=== PATIENT | male | born 1950 | race Caucasian/White ===

== ENCOUNTER 2016-03-26 17:39 | Inpatient (IN) | payer MEDICARE, BC ==
[~2016-03-26] VITALS: Ht 167.6 cm; Wt 98.3 kg
[~2016-03-26 17:39] MED LIST: AMIO200T2 PO; ASPI81TA3 PO; ATOR20TA38 PO; CARI350T29 PO; CARV25TA97 PO; CLON0.1T95 PO; CLOP75TA27 PO; GABA100C14 PO; KENC1 TOP; LISI10TA2 PO; LORA1TAB PO; MULT-860 PO; NIT4 SL; SPIR25TA PO
--- NOTE | 2016-03-26 18:55 | ERA ---
ER Documentation Chief Complaint Date/Time DATE: 03/26/16 TIME: 18:54 Chief Complaint sob, speaking in full sentences HPI 65-year-old man with history multiple medical problems including CAD status post bypass, history of V. tach status post permanent defibrillator, hypertension presents with progressive dyspnea on exertion over the last 3 days. Patient reports increasing dyspnea with exertion over the last 3 days that has now developed dyspnea at rest. He denies any chest pain or associated nausea, vomiting, diaphoresis. Reports that he has been having trouble sleeping due to his shortness of breath and sleeps almost sitting up. Denies any bilateral lower extremity edema. Patient reports that he is normally on oxygen at home but does not know why he is taking it. Denies having a history of COPD or being a smoker. He reports a mild nonproductive cough but no fevers or chills. Has never had this dyspnea before. ROS All systems reviewed and are negative except as per history of present illness. Medications Home Meds Active Scripts Carvedilol* (Coreg*) 25 Mg Tab, 25 MG PO BID for 30 Days, TAB Prov:JOSE VELASQUEZ 07/15/15 Aspirin (Aspirin) 81 Mg Chew, 81 MG PO DAILY for 30 Days Prov:LINDA ARDON 12/22/14 Reported Medications Zinc Oxide/Petrolatum,White (Remedy Phytoplex Z-Guard Paste) 113 Gm Paste..g., 113 GM TP DAILY 03/26/16 Lisinopril* (Lisinopril*) 20 Mg Tablet, 20 MG PO DAILY, #30 TAB 03/26/16 Temazepam* (Temazepam*) 15 Mg Capsule, 15 MG PO HS Y for INSOMNIA, CAP 03/26/16 Duloxetine Hcl* (Duloxetine Hcl*) 60 Mg Capsule.dr, 60 MG PO QHS, #30 CAP 03/26/16 Gabapentin* (Gabapentin*) 300 Mg Capsule, 300 MG PO BID, #60 CAP 03/26/16 Carisoprodol* (Carisoprodol*) 350 Mg Tablet, 350 MG PO BID, TAB 06/12/15 Amiodarone Hcl* (Amiodarone Hcl*) 200 Mg Tablet, 200 MG PO BID, TAB 06/12/15 Clopidogrel Bisulfate (Clopidogrel) 75 Mg Tablet, 75 MG PO DAILY, #30 TAB 02/17/15 Atorvastatin Calcium* (Atorvastatin Calcium*) 20 Mg Tablet, 20 MG PO DAILY, TAB 01/06/15 Clonidine Hcl (KAPVAY) 0.1 Mg Tab.er.12h, 0.1 MG PO BID Y for ELEVATED BLOOD PRESSURE GIVE IF BLOOD PRESSURE IS 150/90 11/12/12 Discontinued Reported Medications Mu-Vits-Min Th/Lycopene/Lutein (CENTRUM SILVER TABLET) 1 Each Tablet, 1 EACH PO DAILY, TAB 06/12/15 Lorazepam* (Lorazepam*) 1 Mg Tablet, 1 MG PO HS Y for AGITATION/ANXIETY, TAB 06/12/15 Gabapentin* (Gabapentin*) 100 Mg Capsule, 100 MG PO QHS, CAP 06/12/15 Discontinued Scripts Lisinopril* (Lisinopril*) 10 Mg Tablet, 10 MG PO DAILY for 30 Days, TAB Prov:THOMAS DYER 09/01/15 Triamcinolone Acetonide* (Kenalog*) 0.1%-15GM Cr, 1 APPLIC TOP BID for 7 Days Prov:THOMAS DYER 09/01/15 Spironolactone* (Aldactone*) 25 Mg Tab, 25 MG PO DAILY for 30 Days, TAB Prov:JOSE VELASQUEZ 07/15/15 Nitroglycerin* (Nitrostat*) 25 Tab Subl, 0.4 MG SL Q5M Y for CHEST PAIN, #30 Prov:LINDA ARDON 12/22/14 Allergies Allergies: Coded Allergies: No Known Allergy (Unverified , 03/26/16) PMhx/Soc CAD status post bypass, history of V. tach status post permanent defibrillator, hypertension History of Surgery: Yes (pls see EMR) Anesthesia Reaction: No Hx 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 Disorder: No Hx Respiratory Disorders: No Hx Cardiac Disorders: Yes (HTN, CAD, HLD) Hx Psychiatric Problems: No Hx Alcohol Use: No Hx Substance Use: No Hx Tobacco Use: No Smoking Status: Never smoker FmHx Family History: No coronary disease, No diabetes, No other Physical Exam Vitals Vital Signs Date Time Temp Pulse Resp B/P Pulse Ox O2 Delivery O2 Flow Rate FiO2 03/26/16 21:30 98.2 81 18 157/81 94 Nasal Cannula 2.0 03/26/16 19:20 Nasal Cannula 2 03/26/16 18:50 Nasal Cannula 2.0 03/26/16 17:47 99.3 80 18 156/74 92 Physical Exam General: alert, unkempt, mild to moderate distress due to dyspnea, AOx4. Head: Atraumatic, normocephalic Eyes: pupils equal and reactive, extraocular eye movements intact, sclera anicteric. Ears: bilateral TM's and external ear canals normal. Oropharynx: moist mucous membranes, pharynx normal without lesions. Neck: supple, no significant adenopathy. + JVd Heart: normal rate, regular rhythm, normal S1, S2, no murmurs, rubs, clicks or gallops. Peripheral pulses: normal Lungs: bibasilar crackles with decreased breath sounds in LLL > RLL Abdomen: soft, nontender, nondistended, no masses or organomegaly Extremities: no joint tenderness, deformity or swelling. Skin: normal coloration and turgor, no rashes, no suspicious skin lesions noted. Neurologic: Alert, moving all extremities symmetrically x 4, sensation grossly intact, no gross deficits Result Diagram: 03/26/16194903/26/161949 Results 24 hrs Laboratory Tests Test 03/26/16 19:50 Activated Partial Thromboplast Time 31.3Sec Anion Gap 12 B-Type Natriuretic Peptide 4810PG/ML Basophils # 0.010^3/ul Basophils % 0.2% Blood Urea Nitrogen 21mg/dl Calcium Level 8.8mg/dl Carbon Dioxide Level 27mmol/L Chloride Level 108mmol/L Creatinine 1.09mg/dl Eosinophils # 0.210^3/ul Eosinophils % 1.8% Glucose Level 91mg/dl Hematocrit 33.8% Hemoglobin 11.2g/dl INR International Normalized Ratio 1.13 Lymphocytes # 1.510^3/ul Lymphocytes % 13.6% Mean Corpuscular Hemoglobin 29.8pg Mean Corpuscular Hemoglobin Concent 33.0g/dl Mean Corpuscular Volume 90.1fl Mean Platelet Volume 9.2fl Monocytes # 0.910^3/ul Monocytes % 8.1% Neutrophils # 8.310^3/ul Neutrophils % 76.3% Nucleated Red Blood Cells # 0.010^3/ul Nucleated Red Blood Cells % 0.0/100WBC Platelet Count 02250^3/UL Potassium Level 4.0mmol/L Prothrombin Time 14.5Sec Prothrombin Time Ratio 1.1 Red Blood Count 3.7510^6/ul Red Cell Distribution Width 14.2% Sodium Level 143mmol/L Troponin I < 0.012ng/ml White Blood Count 10.910^3/ul Current Medications Medications (Trade) Dose Ordered Sig/Juancarlos Route PRN Reason Start Time Stop Time Status Last Admin Dose Admin Furosemide (Lasix) 20 mg ONCE ONCE IV 03/26/16 22:00 03/26/16 22:01 DC 03/26/16 21:52 Procedures/MDM EKG, MONITORS, & DIAGNOSTIC IMAGING: EKG atrially paced at [address] flattening no ST elevations, no ST depressions. Right axis deviation and right bundle branch block. Nondiagnostic EKG. CXR: IMPRESSION: 1. Mild left basilar atelectasis. 2. Mild pulmonary edema. 3. Mild cardiomegaly. 4. Previous CABG. 5. Dual lead permanent pacemaker/internal cardiac defibrillator. 6. Small left pleural effusion. LAB INTERPRETATION: WBC 10.9, hemoglobin 11.2, chemistry unremarkable. Troponin unremarkable. BNP 4810. [employer]-year-old man with history multiple medical problems including CAD status post bypass, history of V. tach status post permanent defibrillator, hypertension presents with progressive dyspnea on exertion over the last 3 days likely due to heart failure exacerbation. Patient will also require ACS rule out given he has high risk and there is no clear precipitant for developing heart failure. No prior documented echocardiogram on file patient with clinical symptoms of heart failure and a BNP in the 4000s. Afebrile vitals remarkable for tachypnea and hypoxia that improves with O2 otherwise unremarkable. Exam per note. Chest x-ray showing pulmonary venous congestion and possible left pleural effusion. EKG nondiagnostic but does have diffuse ST flattening. Patient was given aspirin and Lasix 20 mg IV for diuresis. Will admit to telemetry for continued management and workup of his heart failure exacerbation. Departure Diagnosis: Primary Impression: Shortness of breath Additional Impression: CHF exacerbation Qualified Code: I50.9 - Acute on chronic congestive heart failure, unspecified congestive heart failure type Condition: KACIE Gallegos MD Mar 26, 2016 18:55
[2016-03-26] MEDS ORDERED: GABA300C16 PO (19:12)
[2016-03-26] MEDS ORDERED: TEMA15CA PO (19:13)
[2016-03-26] MEDS ORDERED: DULO60CA59 PO (19:13)
[2016-03-26] MEDS ORDERED: LISI20TA11 PO (19:14)
[2016-03-26] MEDS ORDERED: [UNRECOGNIZED DRUG - CODE] TP (19:17)
[2016-03-26 20:11] LABS: BASOPHILS % 0.2 % (0.0-2.0); EOSINOPHILS # 0.2 10^3/ul (0.0-0.5); EOSINOPHILS % 1.8 % (0.0-7.0); HEMATOCRIT 33.8 % (42.0-52.0); HEMOGLOBIN 11.2 g/dl (14.0-18.0); LYMPHOCYTES # 1.5 10^3/ul (0.8-2.9); LYMPHOCYTES % 13.6 % (15.0-51.0); MEAN CORPUSCULAR HEMOGLOBIN 29.8 pg (29.0-33.0); MEAN CORPUSCULAR VOLUME 90.1 fl (82.0-101.0); MEAN PLATELET VOLUME 9.2 fl (7.4-10.4); MONOCYTE # 0.9 10^3/ul (0.3-0.9); MONOCYTES % 8.1 % (0.0-11.0); NEUTROPHIL # 8.3 10^3/ul (1.6-7.5); NEUTROPHILS % 76.3 % (39.0-77.0); PLATELET COUNT 291 10^3/UL (140-440); RED BLOOD COUNT 3.75 10^6/ul (4.70-6.10); RED CELL DISTRIBUTION WIDTH 14.2 % (11.5-14.5); UNCORRECTED WBC 10.9 10^3/ul (4.8-10.8); WHITE BLOOD COUNT 10.9 10^3/ul (4.8-10.8)
--- NOTE | 2016-03-26 20:11 | RADRPT ---
PROCEDURE: XR Chest. CLINICAL INDICATION: Chest pain. TECHNIQUE: Single frontal view. COMPARISON: 09/22/2015. FINDINGS: There is mild left basilar atelectasis, unchanged. There is mild pulmonary edema. The lungs are ot herwise clear. The heart is mildly enlarged. There are sternal wires and mediastinal clips. There is a left-sided dual lead permanent pacemaker/internal cardiac defibrillator. There is no right pleural effusion. There is a small left pleural effusion. There is no pneumothorax. IMPRESSION: 1. Mild left basilar atelectasis. 2. Mild pulmonary edema. 3. Mild cardiomegaly. 4. Previous CABG. 5. Dual lead permanent pacemaker/internal cardiac defibrillator. 6. Small left pleural effusion. RPTAT: QQ .Luis Govea MD, Date Time Electronically viewed and signed by .Luis Govea MD, on 03/26/2016 20:11 .R/
[2016-03-26 20:17] LABS: CHLORIDE 108 mmol/L (97-110); CONDITION 1; INR 1.13; PROTIME 14.5 Sec (12.2-14.2); PT RATIO 1.1; SODIUM 143 mmol/L (135-144)
[2016-03-26 20:19] LABS: CREATININE 1.09 mg/dl (0.61-1.24); PARTIAL THROMBOPLASTIN TIME 31.3 Sec (25.0-35.0)
[2016-03-26 20:20] LABS: ANION GAP 12 (8-16); BLOOD UREA NITROGEN 21 mg/dl (7-20); CALCIUM 8.8 mg/dl (8.4-10.2); CARBON DIOXIDE 27 mmol/L (21-31); GLUCOSE 91 mg/dl (70-220)
[2016-03-26 20:53] LABS: TROPONIN-I < 0.012 ng/ml (0.00-0.12)
[2016-03-26] MEDS ORDERED: FUROSEMIDE 20 MG INJ IV ONE (22:00)
[2016-03-27] VITALS (8 sets, daily range): BP systolic 142–174; BP diastolic 75–88; PULSE 78–80; RESP 19–80; TEMP 98.1; Ht 167.6 cm; Wt 98.3 kg
[2016-03-27] MEDS ORDERED: ACETAMINOPHEN 325 MG TAB PO PRN ×2 (04:30→12:00)
[2016-03-27 07:45] LABS: BASOPHILS % 0.4 % (0.0-2.0); EOSINOPHILS # 0.3 10^3/ul (0.0-0.5); EOSINOPHILS % 3.4 % (0.0-7.0); HEMATOCRIT 36.3 % (42.0-52.0); HEMOGLOBIN 11.9 g/dl (14.0-18.0); LYMPHOCYTES # 1.8 10^3/ul (0.8-2.9); MEAN CORPUSCULAR HEMOGLOBIN 29.5 pg (29.0-33.0); MEAN CORPUSCULAR HGB CONC 32.8 g/dl (32.0-37.0); MEAN CORPUSCULAR VOLUME 89.9 fl (82.0-101.0); MEAN PLATELET VOLUME 8.8 fl (7.4-10.4); MONOCYTE # 0.9 10^3/ul (0.3-0.9); MONOCYTES % 9.9 % (0.0-11.0); NEUTROPHIL # 6.2 10^3/ul (1.6-7.5); NEUTROPHILS % 67.3 % (39.0-77.0); PLATELET COUNT 305 10^3/UL (140-440); RED BLOOD COUNT 4.04 10^6/ul (4.70-6.10); RED CELL DISTRIBUTION WIDTH 14.3 % (11.5-14.5); UNCORRECTED WBC 9.3 10^3/ul (4.8-10.8); WHITE BLOOD COUNT 9.3 10^3/ul (4.8-10.8)
[2016-03-27 07:52] LABS: CONDITION 1
[2016-03-27 07:55] LABS: ALBUMIN 3.2 g/dl (3.3-4.9)
[2016-03-27 07:56] LABS: POTASSIUM 3.8 mmol/L (3.5-5.1)
[2016-03-27 07:58] LABS: ALBUMIN/GLOBULIN RATIO 1.06; BILIRUBIN,INDIRECT 0.6 mg/dl (0-1.1); BILIRUBIN,TOTAL 0.6 mg/dl (0.2-1.3); CREATININE 1.08 mg/dl (0.61-1.24); TOTAL PROTEIN 6.2 g/dl (6.1-8.1)
[2016-03-27 07:59] LABS: CALCIUM 8.9 mg/dl (8.4-10.2)
[2016-03-27] MEDS ORDERED: LISINOPRIL 20 MG TAB PO ONE (09:00)
[2016-03-27] MEDS ORDERED: FUROSEMIDE 20 MG INJ IV ONE (09:00)
[2016-03-27] MEDS ORDERED: ZOLPIDEM 5 MG TAB PO PRN (11:30)
[2016-03-27] MEDS: LISINOPRIL 20 MG TAB PO SCH (11:30)
--- NOTE | 2016-03-27 12:15 | HP ---
Date/Time of Note Date/Time of Note DATE: 03/27/16 TIME: 11:54 Assessment/Plan VTE Prophylaxis VTE Prophylaxis Intervention: LMWH, other Lines/Catheters IV [facility] (from [facility] Peripheral IV Urinary Cath still in place: No Assessment/Plan Assessment/Plan -Shortness of breath -CHF exacerbation - BNP 4810 - Cardiology consult appreciated - 2D Echo- to fu -Mild pulmonary edema sec to above - on lasix 20 mg PO bid - KCL- 20 meq po daily -Mild left basilar atelectasis. -Mild cardiomegaly. -SP CABG. - Dual lead permanent pacemaker/internal cardiac defibrillator. -Small left pleural effusion. -Coronary Artery Disease -History of V. tach status post permanent defibrillator - cont on Amiodarone -Hypertension- Lisinopril, clonidine -Dyslipidemia - cont on Lipitor PLAN - Admit to tele - O2 2L via [place] - Admission orders done - Resume home meds - Cardiac diet - am LABS - 2d Echo today Dw Dr Dr Kramer/staff/patient HPI/ROS Admit Date/Time Admit Date/Time Mar 26, 2016 at 21:50 Hx of Present Illness sob, speaking in full sentences HPI 65-year-old man with history multiple medical problems including CAD status post bypass, history of V. tach status post permanent defibrillator, hypertension presents with progressive dyspnea on exertion over the last 3 days. Patient reports increasing dyspnea with exertion over the last 3 days that has now developed dyspnea at rest. He denies any chest pain or associated nausea, vomiting, diaphoresis. Reports that he has been having trouble sleeping due to his shortness of breath and sleeps almost sitting up. Denies any bilateral lower extremity edema. Patient reports that he is normally on oxygen at home but does not know why he is taking it. Denies having a history of COPD or being a smoker. He reports a mild nonproductive cough but no fevers or chills. Has never had this dyspnea before. ROS All systems reviewed and are negative except as per history of present illness. Medications Home Meds Active Scripts Carvedilol* (Coreg*) 25 Mg Tab, 25 MG PO BID for 30 Days, TAB Prov:JOSE VELASQUEZ 07/15/15 Aspirin (Aspirin) 81 Mg Chew, 81 MG PO DAILY for 30 Days Prov:LINDA ARDON 10/12/15 Reported Medications Zinc Oxide/Petrolatum,White (Remedy Phytoplex Z-Guard Paste) 113 Gm Paste..g., 113 GM TP DAILY 03/26/16 Lisinopril* (Lisinopril*) 20 Mg Tablet, 20 MG PO DAILY, #30 TAB 03/26/16 Temazepam* (Temazepam*) 15 Mg Capsule, 15 MG PO HS Y for INSOMNIA, CAP 03/26/16 Duloxetine Hcl* (Duloxetine Hcl*) 60 Mg Capsule.dr, 60 MG PO QHS, #30 CAP 03/26/16 Gabapentin* (Gabapentin*) 300 Mg Capsule, 300 MG PO BID, #60 CAP 03/26/16 Carisoprodol* (Carisoprodol*) 350 Mg Tablet, 350 MG PO BID, TAB 06/12/15 Amiodarone Hcl* (Amiodarone Hcl*) 200 Mg Tablet, 200 MG PO BID, TAB 06/12/15 Clopidogrel Bisulfate (Clopidogrel) 75 Mg Tablet, 75 MG PO DAILY, #30 TAB 02/17/15 Atorvastatin Calcium* (Atorvastatin Calcium*) 20 Mg Tablet, 20 MG PO DAILY, TAB 01/06/15 Clonidine Hcl (KAPVAY) 0.1 Mg Tab.er.12h, 0.1 MG PO BID Y for ELEVATED BLOOD PRESSURE GIVE IF BLOOD PRESSURE IS 150/90 11/12/12 Discontinued Reported Medications Mu-Vits-Min Th/Lycopene/Lutein (CENTRUM SILVER TABLET) 1 Each Tablet, 1 EACH PO DAILY, TAB 06/12/15 Lorazepam* (Lorazepam*) 1 Mg Tablet, 1 MG PO HS Y for AGITATION/ANXIETY, TAB 06/12/15 Gabapentin* (Gabapentin*) 100 Mg Capsule, 100 MG PO QHS, CAP 06/12/15 Discontinued Scripts Lisinopril* (Lisinopril*) 10 Mg Tablet, 10 MG PO DAILY for 30 Days, TAB Prov:THOMAS DYER 09/01/15 Triamcinolone Acetonide* (Kenalog*) 0.1%-15GM Cr, 1 APPLIC TOP BID for 7 Days Prov:THOMAS DYER 09/01/15 Spironolactone* (Aldactone*) 25 Mg Tab, 25 MG PO DAILY for 30 Days, TAB Prov:JOSE VELASQUEZ 07/15/15 Nitroglycerin* (Nitrostat*) 25 Tab Subl, 0.4 MG SL Q5M Y for CHEST PAIN, #30 Prov:LINDA ARDON 12/22/14 Allergies Allergies: Coded Allergies: No Known Allergy (Unverified , 03/26/16) ROS Constitutional: improved, other (on o2 - 2L via [place]) ENT: no complaints Respiratory: shortness of breath (better than before) Cardiovascular: no complaints Gastrointestinal: no complaints Genitourinary: no complaints Musculoskeletal: no complaints Skin: no complaints Neurologic: no complaints Endocrine: no complaints Lymphatic: no complaints Psychological: no complaints Immunologic: no complaints PMH/Family/Social Past Medical History PMhx/Soc CAD status post bypass, history of V. tach status post permanent defibrillator, hypertension History of Surgery: Yes (pls see EMR) Anesthesia Reaction: No Hx 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 Disorder: No Hx Respiratory Disorders: No Hx Cardiac Disorders: Yes (HTN, CAD, HLD) Hx Psychiatric Problems: No Hx Alcohol Use: No Hx Substance Use: No Hx Tobacco Use: No Smoking Status: Never smoker FmHx Family History: No coronary disease, No diabetes, No other Social History Alcohol Use: none Smoking Status: Never smoker Drug Use: none Exam/Review of Systems Vital Signs Vitals Vital Signs Date Time Temp Pulse Resp B/P Pulse Ox O2 Delivery O2 Flow Rate FiO2 03/27/16 11:45 99.2 80 80 174/79 98 03/27/16 08:45 Nasal Cannula 2.0 Exam Constitutional: alert, oriented, other Psych: nl mood/affect Eyes: EOMI, PERRL, nl sclera ENMT: nl external ears & nose Neck: non-tender Respiratory: diminished breath sounds Cardiovascular: nl pulses Gastrointestinal: non-tender, soft Musculoskeletal: nl extremities to inspection Extremities: edema (Bilateral feet), normal pulses 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: nl mental status, nl speech Lymph: nontender Labs Result Diagram: 03/27/16 0723 03/27/16 0723 Medications Medications Current Medications Acetaminophen (Tylenol Tab) 650 mg Q4 PRN PO PAIN OR TEMP ABOVE 38C; Start at 04:30 Amiodarone HCl (Cordarone) 200 mg BID PO ; Start 03/27/16 at 11:30 Aspirin (Aspirin) 81 mg DAILY PO ; Start 03/27/16 at 11:30 Atorvastatin Calcium (Lipitor) 20 mg DAILY PO ; Start 03/28/16 at 09:00 Carisoprodol (Soma) 350 mg BID PO ; Start 03/27/16 at 11:30 Carvedilol (Coreg) 25 mg BID PO ; Start 03/27/16 at 11:30 Clopidogrel Bisulfate (plaVIX) 75 mg DAILY PO ; Start 03/27/16 at 11:30 Duloxetine HCl (Cymbalta) 60 mg QHS PO ; Start 03/27/16 at 21:00 Gabapentin (Neurontin) 300 mg BID PO ; Start 03/27/16 at 11:30 Lisinopril (Zestril) 20 mg DAILY PO ; Start 03/27/16 at 11:30 Clonidine (Catapres) 0.1 mg Q6H PRN PO SBP ABOVE 160; Start 03/27/16 at 11:30 Zolpidem Tartrate (Ambien) 5 mg HS PRN PO INSOMNIA; Start 03/27/16 at 11:30 Potassium Chloride (Klor-Con 20) 20 meq DAILY PO ; Start 03/27/16 at 12:00 Acetaminophen (Tylenol Tab) 650 mg Q6H PRN PO PAIN AND OR ELEVATED TEMP; Start 03/27/16 at 12:00; Status UNV Docusate Sodium (Colace) 100 mg BID PO ; Start 03/27/16 at 12:00; Status UNV Procedures Procedures 1. EKG atrially paced at [address] flattening no ST elevations, no ST depressions. Right axis deviation and right bundle branch block. Nondiagnostic EKG. 2. CXR: IMPRESSION: 1. Mild left basilar atelectasis. 2. Mild pulmonary edema. 3. Mild cardiomegaly. 4. Previous CABG. 5. Dual lead permanent pacemaker/internal cardiac defibrillator. 6. Small left pleural effusion. 3. LAB INTERPRETATION: WBC 10.9, hemoglobin 11.2, chemistry unremarkable. Troponin unremarkable. BNP 4810. THOMAS DYER Mar 27, 2016 12:04
[2016-03-27] MEDS ORDERED: PANTOPRAZOLE (EC) 40 MG TAB PO ONE (12:30)
[2016-03-27] MEDS: POTASSIUM CHLORIDE (SR) 20 MEQ TAB PO SCH (12:38)
[2016-03-27] MEDS: DOCUSATE SODIUM 100 MG CAP PO SCH ×2 (12:39→21:30)
[2016-03-27] MEDS: CLOPIDOGREL 75 MG TAB PO SCH (12:39)
[2016-03-27] MEDS: ASPIRIN 81 MG TAB PO SCH (12:39)
[2016-03-27] MEDS: AMIODARONE 200 MG TAB PO SCH ×2 (12:39→21:31)
[2016-03-27] MEDS: GABAPENTIN 300 MG CAP PO SCH ×2 (12:39→21:30)
[2016-03-27] MEDS: ENOXAPARIN 30 MG/0.3 ML SYG SC SCH (12:49)
[2016-03-27] MEDS: CARISOPRODOL 350 MG TAB PO SCH ×2 (13:35→21:31)
[2016-03-27] MEDS: FUROSEMIDE 20 MG TAB PO SCH (18:00)
--- NOTE | 2016-03-27 18:57 | CONS ---
Date/Time of Note Date/Time of Note DATE: 03/27/16 TIME: 18:50 Assessment/Plan Assessment/Plan Additional Assessment/Plan Acute decompensated congestive heart failure CAD with history of CABG Hypertension Dyslipidemia -Patient with improvement in symptoms, would adjust dosing of diuretic, continue beta gaby, APRIL inhibitor. Would check serial cardiac enzymes, echocardiogram pending. Dr Gaxiola to resume care 03/28/16 Consultation Date/Type/Reason Admit Date/Time Mar 26, 2016 at 21:50 Type of Consultation: cv Reason for Consultation Shortness of breath Hx of Present Illness This is a 65-year-old male with past medical history of cardiomyopathy, CAD with history of CABG and PCI, hypertension who presents with shortness of breath. Symptoms were going on for one day. Denied any fevers or chills, lightheadedness or chest pain. In the emergency room, symptoms slowly improved. He denies any fevers or chills, abdominal pain, nausea, vomiting or lower extremity edema. Shortness of breath was mildly worse with exertion but denied symptoms with lying down flat. 12 point review of systems was performed with all pertinent positives and negatives mentioned above and all else is negative ENT: no complaints Respiratory: shortness of breath (better than before) Cardiovascular: no complaints Gastrointestinal: no complaints Genitourinary: no complaints Musculoskeletal: no complaints Skin: no complaints Neurologic: no complaints Lymphatic: no complaints Psychological: nl mood/affect Immunologic: no complaints Past Medical History Medical History: congestive heart failure, coronary artery disease, hypertension, renal disease Past Surgical History Pacemaker/ICD Past Surgical Hx: coronary bypass surgery Family History Significant Family History: no pertinent family hx Social History Alcohol Use: none Smoking Status: Never smoker Drug Use: none Exam/Review of Systems Vital Signs Vitals Vital Signs Date Time Temp Pulse Resp B/P Pulse Ox O2 Delivery O2 Flow Rate FiO2 03/27/16 16:08 80 03/27/16 16:00 99.0 19 142/75 99 03/27/16 08:45 Nasal Cannula 2.0 Exam No apparent distress Constitutional: alert, obese, oriented Head: normocephalic Neck: supple Respiratory: other (course breath sounds bilaterally, no wheezing) Cardiovascular: other (S1 and S2 heard), regular rate and rhythm Gastrointestinal: bowel sounds, non-tender, other (no guarding), soft Extremities: other (no edema) Results Result Diagram: 03/27/16 0723 03/27/16 0723 Results 24 hrs Laboratory Tests Test 03/26/16 19:50 03/27/16 07:23 Activated Partial Thromboplast Time 31.3 Anion Gap 12 12 B-Type Natriuretic Peptide 4810 H Basophils # 0.0 0.0 Basophils % 0.2 0.4 Blood Urea Nitrogen 21 H 19 Calcium Level 8.8 8.9 Carbon Dioxide Level 27 28 Chloride Level 108 108 Creatinine 1.09 1.08 Eosinophils # 0.2 0.3 Eosinophils % 1.8 3.4 Glucose Level 91 92 Hematocrit 33.8 L 36.3 L Hemoglobin 11.2 L 11.9 L INR International Normalized Ratio 1.13 Lymphocytes # 1.5 1.8 Lymphocytes % 13.6 L 19.0 Mean Corpuscular Hemoglobin 29.8 29.5 Mean Corpuscular Hemoglobin Concent 33.0 32.8 Mean Corpuscular Volume 90.1 89.9 Mean Platelet Volume 9.2 8.8 Monocytes # 0.9 0.9 Monocytes % 8.1 9.9 Neutrophils # 8.3 H 6.2 Neutrophils % 76.3 67.3 Nucleated Red Blood Cells # 0.0 0.0 Nucleated Red Blood Cells % 0.0 0.0 Platelet Count 291 # 305 Potassium Level 4.0 3.8 Prothrombin Time 14.5 H Prothrombin Time Ratio 1.1 Red Blood Count 3.75 L 4.04 L Red Cell Distribution Width 14.2 14.3 Sodium Level 143 144 Troponin I < 0.012 White Blood Count 10.9 H 9.3 Alanine Aminotransferase (ALT/SGPT) 39 Albumin 3.2 L Albumin/Globulin Ratio 1.06 Alkaline Phosphatase 99 Aspartate Amino Transf (AST/SGOT) 25 Direct Bilirubin 0.00 Globulin 3.00 Indirect Bilirubin 0.6 Total Bilirubin 0.6 Total Protein 6.2 Medications Medications Current Medications Amiodarone HCl (Cordarone) 200 mg BID PO Last administered on 03/27/16 12:39; Admin Dose 200 MG; Start 03/27/16 at 11:30 Aspirin (Aspirin) 81 mg DAILY PO Last administered on 03/27/16 12:39; Admin Dose 81 MG; Start 03/27/16 at 11:30 Atorvastatin Calcium (Lipitor) 20 mg DAILY PO ; Start 03/28/16 at 09:00 Carisoprodol (Soma) 350 mg BID PO Last administered on 03/27/16 13:35; Admin Dose 350 MG; Start 03/27/16 at 11:30 Carvedilol (Coreg) 25 mg BID PO Last administered on 03/27/16 12:39; Admin Dose 25 MG; Start 03/27/16 at 11:30 Clopidogrel Bisulfate (plaVIX) 75 mg DAILY PO Last administered on 03/27/16 12 :39; Admin Dose 75 MG; Start 03/27/16 at 11:30 Duloxetine HCl (Cymbalta) 60 mg QHS PO ; Start 03/27/16 at 21:00 Gabapentin (Neurontin) 300 mg BID PO Last administered on 03/27/16 12:39; Admin Dose 300 MG; Start 03/27/16 at 11:30 Lisinopril (Zestril) 20 mg DAILY PO ; Start 03/27/16 at 11:30 Clonidine (Catapres) 0.1 mg Q6H PRN PO SBP ABOVE 160; Start 03/27/16 at 11:30 Zolpidem Tartrate (Ambien) 5 mg HS PRN PO INSOMNIA; Start 03/27/16 at 11:30 Potassium Chloride (Klor-Con 20) 20 meq DAILY PO Last administered on 12:38; Admin Dose 20 MEQ; Start 03/27/16 at 12:00 Acetaminophen (Tylenol Tab) 650 mg Q6H PRN PO PAIN AND OR ELEVATED TEMP; Start 03/27/16 at 12:00 Docusate Sodium (Colace) 100 mg BID PO Last administered on 03/27/16 12:39; Admin Dose 100 MG; Start 03/27/16 at 12:00 Enoxaparin Sodium (Lovenox) 30 mg DAILY SC Last administered on 03/27/16 12:49 ; Admin Dose 30 MG; Start 03/27/16 at 12:30 Pantoprazole (Protonix Tab) 40 mg DAILY@06 PO ; Start 03/28/16 at 06:00 Procedures Procedures ECG demonstrates a paced rhythm at 80 bpm, right bundle branch block, nonspecific STT wave abnormalities Josh Marcelino DO Mar 27, 2016 18:57
--- NOTE | 2016-03-27 19:24 | RADRPT ---
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 Physician: THOMAS DYER Quality: Technically Difficult Study Procedures: Transthoracic echocardiogram with complete 2D, M-Mode, and doppler examination. Indications: Congestive Heart Failure. 2D/M Mode Doppler Measurement Value Normal Ranges Measurement Value Normal Ranges LVIDd 2D 5.0 3.5 - 5.6 cm AV Peak Drew 1.8 m/sec LVIDs 2D 4.2 2.1 - 4.1 cm AV Peak PG 12.0 mmHg FS 2D 16.4 % AI Peak PG 20.0 mmHg LVPWd 2D 1.1 0.6 - 1.1 cm AI Peak Drew 2.2 m/sec IVSd 2D 1.6 0.6 - 1.1 cm AI PHT 447.0 msec IVS/LVPW 2D 1.4 LVOT Peak Drew 0.7 m/sec AoR Diam 2D 2.7 2.0 - 3.7 cm LVOT Peak PG 2.0 mmHg LA/Ao 2D 2 0 - 1 MV E Peak Drew 1.0 m/sec EDV 2D 124.0 cm3 MV A Peak Drew 0.4 m/sec ESV 2D 72.5 cm3 MV E/A 2.3 LA Dimen 2D 4.5 2.3 - 4.0 cm MV Decel Time 165 msec MV E/A 2.3 Findings Left Ventricle: Overall, normal left ventricular systolic function. Not all segments visualized. Normal left ventricular cavity size. Mild concentric left ventricular hypertrophy. Ejection fraction is visually estimated at 55 %. Abnormal Diastolic Function. Right Ventricle: Not well visualized. Left Atrium: There is mild enlargement of left atrium. Right Atrium: There is mild enlargement of right atrium. Mitral Valve: Mild mitral leaflet calcification. Trace mitral regurgitation. Aortic Valve: No hemodynamically significant aortic stenosis by doppler. Aortic cusps appear mildly calcified. Mild aortic valve regurgitation. Tricuspid Valve: Tricuspid valve not well visualized. Pulmonic Valve: Pulmonic valve not well visualized. There is trace pulmonic regurgitation. Pericardium: Normal pericardium with no significant pericardial effusion. Aorta: Normal aortic root. IVC: The IVC is not well visualized. Conclusions Overall, normal left ventricular systolic function. Not all segments visualized. Normal left ventricular cavity size. Mild concentric left ventricular hypertrophy. Ejection fraction is visually estimated at 55 %. Abnormal Diastolic Function. There is mild enlargement of left atrium. There is mild enlargement of right atrium. No significant valvular stenosis or regurgitation seen. Normal pericardium with no significant pericardial effusion. Electronically Signed By: Josh Marcelino 27-Mar-2016 19:23:14 -0800 Patient Name: JOSH ESPINO Study Date: 27-Mar-2016 [id number]
[2016-03-27 20:28] LABS: TROPONIN-I 0.013 ng/ml (0.00-0.12)
[2016-03-27 20:29] LABS: CK-MB 0.45 ng/ml (0.0-2.4); CREATINE KINASE < 20 IU/L (23-200)
[2016-03-27] MEDS: DULOXETINE 30 MG CAP DR PO SCH (21:30)
[2016-03-27] MEDS ORDERED: TEMAZEPAM 15 MG CAP PO PRN (23:00)
[2016-03-27] MEDS ORDERED: SPECIAL NON-STANDARD MEDICATION PO PRN (23:00)
[2016-03-28] VITALS (10 sets, daily range): BP systolic 123–136; BP diastolic 58–77; PULSE 70–82; RESP 16–18
[2016-03-28] MEDS: TEMAZEPAM 15 MG CAP PO PRN ×2 (01:41→23:55)
[2016-03-28] MEDS: FUROSEMIDE 20 MG TAB PO SCH ×2 (06:04→17:07)
[2016-03-28] MEDS: PANTOPRAZOLE (EC) 40 MG TAB PO SCH (06:04)
[2016-03-28 07:36] LABS: BASOPHILS % 0.1 % (0.0-2.0); EOSINOPHILS # 0.3 10^3/ul (0.0-0.5); EOSINOPHILS % 3.8 % (0.0-7.0); HEMATOCRIT 32.9 % (42.0-52.0); HEMOGLOBIN 10.9 g/dl (14.0-18.0); LYMPHOCYTES # 1.6 10^3/ul (0.8-2.9); LYMPHOCYTES % 20.1 % (15.0-51.0); MEAN CORPUSCULAR HEMOGLOBIN 29.8 pg (29.0-33.0); MEAN CORPUSCULAR HGB CONC 33.3 g/dl (32.0-37.0); MEAN CORPUSCULAR VOLUME 89.7 fl (82.0-101.0); MONOCYTE # 0.8 10^3/ul (0.3-0.9); MONOCYTES % 10.1 % (0.0-11.0); NEUTROPHIL # 5.1 10^3/ul (1.6-7.5); NEUTROPHILS % 65.9 % (39.0-77.0); PLATELET COUNT 294 10^3/UL (140-440); RED BLOOD COUNT 3.67 10^6/ul (4.70-6.10); RED CELL DISTRIBUTION WIDTH 14.1 % (11.5-14.5); UNCORRECTED WBC 7.7 10^3/ul (4.8-10.8); WHITE BLOOD COUNT 7.7 10^3/ul (4.8-10.8)
[2016-03-28 07:39] LABS: POTASSIUM 3.6 mmol/L (3.5-5.1)
[2016-03-28 07:41] LABS: CREATININE 1.06 mg/dl (0.61-1.24)
[2016-03-28 07:42] LABS: CALCIUM 8.7 mg/dl (8.4-10.2)
[2016-03-28 08:03] LABS: CONDITION 1
[2016-03-28 08:36] LABS: PHOSPHORUS 4.6 mg/dl (2.5-4.9)
[2016-03-28] MEDS: DOCUSATE SODIUM 100 MG CAP PO SCH ×2 (09:05→20:34)
[2016-03-28] MEDS: ATORVASTATIN 20 MG TAB PO SCH (09:05)
[2016-03-28] MEDS: CLOPIDOGREL 75 MG TAB PO SCH (09:05)
[2016-03-28] MEDS: GABAPENTIN 300 MG CAP PO SCH ×2 (09:06→17:05)
[2016-03-28] MEDS: POTASSIUM CHLORIDE (SR) 20 MEQ TAB PO SCH (09:06)
[2016-03-28] MEDS: LISINOPRIL 20 MG TAB PO SCH (09:06)
[2016-03-28] MEDS: ASPIRIN 81 MG TAB PO SCH (09:06)
[2016-03-28] MEDS: AMIODARONE 200 MG TAB PO SCH (09:06)
[2016-03-28] MEDS: CARISOPRODOL 350 MG TAB PO SCH ×2 (09:07→20:31)
[2016-03-28 09:10] LABS: THYROID STIMULATING HORMONE < 0.015 MIU/L (0.465-4.680)
[2016-03-28] MEDS: ENOXAPARIN 30 MG/0.3 ML SYG SC SCH (09:18)
[2016-03-28] MEDS ORDERED: POTASSIUM CHLORIDE (SR) 10 MEQ TAB PO ONE (17:00)
[2016-03-28] MEDS ORDERED: MAGNESIUM SULFATE 2 GM/50 ML 50 ML IVPB ONE (18:00)
--- NOTE | 2016-03-28 19:26 | PN ---
Date/Time of Note Date/Time of Note DATE: 03/28/16 TIME: 19:20 Assessment/Plan VTE Prophylaxis VTE Prophylaxis Intervention: LMWH Lines/Catheters [facility] Saline Lock Urinary Cath still in place: No Assessment/Plan Assessment/Plan Acute decompensated congestive heart failure. Dr. Bermeo is following in cardiology consultation. Continue Aldactone and Lasix. CAD with history of CABG Hypertension. Continue Coreg and lisinopril. Dyslipidemia. Continue statin. Recurrent V. 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 Aguilar is asked to see patient in endocrinology consultation Depression. Continue Cymbalta Continue Lovenox for deep venous thrombosis prophylaxis and Protonix for peptic ulcer disease prophylaxis. Further recommendations based on clinical course. Plan of care discussed with Dr. Contreras. Subjective 24 Hr Interval Summary Free Text/Dictation Patient continues on supplemental oxygen, denies any chest pain denies palpitation, shortness of breath on exertion, patient is sinus rhythm on telemetry. Exam/Review of Systems Vital Signs Vitals Vital Signs Date Time Temp Pulse Resp B/P Pulse Ox O2 Delivery O2 Flow Rate FiO2 03/28/16 16:41 82 03/28/16 15:28 98.4 17 136/76 96 03/28/16 12:00 Room Air 03/27/16 08:45 2.0 Intake and Output 03/27/16 03/27/16 03/28/16 14:59 22:59 06:59 Intake Total 700 ml 240 ml Output Total 600 ml 1250 ml 1800 ml Balance -600 ml -550 ml -1560 ml Exam Constitutional: alert Psych: no complaints Head: atraumatic, normocephalic ENMT: nl external ears & nose Neck: non-tender, supple Respiratory: clear to auscultation, normal air movement Cardiovascular: nl pulses, other, regular rate and rhythm Gastrointestinal: ascites, soft Extremities: normal pulses 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: 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 SERVICES 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 II-XII intact Skin: nl turgor Results Result Diagram: 03/28/16 0548 03/28/16 0548 Results 24 hrs Laboratory Tests Test 03/27/16 19:30 03/28/16 05:48 Creatine Kinase < 20 L Creatine Kinase Index Creatinine Kinase MB (Mass) 0.45 Troponin I 0.013 Anion Gap 13 Basophils # 0.0 Basophils % 0.1 Blood Urea Nitrogen 16 Calcium Level 8.7 Carbon Dioxide Level 31 Chloride Level 105 Creatinine 1.06 Eosinophils # 0.3 Eosinophils % 3.8 Glucose Level 83 Hematocrit 32.9 L Hemoglobin 10.9 L Hemoglobin A1c 5.4 Lymphocytes # 1.6 Lymphocytes % 20.1 Magnesium Level 2.0 Mean Corpuscular Hemoglobin 29.8 Mean Corpuscular Hemoglobin Concent 33.3 Mean Corpuscular Volume 89.7 Mean Platelet Volume 9.0 Monocytes # 0.8 Monocytes % 10.1 Neutrophils # 5.1 Neutrophils % 65.9 Nucleated Red Blood Cells # 0.0 Nucleated Red Blood Cells % 0.0 Phosphorus Level 4.6 Platelet Count 294 Potassium Level 3.6 Red Blood Count 3.67 L Red Cell Distribution Width 14.1 Sodium Level 145 H Thyroid Stimulating Hormone (TSH) < 0.015 L White Blood Count 7.7 Medications Medications Current Medications Amiodarone HCl (Cordarone) 200 mg BID PO Last administered on 03/28/16 09:06; Admin Dose 200 MG; Start 03/27/16 at 11:30; Status Future Hold Aspirin (Aspirin) 81 mg DAILY PO Last administered on 03/28/16 09:06; Admin Dose 81 MG; Start 03/27/16 at 11:30 Atorvastatin Calcium (Lipitor) 20 mg DAILY PO Last administered on 03/28/16 09 :05; Admin Dose 20 MG; Start 03/28/16 at 09:00 Carisoprodol (Soma) 350 mg BID PO Last administered on 03/28/16 09:07; Admin Dose 350 MG; Start 03/27/16 at 11:30 Carvedilol (Coreg) 25 mg BID PO Last administered on 03/28/16 09:07; Admin Dose 25 MG; Start 03/27/16 at 11:30 Clopidogrel Bisulfate (plaVIX) 75 mg DAILY PO Last administered on 03/28/16 09 :05; Admin Dose 75 MG; Start 03/27/16 at 11:30 Duloxetine HCl (Cymbalta) 60 mg QHS PO Last administered on 03/27/16 21:30; Admin Dose 60 MG; Start 03/27/16 at 21:00 Gabapentin (Neurontin) 300 mg BID PO Last administered on 03/28/16 17:05; Admin Dose 300 MG; Start 1/15/17 at 11:30 Lisinopril (Zestril) 20 mg DAILY PO Last administered on 03/28/16 09:06; Admin Dose 20 MG; Start 03/27/16 at 11:30 Clonidine (Catapres) 0.1 mg Q6H PRN PO SBP ABOVE 160; Start 03/27/16 at 11:30 Potassium Chloride (Klor-Con 20) 20 meq DAILY PO Last administered on 09:06; Admin Dose 20 MEQ; Start 03/27/16 at 12:00 Acetaminophen (Tylenol Tab) 650 mg Q6H PRN PO PAIN AND OR ELEVATED TEMP; Start 03/27/16 at 12:00 Docusate Sodium (Colace) 100 mg BID PO Last administered on 03/28/16 09:05; Admin Dose 100 MG; Start 03/27/16 at 12:00 Enoxaparin Sodium (Lovenox) 30 mg DAILY SC Last administered on 03/28/16 09:18 ; Admin Dose 30 MG; Start 03/27/16 at 12:30 Pantoprazole (Protonix Tab) 40 mg DAILY@06 PO Last administered on 03/28/16 06 :04; Admin Dose 40 MG; Start 03/28/16 at 06:00 Temazepam 15 mg 15 mg HS PRN PO INSOMNIA Last administered on 03/28/16 01:41; Admin Dose 15 MG; Start 03/28/16 at 00:30 Magnesium Sulfate (Magnesium Sulfate 2 Gm/50 ml) 50 ml @ 25 mls/hr ONCE ONCE IVPB Last administered on 03/28/16 18:07; Admin Dose 25 MLS/HR; Start at 18:00; Stop 03/28/16 at 19:59 Spironolactone (Aldactone) 25 mg DAILY PO ; Start 03/29/16 at 09:00 JOSE VELASQUEZ Mar 28, 2016 19:26
[2016-03-28] MEDS: DULOXETINE 30 MG CAP DR PO SCH (20:31)
--- NOTE | 2016-03-28 22:01 | RADRPT ---
PROCEDURE: US Thyroid. CLINICAL INDICATION: Thyrotoxicosis. TECHNIQUE: High-resolution sonography of the thyroid was performed in the axial and sagittal plane s. COMPARISON: None. FINDINGS: The right lobe measures 4.1 x 1.4 x 1.6 cm. The left lobe measures 3.2 x 1.2 x 1.4 cm. The isthmus measures 0.3 cm. There is no thyroid nodule. Thyroid echogenicity is normal. The thyroid is normal in size. IMPRESSION: 1. Unremarkable thyroid ultrasound. RPTAT: QQ .Luis Govea MD, MD Date Time Electronically viewed and signed by .Luis Govea MD, on 03/28/2016 22:00 .R/
--- NOTE | 2016-03-28 22:21 | PN ---
DATE: 03/28/2016 CARDIOLOGY FOLLOWUP SUBJECTIVE: The patient says he has been urinating a lot and shortness of breath is significantly i mproved. ____ with frequent PVCs and bigeminy. Denies any chest pain or pressure to me. Denies pa lpitation. MEDICATIONS: Reviewed as per medication reconciliation, was personally reviewed. PHYSICAL EXAMINATION: VITAL SIGNS: Temperature 98.4, heart rate of 80, blood pressure 136/76, respiration rate of 17, sat urating 96%. HEENT: Normocephalic, atraumatic. Obese gentleman. Pupils are equal. NECK: Supple. Positive JVD. CARDIOVASCULAR: Regular rate and rhythm, systolic murmur. PULMONARY: With rhonchi at the base. GASTROINTESTINAL: Soft, obese, nontender. EXTREMITIES: Trivial edema. NEUROLOGIC: Awake and responds appropriately. PSYCHIATRIC: Appeared to be calm and pleasant. LABORATORY: Sodium 145, potassium 3.6, BUN of 16, creatinine 1.06, glucose of 83. Mag is 2. TSH i s less than 0.015. CK less than 20. Troponin of 0.013. ASSESSMENT AND PLAN: 1. Congestive heart failure, acute on chronic, secondary to diastolic dysfunction. 2. Coronary artery disease. 3. History of myocardial infarction. 4. History of percutaneous coronary intervention. 5. History of coronary bypass graft. 6. Hypertension. 7. Ventricular arrhythmia with ventricular tachycardia, status post implanted cardioverter defibril lator placement. 8. Chronic pain syndrome. 9. Hyperthyroidism, possibly amiodarone-induced versus others. RECOMMENDATIONS: I will hold amiodarone. We will continue with the rest of his cardiac care. Also , will repeat his thyroid function tests and consider endocrine consultation as well. I will add Al dactone to his regimen as well. Beta-gaby will be continued. Continue him on telemetry. Dictated By: PEÑA CUBA MD AV/NTS Conf#: [id number] DID#: [id number] CC: RADHA LARKIN MD; TRU DAI MD;*End*
[2016-03-29] VITALS (13 sets, daily range): BP systolic 113–142; BP diastolic 65–93; PULSE 78–80; RESP 17–18
[2016-03-29] MEDS: PANTOPRAZOLE (EC) 40 MG TAB PO SCH (04:24)
[2016-03-29] MEDS: FUROSEMIDE 20 MG TAB PO SCH ×2 (04:25→18:02)
[2016-03-29 07:13] LABS: ALBUMIN 3.1 g/dl (3.3-4.9); B-TYPE NATRIURETIC PEPTIDE 2640 PG/ML (0-125); CHLORIDE 103 mmol/L (97-110)
[2016-03-29 07:14] LABS: SODIUM 144 mmol/L (135-144)
[2016-03-29 07:16] LABS: ALANINE AMINOTRANSFERASE 55 IU/L (13-69); ALBUMIN/GLOBULIN RATIO 1.06; ALKALINE PHOSPHATASE 89 IU/L (42-121); ANION GAP 15 (8-16); ASPARTATE AMINO TRANSFERASE 32 IU/L (15-46); BILIRUBIN,INDIRECT 0.2 mg/dl (0-1.1); BILIRUBIN,TOTAL 0.2 mg/dl (0.2-1.3); BLOOD UREA NITROGEN 18 mg/dl (7-20); CALCIUM 8.8 mg/dl (8.4-10.2); CARBON DIOXIDE 30 mmol/L (21-31); CREATININE 1.17 mg/dl (0.61-1.24); GLUCOSE 108 mg/dl (70-220)
[2016-03-29 07:17] LABS: MAGNESIUM 2.3 mg/dl (1.7-2.5)
[2016-03-29 07:28] LABS: BASOPHILS % 0.5 % (0.0-2.0); EOSINOPHILS # 0.3 10^3/ul (0.0-0.5); EOSINOPHILS % 4.3 % (0.0-7.0); HEMATOCRIT 34.3 % (42.0-52.0); HEMOGLOBIN 11.3 g/dl (14.0-18.0); LYMPHOCYTES # 1.8 10^3/ul (0.8-2.9); LYMPHOCYTES % 23.9 % (15.0-51.0); MEAN CORPUSCULAR HEMOGLOBIN 29.5 pg (29.0-33.0); MEAN CORPUSCULAR HGB CONC 32.9 g/dl (32.0-37.0); MEAN CORPUSCULAR VOLUME 89.5 fl (82.0-101.0); MEAN PLATELET VOLUME 8.6 fl (7.4-10.4); MONOCYTE # 0.8 10^3/ul (0.3-0.9); MONOCYTES % 10.4 % (0.0-11.0); NEUTROPHIL # 4.6 10^3/ul (1.6-7.5); NEUTROPHILS % 60.9 % (39.0-77.0); PLATELET COUNT 315 10^3/UL (140-440); RED BLOOD COUNT 3.84 10^6/ul (4.70-6.10); RED CELL DISTRIBUTION WIDTH 14.1 % (11.5-14.5); UNCORRECTED WBC 7.6 10^3/ul (4.8-10.8); WHITE BLOOD COUNT 7.6 10^3/ul (4.8-10.8)
[2016-03-29 07:36] LABS: T3 UPTAKE 48.3 % (23.5-40.5)
[2016-03-29 07:38] LABS: THYROID STIMULATING HORMONE < 0.015 MIU/L (0.465-4.680)
[2016-03-29 07:44] LABS: CONDITION 1
[2016-03-29 07:51] LABS: TRIIODOTHYRONINE 0.81 ng/ml (0.97-1.69)
[2016-03-29 07:51] LABS: CREATINE KINASE < 20 IU/L (23-200)
[2016-03-29 07:58] LABS: CK-MB 0.36 ng/ml (0.0-2.4)
[2016-03-29 07:59] LABS: TROPONIN-I 0.021 ng/ml (0.00-0.12)
[2016-03-29] MEDS: DOCUSATE SODIUM 100 MG CAP PO SCH ×2 (09:00→20:12)
--- NOTE | 2016-03-29 09:05 | RADRPT ---
PROCEDURE: XR Chest AP portable CLINICAL INDICATION: CHF TECHNIQUE: An AP portable radiograph of the chest was submitted. COMPARISON: 03/26/2016 FINDINGS: Support Hardware: None Cardiovascular: The ICD generator and leads are stable in positioning. Again there is evidence of a previous midline sternotomy. The heart has increased in size and is mildly enlarged with the pulmo nary vasculature equivocal for pulmonary venous obstruction. Lung Rendon: Subsegmental atelectasis has developed at the left lung base. Pleural Spaces: No pneumothorax or pleural effusion is identified. Osseous Structures: The osseous structures appear intact. Soft Tissues: The soft tissues appear generous. IMPRESSION: 1. The ICD generator and leads are stable in positioning and again there is evidence of a midline s ternotomy. 2. Increasing heart size with mild cardiomegaly with the pulmonary vasculature equivocal for pulmon roney venous obstruction. 3. Development of subsegmental atelectasis at the medial left lung base. Physician Jeri Date Time Electronically viewed and signed by Physician Jeri on 03/29/2016 09:05 /
[2016-03-29] MEDS: CLOPIDOGREL 75 MG TAB PO SCH (09:58)
[2016-03-29] MEDS: POTASSIUM CHLORIDE (SR) 20 MEQ TAB PO SCH (09:58)
[2016-03-29] MEDS: GABAPENTIN 300 MG CAP PO SCH ×2 (09:58→20:11)
[2016-03-29] MEDS: SPIRONOLACTONE 25 MG TAB PO SCH (09:58)
[2016-03-29] MEDS: LISINOPRIL 20 MG TAB PO SCH (09:58)
[2016-03-29] MEDS: CARISOPRODOL 350 MG TAB PO SCH ×2 (09:58→20:11)
[2016-03-29] MEDS: ATORVASTATIN 20 MG TAB PO SCH (09:59)
[2016-03-29] MEDS: ASPIRIN 81 MG TAB PO SCH (09:59)
[2016-03-29] MEDS: ENOXAPARIN 30 MG/0.3 ML SYG SC SCH (10:00)
--- NOTE | 2016-03-29 17:13 | PN ---
Date/Time of Note Date/Time of Note DATE: 03/29/16 TIME: 17:12 Assessment/Plan VTE Prophylaxis VTE Prophylaxis Intervention: SCD's Lines/Catheters [facility] Saline Lock Urinary Cath still in place: No Assessment/Plan Chief Complaint/Hosp Course Assessment/Plan Acute decompensated congestive heart failure. Dr. Bermeo is following in cardiology consultation. Continue Aldactone and Lasix. CAD with history of CABG Hypertension. Continue Coreg and lisinopril. Dyslipidemia. Continue statin. Recurrent V. 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 Aguilar is asked to see patient in endocrinology consultation Depression. Continue Cymbalta Continue Lovenox for deep venous thrombosis prophylaxis and Protonix for peptic ulcer disease prophylaxis. Further recommendations based on clinical course. Plan of care discussed with Dr. Contreras. Problems: Subjective 24 Hr Interval Summary Free Text/Dictation Patient denies any chest pain, sinus rhythm with first-degree block occasional PVCs on telemetry. Exam/Review of Systems Vital Signs Vitals Vital Signs Date Time Temp Pulse Resp B/P Pulse Ox O2 Delivery O2 Flow Rate FiO2 03/29/16 17:05 80 03/29/16 15:35 97.6 17 113/65 98 03/29/16 10:00 Nasal Cannula 2.0 Intake and Output 03/28/16 03/28/16 03/29/16 15:00 23:00 07:00 Intake Total 675 ml 240 ml Output Total 800 ml 1000 ml Balance -125 ml -760 ml Exam Constitutional: alert Psych: no complaints Head: atraumatic, normocephalic ENMT: nl external ears & nose Neck: non-tender, supple Respiratory: clear to auscultation, normal air movement Cardiovascular: nl pulses, other, regular rate and rhythm Gastrointestinal: ascites, soft Extremities: normal pulses 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: COOLER MAN II-XII intact Skin: nl turgor Results Result Diagram: 03/29/16 0600 03/29/16 0600 Results 24 hrs Laboratory Tests Test 03/29/16 06:00 03/29/16 06:14 Alanine Aminotransferase (ALT/SGPT) 55 Albumin 3.1 L Albumin/Globulin Ratio 1.06 Alkaline Phosphatase 89 Anion Gap 15 Aspartate Amino Transf (AST/SGOT) 32 B-Type Natriuretic Peptide 2640 H Basophils # 0.0 Basophils % 0.5 Blood Urea Nitrogen 18 Calcium Level 8.8 Carbon Dioxide Level 30 Chloride Level 103 Creatine Kinase < 20 L Creatine Kinase Index Creatinine 1.17 Creatinine Kinase MB (Mass) 0.36 Direct Bilirubin 0.00 Eosinophils # 0.3 Eosinophils % 4.3 Free Thyroxine 3.21 H Globulin 2.90 Glucose Level 108 Hematocrit 34.3 L Hemoglobin 11.3 L Indirect Bilirubin 0.2 Lymphocytes # 1.8 Lymphocytes % 23.9 Magnesium Level 2.3 Mean Corpuscular Hemoglobin 29.5 Mean Corpuscular Hemoglobin Concent 32.9 Mean Corpuscular Volume 89.5 Mean Platelet Volume 8.6 Monocytes # 0.8 Monocytes % 10.4 Neutrophils # 4.6 Neutrophils % 60.9 Nucleated Red Blood Cells # 0.0 Nucleated Red Blood Cells % 0.0 Platelet Count 315 Potassium Level 4.0 Red Blood Count 3.84 L Red Cell Distribution Width 14.1 Sodium Level 144 Thyroid Stimulating Hormone (TSH) < 0.015 L Total Bilirubin 0.2 Total Protein 6.0 L Troponin I 0.021 White Blood Count 7.6 Free Thyroxine Index 4.69 H Thyroxine (T4) 9.7 Total Triiodothyronine 0.81 L Triiodothyronine (T3) Uptake 48.3 H Medications Medications Current Medications Amiodarone HCl (Cordarone) 200 mg BID PO Last administered on 03/28/16 09:06; Admin Dose 200 MG; Start 03/27/16 at 11:30; Status Future Hold Aspirin (Aspirin) 81 mg DAILY PO Last administered on 03/29/16 09:59; Admin Dose 81 MG; Start 03/27/16 at 11:30 Atorvastatin Calcium (Lipitor) 20 mg DAILY PO Last administered on 03/29/16 09 :59; Admin Dose 20 MG; Start 03/28/16 at 09:00 Carisoprodol (Soma) 350 mg BID PO Last administered on 03/29/16 09:58; Admin Dose 350 MG; Start 03/27/16 at 11:30 Carvedilol (Coreg) 25 mg BID PO Last administered on 03/29/16 09:59; Admin Dose 25 MG; Start 03/27/16 at 11:30 Clopidogrel Bisulfate (plaVIX) 75 mg DAILY PO Last administered on 03/29/16 09 :58; Admin Dose 75 MG; Start 03/27/16 at 11:30 Duloxetine HCl (Cymbalta) 60 mg QHS PO Last administered on 03/28/16 20:31; Admin Dose 60 MG; Start 03/27/16 at 21:00 Gabapentin (Neurontin) 300 mg BID PO Last administered on 03/29/16 09:58; Admin Dose 300 MG; Start 03/27/16 at 11:30 Lisinopril (Zestril) 20 mg DAILY PO Last administered on 03/29/16 09:58; Admin Dose 20 MG; Start 03/27/16 at 11:30 Clonidine (Catapres) 0.1 mg Q6H PRN PO SBP ABOVE 160; Start 03/27/16 at 11:30 Potassium Chloride (Klor-Con 20) 20 meq DAILY PO Last administered on 09:58; Admin Dose 20 MEQ; Start 03/27/16 at 12:00 Acetaminophen (Tylenol Tab) 650 mg Q6H PRN PO PAIN AND OR ELEVATED TEMP; Start 03/27/16 at 12:00 Docusate Sodium (Colace) 100 mg BID PO Last administered on 03/28/16 09:05; Admin Dose 100 MG; Start 03/27/16 at 12:00 Enoxaparin Sodium (Lovenox) 30 mg DAILY SC Last administered on 03/29/16 10:00 ; Admin Dose 30 MG; Start 03/27/16 at 12:30 Pantoprazole (Protonix Tab) 40 mg DAILY@06 PO Last administered on 03/29/16 04 :24; Admin Dose 40 MG; Start 03/28/16 at 06:00 Temazepam (Restoril) 15 mg HS PRN PO INSOMNIA Last administered on 03/28/16 23 :55; Admin Dose 15 MG; Start 03/28/16 at 00:30 Spironolactone (Aldactone) 25 mg DAILY PO Last administered on 03/29/16 09:58 ; Admin Dose 25 MG; Start 03/29/16 at 09:00 JOSE VELASQUEZ Mar 29, 2016 17:13
--- NOTE | 2016-03-29 18:50 | CONS ---
Date/Time of Note Date/Time of Note DATE: 03/29/16 TIME: 18:40 Assessment/Plan Assessment/Plan Problems: (1) Amiodarone-induced hyperthyroidism Status: Chronic Comment: Amiodarone has been d/c'ed but med has very long half life. Have gotten thyroid ultrasound but no doppler report to suggest hyper vs. hypo vascular gland. Cannot perform radioactive iodine scan of thyroid because thyroid is packed full of iodine and will not take up more. This may be stimulated thyrotoxic state (amiodarone-induced thyrotoxicosis type 1) or destructive thyrotoxic state (amiodarone-induced thyrotoxicosis type 2). Type 1 should respond to high-dose methimazole while Type 2 should respond to prednisone. Since I cannot distinguish type will start both methimazole 30 mg/ d and prednisone 50 mg/d and wean doses over time. If prednisone causes hyperglycemia, will treat. Suspect patient's presenting CHF exacerbation was due to untreated thyrotoxicosis. Consultation Date/Type/Reason Admit Date/Time Mar 26, 2016 at 21:50 Date of Consultation: Mar 29, 2016 Type of Consultation: Endocrinology Reason for Consultation Thyrotoxicosis on amiodarone Referring Provider: PEÑA CUBA MD Hx of Present Illness 65 y/o C M w/ h/o HTN, hyperlipidemia, CAD s/p CABG x 5 vs, pacer, spinal stenosis with radiculopathy, in [facility] until 6 days ago when he developed progressively worsening SOB. [facility] like lungs were being squeezed but denied chest pain or palpitations. When came to ER was found to be in CHF and was admitted. TSH checked and was undetectable. Endo consulted. Constitutional: improved, no complaints Eyes: no complaints ENT: no complaints Respiratory: shortness of breath (better than before) Cardiovascular: no complaints Gastrointestinal: no complaints Genitourinary: no complaints Musculoskeletal: no complaints Neurologic: no complaints Endocrine: other (weight loss 70 pounds in 1 year), temp intolerance Past Medical History Medical History: congestive heart failure, coronary artery disease, high cholesterol, hypertension, renal disease, other (lumbar disease with radiculopathy) Past Surgical History Past Surgical Hx: coronary bypass surgery, other (lumbar surgery, pacer, tonsillectomy) Family History Significant Family History: no pertinent family hx (adopted) Social History [facility], in [place] 40 y, 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[employer], 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, no children Alcohol Use: none Smoking Status: Never smoker Drug Use: none Exam/Review of Systems Vital Signs Vitals VS - Last 72 Hours, by Label Date Time Temp Pulse Resp B/P Pulse Ox O2 Delivery O2 Flow Rate FiO2 03/29/16 17:05 80 03/29/16 15:35 97.6 81 17 113/65 98 03/29/16 12:40 78 03/29/16 12:38 78 03/29/16 11:45 98.0 79 17 130/72 97 03/29/16 10:00 Nasal Cannula 2.0 03/29/16 08:35 80 03/29/16 07:55 98.0 80 17 129/66 98 03/29/16 04:27 80 03/29/16 04:02 97.5 65 18 134/80 99 03/29/16 00:38 98.4 80 18 142/93 98 03/29/16 00:00 80 03/28/16 20:03 97.8 80 16 123/65 93 03/28/16 20:00 97.8 80 18 123/65 93 Room Air 03/28/16 20:00 80 03/28/16 16:41 82 03/28/16 15:28 98.4 80 17 136/76 96 03/28/16 12:52 80 03/28/16 12:00 97.7 81 17 134/63 96 Room Air 03/28/16 08:56 81 03/28/16 07:53 98.3 79 16 128/58 94 03/28/16 04:00 70 03/28/16 04:00 98.0 80 18 136/69 95 03/28/16 00:00 98.3 82 18 132/77 98 03/28/16 00:00 70 03/27/16 20:01 80 03/27/16 20:00 98.4 80 19 150/88 100 03/27/16 16:08 80 03/27/16 16:00 99.0 80 19 142/75 99 03/27/16 14:51 78 03/27/16 11:45 99.2 80 80 174/79 98 03/27/16 09:40 80 03/27/16 08:45 Nasal Cannula 2.0 03/27/16 08:11 98.1 71 16 176/91 98 Nasal Cannula 2.0 03/27/16 05:41 80 16 150/98 98 Nasal Cannula 2.0 03/27/16 04:15 83 16 151/76 97 Nasal Cannula 2.0 03/27/16 02:28 80 16 152/89 98 Nasal Cannula 2.0 03/27/16 00:14 81 16 154/82 97 Nasal Cannula 2.0 03/26/16 21:30 98.2 81 18 157/81 94 Nasal Cannula 2.0 03/26/16 19:20 Nasal Cannula 2 03/26/16 18:50 Nasal Cannula 2.0 Vital Signs Date Time Temp Pulse Resp B/P Pulse Ox O2 Delivery O2 Flow Rate FiO2 03/29/16 17:05 80 03/29/16 15:35 97.6 17 113/65 98 03/29/16 10:00 Nasal Cannula 2.0 Intake and Output 03/28/16 03/28/16 03/29/16 15:00 23:00 07:00 Intake Total 675 ml 240 ml Output Total 800 ml 1000 ml Balance -125 ml -760 ml Exam Constitutional: alert, obese, oriented Psych: nl mood/affect, no complaints Eyes: EOMI, PERRL, nl conjunctiva, nl lids, nl sclera ENMT: mucosa pink and moist, nl external ears & nose Neck: non-tender, supple, No bruits, No masses, No thyromegaly Respiratory: clear to auscultation, normal air movement Cardiovascular: nl pulses, regular rate and rhythm, No edema, No murmurs/extra sounds, No rub Gastrointestinal: bowel sounds, nl liver, spleen, non-tender, soft, No mass, No rebound or guarding Musculoskeletal: nl extremities to inspection Extremities: normal pulses, No clubbing, No cyanosis, No edema 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: CERTIFIED FLIGHT INSTRUCTOR II-XII intact, nl mental status, nl speech, nl strength Results Result Diagram: 03/29/16 0600 03/29/16 0600 Results 24 hrs Laboratory Tests Test 03/29/16 06:00 03/29/16 06:14 Alanine Aminotransferase (ALT/SGPT) 55 Albumin 3.1 L Albumin/Globulin Ratio 1.06 Alkaline Phosphatase 89 Anion Gap 15 Aspartate Amino Transf (AST/SGOT) 32 B-Type Natriuretic Peptide 2640 H Basophils # 0.0 Basophils % 0.5 Blood Urea Nitrogen 18 Calcium Level 8.8 Carbon Dioxide Level 30 Chloride Level 103 Creatine Kinase < 20 L Creatine Kinase Index Creatinine 1.17 Creatinine Kinase MB (Mass) 0.36 Direct Bilirubin 0.00 Eosinophils # 0.3 Eosinophils % 4.3 Free Thyroxine 3.21 H Globulin 2.90 Glucose Level 108 Hematocrit 34.3 L Hemoglobin 11.3 L Indirect Bilirubin 0.2 Lymphocytes # 1.8 Lymphocytes % 23.9 Magnesium Level 2.3 Mean Corpuscular Hemoglobin 29.5 Mean Corpuscular Hemoglobin Concent 32.9 Mean Corpuscular Volume 89.5 Mean Platelet Volume 8.6 Monocytes # 0.8 Monocytes % 10.4 Neutrophils # 4.6 Neutrophils % 60.9 Nucleated Red Blood Cells # 0.0 Nucleated Red Blood Cells % 0.0 Platelet Count 315 Potassium Level 4.0 Red Blood Count 3.84 L Red Cell Distribution Width 14.1 Sodium Level 144 Thyroid Stimulating Hormone (TSH) < 0.015 L Total Bilirubin 0.2 Total Protein 6.0 L Troponin I 0.021 White Blood Count 7.6 Free Thyroxine Index 4.69 H Thyroxine (T4) 9.7 Total Triiodothyronine 0.81 L Triiodothyronine (T3) Uptake 48.3 H Medications Medications Current Medications Amiodarone HCl (Cordarone) 200 mg BID PO Last administered on 03/28/16 09:06; Admin Dose 200 MG; Start 03/27/16 at 11:30; Status Future Hold Aspirin (Aspirin) 81 mg DAILY PO Last administered on 03/29/16 09:59; Admin Dose 81 MG; Start 03/27/16 at 11:30 Atorvastatin Calcium (Lipitor) 20 mg DAILY PO Last administered on 03/29/16 09 :59; Admin Dose 20 MG; Start 03/28/16 at 09:00 Carisoprodol (Soma) 350 mg BID PO Last administered on 03/29/16 09:58; Admin Dose 350 MG; Start 03/27/16 at 11:30 Carvedilol (Coreg) 25 mg BID PO Last administered on 03/29/16 09:59; Admin Dose 25 MG; Start 03/27/16 at 11:30 Clopidogrel Bisulfate (plaVIX) 75 mg DAILY PO Last administered on 03/29/16 09 :58; Admin Dose 75 MG; Start 03/27/16 at 11:30 Duloxetine HCl (Cymbalta) 60 mg QHS PO Last administered on 03/28/16 20:31; Admin Dose 60 MG; Start 03/27/16 at 21:00 Gabapentin (Neurontin) 300 mg BID PO Last administered on 03/29/16 09:58; Admin Dose 300 MG; Start 03/27/16 at 11:30 Lisinopril (Zestril) 20 mg DAILY PO Last administered on 03/29/16 09:58; Admin Dose 20 MG; Start 03/27/16 at 11:30 Clonidine (Catapres) 0.1 mg Q6H PRN PO SBP ABOVE 160; Start 03/27/16 at 11:30 Potassium Chloride (Klor-Con 20) 20 meq DAILY PO Last administered on 09:58; Admin Dose 20 MEQ; Start 03/27/16 at 12:00 Acetaminophen (Tylenol Tab) 650 mg Q6H PRN PO PAIN AND OR ELEVATED TEMP; Start 03/27/16 at 12:00 Docusate Sodium (Colace) 100 mg BID PO Last administered on 03/28/16 09:05; Admin Dose 100 MG; Start 03/27/16 at 12:00 Enoxaparin Sodium (Lovenox) 30 mg DAILY SC Last administered on 03/29/16 10:00 ; Admin Dose 30 MG; Start 03/27/16 at 12:30 Pantoprazole (Protonix Tab) 40 mg DAILY@06 PO Last administered on 03/29/16 04 :24; Admin Dose 40 MG; Start 03/28/16 at 06:00 Temazepam (Restoril) 15 mg HS PRN PO INSOMNIA Last administered on 03/28/16 23 :55; Admin Dose 15 MG; Start 03/28/16 at 00:30 Spironolactone (Aldactone) 25 mg DAILY PO Last administered on 03/29/16 09:58 ; Admin Dose 25 MG; Start 03/29/16 at 09:00 DAVID ALVARADO MD Mar 29, 2016 18:50
[2016-03-29] MEDS: DULOXETINE 30 MG CAP DR PO SCH (20:10)
[2016-03-29] MEDS: TEMAZEPAM 15 MG CAP PO PRN (23:21)
[2016-03-30] VITALS (13 sets, daily range): BP systolic 115–161; BP diastolic 61–81; PULSE 79–84; RESP 17–20
[2016-03-30] MEDS: PANTOPRAZOLE (EC) 40 MG TAB PO SCH (05:04)
[2016-03-30] MEDS: FUROSEMIDE 20 MG TAB PO SCH ×2 (05:09→17:14)
--- NOTE | 2016-03-30 07:42 | PN ---
DATE: 03/29/2016 CARDIOLOGY FOLLOWUP SUBJECTIVE: Discussed with the staff and the history was reviewed. Patient with frequent PVCs, ___ __ slightly improved. No reported chest pain or pressure. has improved. MEDICATIONS: Reviewed. PHYSICAL EXAMINATION: VITAL SIGNS: Temperature 98, heart rate of 78, blood pressure 130/72, respiration rate of 17 and sa turating 97%. HEENT: Normocephalic, atraumatic. Pupils are equal. CARDIOVASCULAR: Regular rate and rhythm, systolic murmur. PULMONARY: With minimal rhonchi. GASTROINTESTINAL: Obese, soft, nontender. EXTREMITIES: Trivial edema. NEUROLOGIC: Comfortably sleeping. PSYCHIATRIC: Appears to be calm. LABORATORY: WBC of 7.6, hemoglobin 11.3, platelets 315. Sodium 144, potassium 4, BUN up to 18, cre atinine 1.15 , glucose 108. ProBNP of 2640. TSH is less than 0.015. Free T4 is 3.21. ASSESSMENT AND PLAN: 1. Congestive heart failure exacerbation, acute on chronic systolic and diastolic dysfunction. 2. Coronary artery disease with history of myocardial infarction. 3. History of percutaneous coronary intervention. 4. History of bypass surgery. 5. Hypertension. 6. , status post ICD placement, history of nonsustained VT and chronic pain syndrome. 7. Thyroid disorder with hyperthyroidism. RECOMMENDATIONS: Amiodarone is on hold. Continue with the beta gaby. APRIL inhibitor will be con tinued. I have asked Dr. Aguilar to evaluate the patient from the endocrine standpoint. be c orrected as needed. Dictated By: PEÑA BELLO/ANN Conf#: [id number] DID#: [id number]
[2016-03-30 07:54] LABS: ALBUMIN 3.2 g/dl (3.3-4.9)
[2016-03-30 07:55] LABS: POTASSIUM 4.2 mmol/L (3.5-5.1)
[2016-03-30 07:56] LABS: CREATININE 1.25 mg/dl (0.61-1.24)
[2016-03-30 07:57] LABS: ALBUMIN/GLOBULIN RATIO 1.1; BILIRUBIN,INDIRECT 0.1 mg/dl (0-1.1); BILIRUBIN,TOTAL 0.1 mg/dl (0.2-1.3); CALCIUM 8.9 mg/dl (8.4-10.2); TOTAL PROTEIN 6.1 g/dl (6.1-8.1)
[2016-03-30 07:58] LABS: MAGNESIUM 2.2 mg/dl (1.7-2.5)
[2016-03-30] MEDS: DOCUSATE SODIUM 100 MG CAP PO SCH ×2 (08:32→21:22)
[2016-03-30] MEDS: ASPIRIN 81 MG TAB PO SCH (08:33)
[2016-03-30] MEDS: METHIMAZOLE 5 MG TAB PO SCH (08:33)
[2016-03-30] MEDS: ATORVASTATIN 20 MG TAB PO SCH (08:33)
[2016-03-30] MEDS: SPIRONOLACTONE 25 MG TAB PO SCH (08:34)
[2016-03-30] MEDS: POTASSIUM CHLORIDE (SR) 20 MEQ TAB PO SCH (08:34)
[2016-03-30] MEDS: GABAPENTIN 300 MG CAP PO SCH ×2 (08:35→21:21)
[2016-03-30] MEDS: CLOPIDOGREL 75 MG TAB PO SCH (08:35)
[2016-03-30] MEDS: predniSONE 50 MG TAB PO SCH (08:35)
[2016-03-30] MEDS: CARISOPRODOL 350 MG TAB PO SCH ×2 (08:35→21:21)
[2016-03-30] MEDS: LISINOPRIL 20 MG TAB PO SCH (08:37)
[2016-03-30] MEDS: ENOXAPARIN 30 MG/0.3 ML SYG SC SCH (08:38)
--- NOTE | 2016-03-30 17:51 | CONS ---
Date/Time of Note Date/Time of Note DATE: 03/30/16 TIME: 17:49 Assessment/Plan Assessment/Plan Problems: (1) Amiodarone-induced hyperthyroidism Status: Chronic Comment: Started methimazole 30 mg/d and prednisone 50 mg/d this am. Will monitor for adverse effects. Will recheck thyroid function in 1 week if pt. remains in house. If not, recheck 1 month. Consultation Date/Type/Reason Admit Date/Time Mar 26, 2016 at 21:50 Initial Consult Date 03/29/16 Type of Consultation: Endocrinology Reason for Consultation Thyrotoxicosis on amiodarone Referring Provider: PEÑA CUBA MD 24 HR Interval Summary Constitutional: improved, no complaints Detailed Summary Respiratory: no complaints Cardiovascular: no complaints Gastrointestinal: no complaints Genitourinary: no complaints Musculoskeletal: no complaints Neurologic: no complaints Exam/Review of Systems Vital Signs Vitals VS - Last 72 Hours, by Label Date Time Temp Pulse Resp B/P Pulse Ox O2 Delivery O2 Flow Rate FiO2 03/30/16 16:37 80 03/30/16 15:58 98.2 83 17 115/61 95 03/30/16 12:33 80 03/30/16 11:54 97.5 80 17 133/71 95 03/30/16 08:23 79 03/30/16 08:20 98.1 78 17 161/74 94 03/30/16 04:48 80 03/30/16 04:35 98.7 80 18 142/68 96 Room Air 03/30/16 04:33 84 03/30/16 00:19 80 03/30/16 00:00 97.6 79 20 143/81 96 Room Air 03/29/16 20:42 80 03/29/16 20:31 98.5 69 17 124/72 96 03/29/16 20:05 Nasal Cannula 2.0 03/29/16 17:05 80 03/29/16 15:35 97.6 81 17 113/65 98 03/29/16 12:40 78 03/29/16 12:38 78 03/29/16 11:45 98.0 79 17 130/72 97 03/29/16 10:00 Nasal Cannula 2.0 03/29/16 08:35 80 03/29/16 07:55 98.0 80 17 129/66 98 03/29/16 04:27 80 03/29/16 04:02 97.5 65 18 134/80 99 03/29/16 00:38 98.4 80 18 142/93 98 03/29/16 00:00 80 03/28/16 20:03 97.8 80 16 123/65 93 03/28/16 20:00 97.8 80 18 123/65 93 Room Air 03/28/16 20:00 80 03/28/16 16:41 82 03/28/16 15:28 98.4 80 17 136/76 96 03/28/16 12:52 80 03/28/16 12:00 97.7 81 17 134/63 96 Room Air 03/28/16 08:56 81 03/28/16 07:53 98.3 79 16 128/58 94 03/28/16 04:00 70 03/28/16 04:00 98.0 80 18 136/69 95 03/28/16 00:00 98.3 82 18 132/77 98 03/28/16 00:00 70 03/27/16 20:01 80 03/27/16 20:00 98.4 80 19 150/88 100 Vital Signs Date Time Temp Pulse Resp B/P Pulse Ox O2 Delivery O2 Flow Rate FiO2 03/30/16 16:37 80 03/30/16 15:58 98.2 17 115/61 95 03/30/16 04:35 Room Air 03/29/16 20:05 2.0 Intake and Output 03/29/16 03/29/16 03/30/16 15:00 23:00 07:00 Intake Total 650 ml 720 ml Output Total 800 ml 300 ml Balance -150 ml 420 ml Exam Constitutional: alert, obese, oriented Psych: nl mood/affect, no complaints Respiratory: clear to auscultation, normal air movement Cardiovascular: edema (1+ BLE), nl pulses, regular rate and rhythm, No murmurs/extra sounds, No rub Gastrointestinal: bowel sounds, nl liver, spleen, non-tender, soft, No mass, No rebound or guarding Musculoskeletal: nl extremities to inspection Extremities: edema (1+ BLE), normal pulses, No clubbing, No cyanosis 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: TUBE SPLICER II-XII intact, nl mental status, nl speech, nl strength Results Result Diagram: 03/29/16 0600 03/30/16 0650 Results 24 hrs Laboratory Tests Test 03/30/16 06:50 Alanine Aminotransferase (ALT/SGPT) 57 Albumin 3.2 L Albumin/Globulin Ratio 1.10 Alkaline Phosphatase 92 Anion Gap 14 Aspartate Amino Transf (AST/SGOT) 37 B-Type Natriuretic Peptide 2360 H Blood Urea Nitrogen 20 Calcium Level 8.9 Carbon Dioxide Level 31 Chloride Level 105 Creatinine 1.25 H Direct Bilirubin 0.00 Globulin 2.90 Glucose Level 107 Indirect Bilirubin 0.1 Magnesium Level 2.2 Potassium Level 4.2 Sodium Level 146 H Total Bilirubin 0.1 L Total Protein 6.1 Medications Medications Current Medications Amiodarone HCl (Cordarone) 200 mg BID PO Last administered on 03/28/16 09:06; Admin Dose 200 MG; Start 03/27/16 at 11:30; Status Future Hold Aspirin (Aspirin) 81 mg DAILY PO Last administered on 03/30/16 08:33; Admin Dose 81 MG; Start 03/27/16 at 11:30 Atorvastatin Calcium (Lipitor) 20 mg DAILY PO Last administered on 03/30/16 08 :33; Admin Dose 20 MG; Start 03/28/16 at 09:00 Carisoprodol (Soma) 350 mg BID PO Last administered on 03/30/16 08:35; Admin Dose 350 MG; Start 03/27/16 at 11:30 Carvedilol (Coreg) 25 mg BID PO Last administered on 03/30/16 08:36; Admin Dose 25 MG; Start 03/27/16 at 11:30 Clopidogrel Bisulfate (plaVIX) 75 mg DAILY PO Last administered on 03/30/16 08 :35; Admin Dose 75 MG; Start 03/27/16 at 11:30 Duloxetine HCl (Cymbalta) 60 mg QHS PO Last administered on 03/29/16 20:10; Admin Dose 60 MG; Start 03/27/16 at 21:00 Gabapentin (Neurontin) 300 mg BID PO Last administered on 03/30/16 08:35; Admin Dose 300 MG; Start 03/27/16 at 11:30 Lisinopril (Zestril) 20 mg DAILY PO Last administered on 03/30/16 08:37; Admin Dose 20 MG; Start 03/27/16 at 11:30 Clonidine (Catapres) 0.1 mg Q6H PRN PO SBP ABOVE 160; Start 03/27/16 at 11:30 Potassium Chloride (Klor-Con 20) 20 meq DAILY PO Last administered on 08:34; Admin Dose 20 MEQ; Start 03/27/16 at 12:00 Acetaminophen (Tylenol Tab) 650 mg Q6H PRN PO PAIN AND OR ELEVATED TEMP; Start 03/27/16 at 12:00 Docusate Sodium (Colace) 100 mg BID PO Last administered on 03/28/16 09:05; Admin Dose 100 MG; Start 03/27/16 at 12:00 Enoxaparin Sodium (Lovenox) 30 mg DAILY SC Last administered on 03/30/16 08:38 ; Admin Dose 30 MG; Start 03/27/16 at 12:30 Pantoprazole (Protonix Tab) 40 mg DAILY@06 PO Last administered on 03/30/16 05 :04; Admin Dose 40 MG; Start 03/28/16 at 06:00 Temazepam (Restoril) 15 mg HS PRN PO INSOMNIA Last administered on 03/29/16 23 :21; Admin Dose 15 MG; Start 03/28/16 at 00:30 Spironolactone (Aldactone) 25 mg DAILY PO Last administered on 03/30/16 08:34 ; Admin Dose 25 MG; Start 03/29/16 at 09:00 Methimazole (Tapazole) 30 mg DAILY PO Last administered on 03/30/16 08:33; Admin Dose 30 MG; Start 03/30/16 at 09:00 Prednisone (Prednisone) 50 mg DAILY PO Last administered on 03/30/16 08:35; Admin Dose 50 MG; Start 03/30/16 at 09:00 DAVID ALVARADO MD Mar 30, 2016 17:51
--- NOTE | 2016-03-30 18:36 | PN ---
Date/Time of Note Date/Time of Note DATE: 03/30/16 TIME: 18:30 Assessment/Plan VTE Prophylaxis VTE Prophylaxis Intervention: SCD's Lines/Catheters IV [facility] Type [facility] Saline Lock Urinary Cath still in place: No Assessment/Plan Chief Complaint/Hosp Course Assessment/Plan Acute decompensated congestive heart failure. Dr. Bermeo is following in cardiology consultation. Continue Aldactone and Lasix. CAD with history of CABG Hypertension. Continue Coreg and lisinopril. Dyslipidemia. Continue statin. Recurrent V. tach status post AICD placement Amiodarone induced hyperthyroidism, Dr. Aguilar is asked to see patient in endocrinology consultation, patient is started on Tapazole and prednisone. Depression. Continue Cymbalta Continue Lovenox for deep venous thrombosis prophylaxis and Protonix for peptic ulcer disease prophylaxis. Further recommendations based on clinical course. Plan of care discussed with Dr. Hu. Problems: Subjective 24 Hr Interval Summary Free Text/Dictation Patient denies any nausea and vomiting denies palpitations, sinus rhythm on telemetry with occasional V pacing and PVCs. Exam/Review of Systems Vital Signs Vitals Vital Signs Date Time Temp Pulse Resp B/P Pulse Ox O2 Delivery O2 Flow Rate FiO2 03/30/16 16:37 80 03/30/16 15:58 98.2 17 115/61 95 03/30/16 04:35 Room Air 03/29/16 20:05 2.0 Intake and Output 03/29/16 03/29/16 03/30/16 15:00 23:00 07:00 Intake Total 650 ml 720 ml Output Total 800 ml 300 ml Balance -150 ml 420 ml Exam Constitutional: alert Psych: no complaints Head: atraumatic, normocephalic ENMT: nl external ears & nose Neck: non-tender, supple Respiratory: clear to auscultation, normal air movement Cardiovascular: nl pulses, other, regular rate and rhythm Gastrointestinal: ascites, soft Extremities: normal pulses 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: QUALITY ASSURANCE TESTER II-XII intact Skin: nl turgor Results Result Diagram: 03/29/16 0600 03/30/16 0650 Results 24 hrs Laboratory Tests Test 03/30/16 06:50 Alanine Aminotransferase (ALT/SGPT) 57 Albumin 3.2 L Albumin/Globulin Ratio 1.10 Alkaline Phosphatase 92 Anion Gap 14 Aspartate Amino Transf (AST/SGOT) 37 B-Type Natriuretic Peptide 2360 H Blood Urea Nitrogen 20 Calcium Level 8.9 Carbon Dioxide Level 31 Chloride Level 105 Creatinine 1.25 H Direct Bilirubin 0.00 Globulin 2.90 Glucose Level 107 Indirect Bilirubin 0.1 Magnesium Level 2.2 Potassium Level 4.2 Sodium Level 146 H Total Bilirubin 0.1 L Total Protein 6.1 Medications Medications Current Medications Amiodarone HCl (Cordarone) 200 mg BID PO Last administered on 03/28/16 09:06; Admin Dose 200 MG; Start 03/27/16 at 11:30; Status Future Hold Aspirin (Aspirin) 81 mg DAILY PO Last administered on 03/30/16 08:33; Admin Dose 81 MG; Start 03/27/16 at 11:30 Atorvastatin Calcium (Lipitor) 20 mg DAILY PO Last administered on 03/30/16 08 :33; Admin Dose 20 MG; Start 03/28/16 at 09:00 Carisoprodol (Soma) 350 mg BID PO Last administered on 03/30/16 08:35; Admin Dose 350 MG; Start 03/27/16 at 11:30 Carvedilol (Coreg) 25 mg BID PO Last administered on 03/30/16 08:36; Admin Dose 25 MG; Start 03/27/16 at 11:30 Clopidogrel Bisulfate (plaVIX) 75 mg DAILY PO Last administered on 03/30/16 08 :35; Admin Dose 75 MG; Start 03/27/16 at 11:30 Duloxetine HCl (Cymbalta) 60 mg QHS PO Last administered on 03/29/16 20:10; Admin Dose 60 MG; Start 03/27/16 at 21:00 Gabapentin (Neurontin) 300 mg BID PO Last administered on 03/30/16 08:35; Admin Dose 300 MG; Start 03/27/16 at 11:30 Lisinopril (Zestril) 20 mg DAILY PO Last administered on 03/30/16 08:37; Admin Dose 20 MG; Start 03/27/16 at 11:30 Clonidine (Catapres) 0.1 mg Q6H PRN PO SBP ABOVE 160; Start 03/27/16 at 11:30 Potassium Chloride (Klor-Con 20) 20 meq DAILY PO Last administered on 08:34; Admin Dose 20 MEQ; Start 03/27/16 at 12:00 Acetaminophen (Tylenol Tab) 650 mg Q6H PRN PO PAIN AND OR ELEVATED TEMP; Start 03/27/16 at 12:00 Docusate Sodium (Colace) 100 mg BID PO Last administered on 03/28/16 09:05; Admin Dose 100 MG; Start 03/27/16 at 12:00 Enoxaparin Sodium (Lovenox) 30 mg DAILY SC Last administered on 03/30/16 08:38 ; Admin Dose 30 MG; Start 03/27/16 at 12:30 Pantoprazole (Protonix Tab) 40 mg DAILY@06 PO Last administered on 03/30/16 05 :04; Admin Dose 40 MG; Start 03/28/16 at 06:00 Temazepam (Restoril) 15 mg HS PRN PO INSOMNIA Last administered on 03/29/16 23 :21; Admin Dose 15 MG; Start 03/28/16 at 00:30 Spironolactone (Aldactone) 25 mg DAILY PO Last administered on 03/30/16 08:34 ; Admin Dose 25 MG; Start 03/29/16 at 09:00 Methimazole (Tapazole) 30 mg DAILY PO Last administered on 03/30/16 08:33; Admin Dose 30 MG; Start 03/30/16 at 09:00 Prednisone (Prednisone) 50 mg DAILY PO Last administered on 03/30/16 08:35; Admin Dose 50 MG; Start 03/30/16 at 09:00 JOSE VELASQUEZ Mar 30, 2016 18:36
[2016-03-30] MEDS: DULOXETINE 30 MG CAP DR PO SCH (21:21)
[2016-03-30] MEDS: TEMAZEPAM 15 MG CAP PO PRN (23:17)
[2016-03-31] VITALS (13 sets, daily range): BP systolic 120–170; BP diastolic 56–81; PULSE 80; RESP 17–22
[2016-03-31 04:54] LABS: THYROID MICROSOMAL ANTIBODY 1 IU/mL (<9)
[2016-03-31] MEDS: PANTOPRAZOLE (EC) 40 MG TAB PO SCH (05:35)
[2016-03-31] MEDS: FUROSEMIDE 20 MG TAB PO SCH ×2 (05:35→17:49)
[2016-03-31 07:45] LABS: ALBUMIN 3.1 g/dl (3.3-4.9)
[2016-03-31 07:48] LABS: ALBUMIN/GLOBULIN RATIO 1.03; BILIRUBIN,INDIRECT 0.2 mg/dl (0-1.1); BILIRUBIN,TOTAL 0.2 mg/dl (0.2-1.3); CREATININE 1.17 mg/dl (0.61-1.24); TOTAL PROTEIN 6.1 g/dl (6.1-8.1)
[2016-03-31 07:49] LABS: MAGNESIUM 2.1 mg/dl (1.7-2.5)
[2016-03-31] MEDS: ASPIRIN 81 MG TAB PO SCH (08:49)
[2016-03-31] MEDS: LISINOPRIL 20 MG TAB PO SCH (08:49)
[2016-03-31] MEDS: CLOPIDOGREL 75 MG TAB PO SCH (08:49)
[2016-03-31] MEDS: GABAPENTIN 300 MG CAP PO SCH ×2 (08:49→21:08)
[2016-03-31] MEDS: predniSONE 50 MG TAB PO SCH (08:49)
[2016-03-31] MEDS: POTASSIUM CHLORIDE (SR) 20 MEQ TAB PO SCH (08:49)
[2016-03-31] MEDS: SPIRONOLACTONE 25 MG TAB PO SCH (08:50)
[2016-03-31] MEDS: ATORVASTATIN 20 MG TAB PO SCH (08:50)
[2016-03-31] MEDS: CARISOPRODOL 350 MG TAB PO SCH ×2 (08:50→21:08)
[2016-03-31] MEDS: METHIMAZOLE 5 MG TAB PO SCH (08:50)
[2016-03-31] MEDS: ENOXAPARIN 30 MG/0.3 ML SYG SC SCH (08:58)
[2016-03-31] MEDS: DOCUSATE SODIUM 100 MG CAP PO SCH ×2 (08:58→21:00)
--- NOTE | 2016-03-31 09:14 | PN ---
DATE: 03/31/2016 CARDIOLOGY FOLLOWUP PROGRESS NOTE SUBJECTIVE: Discussed with the staff. Rhythm strip reviewed. Remains in sinus rhythm with occasio nal PVCs. No chest pain or pressure, is feeling better now. MEDICATIONS: Reviewed as per medication reconciliation, personally reviewed. PHYSICAL EXAMINATION: VITAL SIGNS: Temperature 98.2, heart rate of 80, blood pressure 140/70, respiratory rate of 17, sat urating 98%. HEENT: Normocephalic, atraumatic. Pupils are equal. CARDIOVASCULAR: Regular rate and rhythm. Systolic murmur. PULMONARY: With no wheezes now. GASTROINTESTINAL: Soft, nontender. EXTREMITIES: With trivial lower extremity edema. NEUROLOGIC: Awake, . LABORATORY: Sodium 146, potassium 4.2, BUN of 20, creatinine 1.25, glucose of 107. ProBNP of 2360. Albumin is 3.2. ASSESSMENT AND PLAN: 1. Congestive heart failure, acute on chronic, secondary to diastolic dysfunction. 2. Coronary artery disease. 3. History of myocardial infarction. 4. History of percutaneous coronary intervention. 5. History of . 6. Hyperthyroidism. 7. Ventricular tachycardia status post implantable cardioverter/defibrillator placement. 8. Hypertension. 9. Dyslipidemia. 10. Diabetes. RECOMMENDATIONS: Follow up with endocrine recommendations. Patient currently on methimazole. We w ill continue with current blood pressure medications. Respiratory care will be continued. Sylvester reis planning once okay from the internal medicine standpoint. Dictated By: PEÑA CUBA MD AV/ANN Conf#: [id number] DID#: [id number] CC: RADHA LARKIN MD;*End*
--- NOTE | 2016-03-31 18:10 | CONS ---
Date/Time of Note Date/Time of Note DATE: 03/31/16 TIME: 18:07 Assessment/Plan Assessment/Plan Problems: (1) Amiodarone-induced hyperthyroidism Status: Chronic Comment: Continue methimazole 30 mg/d and prednisone 50 mg/d. No obvious effect on fasting glucose of prednisone. Defer to primary team and cardiology for discharge date. Pt. will continue on these meds at these doses until after discharge and should be further evaluated for improvement in thyroid function as outpt. Consultation Date/Type/Reason Admit Date/Time Mar 26, 2016 at 21:50 Initial Consult Date 03/29/16 Type of Consultation: Endocrinology Reason for Consultation Hyperthyroidism on amiodarone Referring Provider: PEÑA CUBA MD 24 HR Interval Summary Constitutional: requiring O2 Detailed Summary Respiratory: other (congested, especially when he lies flat) Cardiovascular: no complaints Gastrointestinal: no complaints Genitourinary: no complaints Musculoskeletal: no complaints Neurologic: no complaints Exam/Review of Systems Vital Signs Vitals VS - Last 72 Hours, by Label Date Time Temp Pulse Resp B/P Pulse Ox O2 Delivery O2 Flow Rate FiO2 03/31/16 16:22 80 03/31/16 15:41 97.4 80 20 122/56 96 03/31/16 12:21 80 03/31/16 11:34 97.7 80 20 120/61 98 03/31/16 08:20 80 03/31/16 07:56 97.5 90 20 131/77 98 03/31/16 04:49 80 03/31/16 04:37 98.2 17 140/70 98 03/31/16 00:17 98.3 80 18 145/75 97 03/31/16 00:14 80 03/30/16 21:02 80 03/30/16 21:00 Nasal Cannula 2.0 03/30/16 20:00 98.2 83 18 143/80 98 03/30/16 16:37 80 03/30/16 15:58 98.2 83 17 115/61 95 03/30/16 12:33 80 03/30/16 11:54 97.5 80 17 133/71 95 03/30/16 08:23 79 03/30/16 08:20 98.1 78 17 161/74 94 03/30/16 04:48 80 03/30/16 04:35 98.7 80 18 142/68 96 Room Air 03/30/16 04:33 84 03/30/16 00:19 80 03/30/16 00:00 97.6 79 20 143/81 96 Room Air 03/29/16 20:42 80 03/29/16 20:31 98.5 69 17 124/72 96 03/29/16 20:05 Nasal Cannula 2.0 03/29/16 17:05 80 03/29/16 15:35 97.6 81 17 113/65 98 03/29/16 12:40 78 03/29/16 12:38 78 03/29/16 11:45 98.0 79 17 130/72 97 03/29/16 10:00 Nasal Cannula 2.0 03/29/16 08:35 80 03/29/16 07:55 98.0 80 17 129/66 98 03/29/16 04:27 80 03/29/16 04:02 97.5 65 18 134/80 99 03/29/16 00:38 98.4 80 18 142/93 98 03/29/16 00:00 80 03/28/16 20:03 97.8 80 16 123/65 93 03/28/16 20:00 97.8 80 18 123/65 93 Room Air 03/28/16 20:00 80 Vital Signs Date Time Temp Pulse Resp B/P Pulse Ox O2 Delivery O2 Flow Rate FiO2 03/31/16 16:22 80 03/31/16 15:41 97.4 20 122/56 96 03/30/16 21:00 Nasal Cannula 2.0 Intake and Output 03/30/16 03/30/16 03/31/16 15:00 23:00 07:00 Intake Total 800 ml 450 ml Output Total 700 ml Balance 800 ml -250 ml Exam Constitutional: alert, obese, oriented Psych: nl mood/affect, no complaints Respiratory: clear to auscultation, normal air movement Cardiovascular: nl pulses, regular rate and rhythm, No edema, No murmurs/extra sounds, No rub Gastrointestinal: bowel sounds, nl liver, spleen, non-tender, soft, No mass, No rebound or guarding Musculoskeletal: nl extremities to inspection Extremities: normal pulses, No clubbing, No cyanosis, No edema 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: TOP FLAVOR ATTENDANT II-XII intact, nl mental status, nl speech, nl strength Results Result Diagram: 03/29/16 0600 03/31/16 0640 Results 24 hrs Laboratory Tests Test 03/31/16 06:40 Alanine Aminotransferase (ALT/SGPT) 59 Albumin 3.1 L Albumin/Globulin Ratio 1.03 Alkaline Phosphatase 87 Anion Gap 13 Aspartate Amino Transf (AST/SGOT) 32 B-Type Natriuretic Peptide 5010 H Blood Urea Nitrogen 21 H Calcium Level 9.0 Carbon Dioxide Level 32 H Chloride Level 104 Creatinine 1.17 Direct Bilirubin 0.00 Globulin 3.00 Glucose Level 95 Indirect Bilirubin 0.2 Magnesium Level 2.1 Potassium Level 4.0 Sodium Level 145 H Total Bilirubin 0.2 Total Protein 6.1 Medications Medications Current Medications Amiodarone HCl (Cordarone) 200 mg BID PO Last administered on 03/28/16 09:06; Admin Dose 200 MG; Start 03/27/16 at 11:30; Status Future Hold Aspirin (Aspirin) 81 mg DAILY PO Last administered on 03/31/16 08:49; Admin Dose 81 MG; Start 03/27/16 at 11:30 Atorvastatin Calcium (Lipitor) 20 mg DAILY PO Last administered on 03/31/16 08 :50; Admin Dose 20 MG; Start 03/28/16 at 09:00 Carisoprodol (Soma) 350 mg BID PO Last administered on 03/31/16 08:50; Admin Dose 350 MG; Start 03/27/16 at 11:30 Carvedilol (Coreg) 25 mg BID PO Last administered on 03/31/16 08:50; Admin Dose 25 MG; Start 03/27/16 at 11:30 Clopidogrel Bisulfate (plaVIX) 75 mg DAILY PO Last administered on 03/31/16 08 :49; Admin Dose 75 MG; Start 03/27/16 at 11:30 Duloxetine HCl (Cymbalta) 60 mg QHS PO Last administered on 03/30/16 21:21; Admin Dose 60 MG; Start 03/27/16 at 21:00 Gabapentin (Neurontin) 300 mg BID PO Last administered on 03/31/16 08:49; Admin Dose 300 MG; Start 03/27/16 at 11:30 Lisinopril (Zestril) 20 mg DAILY PO Last administered on 03/31/16 08:49; Admin Dose 20 MG; Start 1/15/17 at 11:30 Clonidine (Catapres) 0.1 mg Q6H PRN PO SBP ABOVE 160; Start 03/27/16 at 11:30 Potassium Chloride (Klor-Con 20) 20 meq DAILY PO Last administered on 08:49; Admin Dose 20 MEQ; Start 03/27/16 at 12:00 Acetaminophen (Tylenol Tab) 650 mg Q6H PRN PO PAIN AND OR ELEVATED TEMP; Start 03/27/16 at 12:00 Docusate Sodium (Colace) 100 mg BID PO Last administered on 03/30/16 21:22; Admin Dose 100 MG; Start 03/27/16 at 12:00 Enoxaparin Sodium (Lovenox) 30 mg DAILY SC Last administered on 03/31/16 08:58 ; Admin Dose 30 MG; Start 03/27/16 at 12:30 Pantoprazole (Protonix Tab) 40 mg DAILY@06 PO Last administered on 03/31/16 05 :35; Admin Dose 40 MG; Start 03/28/16 at 06:00 Temazepam (Restoril) 15 mg HS PRN PO INSOMNIA Last administered on 03/30/16 23 :17; Admin Dose 15 MG; Start 03/28/16 at 00:30 Spironolactone (Aldactone) 25 mg DAILY PO Last administered on 03/31/16 08:50 ; Admin Dose 25 MG; Start 03/29/16 at 09:00 Methimazole (Tapazole) 30 mg DAILY PO Last administered on 03/31/16 08:50; Admin Dose 30 MG; Start 03/30/16 at 09:00 Prednisone (Prednisone) 50 mg DAILY PO Last administered on 03/31/16 08:49; Admin Dose 50 MG; Start 03/30/16 at 09:00 DAVID ALVARADO MD Mar 31, 2016 18:10
[2016-03-31] MEDS: DULOXETINE 30 MG CAP DR PO SCH (21:07)
[2016-03-31] MEDS: TEMAZEPAM 15 MG CAP PO PRN (23:15)
[2016-04-01] VITALS (11 sets, daily range): BP systolic 117–147; BP diastolic 61–73; PULSE 80; RESP 18–20
--- NOTE | 2016-04-01 04:46 | CONS ---
DATE OF ADMISSION: 03/26/2016 DATE OF CONSULTATION: Dear Dr. Hannah, Thank you for asking me to participate in the care of this 65-year-old gentleman with known history of arteriosclerotic heart disease with defibrillator status post coronary artery bypass and hyperten kuldeep. The patient has been maintained on multiple medications including carvedilol, Aspirin, Zinc o xide, lisinopril, temazepam, Dulcolax, gabapentin, amiodarone, atorvastatin, clonidine, lorazepam, a nd some other p.r.n. medications. The patient was brought to the emergency room with chief complaint of chest congestion, shortness of breath, and has been since carefully monitored and evaluated. Lab work has shown elevated BUN and creatinine which is rising. On admission 21 and 1.09 to presently 21 and 1.17, although creatinine has been as high as 1.25. Sodium is on the high side at 145. The patient has had elevated BNP with a TSH really low. MEDICATIONS: His medications have included 1. Prednisone 2. Spironolactone. 3. Vistaril. 4. Protonix. 5. Tapazole. 6. Lisinopril. 7. Gabapentin as mentioned. 8. Furosemide. 9. Lovenox. 10. Cymbalta. 11. Colace. 12. Plavix. 13. Catapres. 14. Coreg. 15. Soma. 16. Cordarone. 17. Aspirin 18. Some other p.r.n. medications. The patient has had a good urine volume throughout the hospital course and has not been exposed to a ny nephrotoxic agents. His chest x-ray has shown pulmonary edema, mild, with cardiomegaly. The [facility] has also had thyroid ultrasound which is unremarkable, and chest x-ray shows no pleural effusio n, although cardiomegaly is present with some atelectasis. REVIEW OF SYSTEMS: The patient has not had any problem with urination urgency or hesitancy. He de leon s not give me any history of prostate problem. There is no fever, chills, or chest pain at this renny e, abdominal pain, episode of urinary retention. No acute gout, joint pain, seizures, syncope, or o ther metabolic problem. PHYSICAL EXAMINATION: GENERAL: The patient is a pleasant, elderly male who appears to be in no acute distress and is lyin g comfortably in bed. VITAL SIGNS: His blood pressure has been 147/70, heart rate 80, temperature 98, respirations 20. HEAD: Unremarkable. EARS: Unremarkable. EYES: Pale conjunctivae. Sclerae are anicteric. NOSE: Normal mucosa. THROAT: Tongue is pale. NECK: Supple. JVD is not present at this time. No lymph nodes are present. CHEST WALL: Shows midline surgical scar, well healed. There is evidence of a defibrillator present on the right side. HEART: Regular rhythm, S1 unremarkable. ABDOMEN: Slightly obese, flat. No masses. GENITALIA: Unremarkable. EXTREMITIES: No cyanosis, clubbing, edema. SKIN: Pale. IMPRESSION 1. History of coronary artery disease, status post coronary artery bypass, defibrillator. 2. Hypertension with probably chronic kidney disease, nephrosclerosis. 3. Episode of congestive heart failure, resolving. 4. Anemia, mild. PLAN: This patient has multiple medical problems. Presently, he has been well stabilized, and mild azotemia may have precipitated from the use of diuretics. At this time, it does not warrant any se rious further investigation, and we will just monitor the patient's clinical course closely. I am r eluctant to discontinue diuretic, and hopefully we can discharge him soon. Dictated By: BUSTER MILES/ANN Conf#: [id number] DID#: [id number]
[2016-04-01] MEDS: PANTOPRAZOLE (EC) 40 MG TAB PO SCH (05:15)
[2016-04-01] MEDS: FUROSEMIDE 20 MG TAB PO SCH ×2 (05:16→18:18)
[2016-04-01] MEDS: GABAPENTIN 300 MG CAP PO SCH ×2 (09:09→21:02)
[2016-04-01] MEDS: METHIMAZOLE 5 MG TAB PO SCH (09:09)
[2016-04-01] MEDS: ASPIRIN 81 MG TAB PO SCH (09:13)
[2016-04-01] MEDS: predniSONE 50 MG TAB PO SCH (09:13)
[2016-04-01] MEDS: LISINOPRIL 20 MG TAB PO SCH (09:13)
[2016-04-01] MEDS: SPIRONOLACTONE 25 MG TAB PO SCH (09:13)
[2016-04-01] MEDS: DOCUSATE SODIUM 100 MG CAP PO SCH ×2 (09:13→21:00)
[2016-04-01] MEDS: CLOPIDOGREL 75 MG TAB PO SCH (09:13)
[2016-04-01] MEDS: ATORVASTATIN 20 MG TAB PO SCH (09:13)
[2016-04-01] MEDS: POTASSIUM CHLORIDE (SR) 20 MEQ TAB PO SCH (09:13)
[2016-04-01] MEDS: CARISOPRODOL 350 MG TAB PO SCH ×2 (09:13→21:03)
[2016-04-01] MEDS: ENOXAPARIN 30 MG/0.3 ML SYG SC SCH (09:24)
--- NOTE | 2016-04-01 10:41 | PN ---
DATE: 04/01/2016 CARDIOLOGY FOLLOWUP SUBJECTIVE: No new cardiac event. Patient with no chest pain or pressure. Remains in sinus rhythm , has frequent PVCs, but overall is stable. Denies palpitations to me. Shortness of breath has rem ained stable. MEDICATIONS: Reviewed. PHYSICAL EXAMINATION: VITAL SIGNS: Temperature 98.2, heart rate of 80, blood pressure 147/71, respiration rate of 20. HEENT: Normocephalic, atraumatic. Pupils are equal. Obese gentleman. CARDIOVASCULAR: Regular rate and rhythm, systolic murmur. PULMONARY: With no wheezes. GASTROINTESTINAL: Soft, nontender. EXTREMITIES: With trivial edema. NEUROLOGIC: Awake and alert. LABORATORY: Most recent one shows sodium 145, potassium 4, BUN 21, creatinine 1.17, glucose of 95. ProBNP of 5010. ASSESSMENT AND PLAN: 1. Congestive heart failure secondary to diastolic dysfunction, currently stable. 2. Coronary artery disease. 3. History of AK, history of PCI and history status post coronary bypass graft. 4. Recurrent VT, status post ICD placement. 5. Thyroid disorder with hyperthyroidism, probably related to amiodarone. 6. Dyslipidemia. 7. Diabetes. RECOMMENDATIONS: We will continue with the current cardiac care. Prednisone management and Tapazol e management as per endocrine. Discharge planning once okay from internal medicine standpoint. Dictated By: PEÑA CUBA MD AV/NTS Conf#: [id number] DID#: [id number] CC: RADHA LARKIN MD;*EndCC*
--- NOTE | 2016-04-01 15:32 | PN ---
Date/Time of Note Date/Time of Note DATE: 04/01/16 TIME: 15:31 Assessment/Plan VTE Prophylaxis VTE Prophylaxis Intervention: other Lines/Catheters IV C[facility]ter Type (from [facility] Saline Lock Urinary Cath still in place: No Assessment/Plan Chief Complaint/Hosp Course Acute decompensated congestive heart failure. Dr. Bermeo is following in cardiology consultation. Continue Aldactone and Lasix. CAD with history of CABG Hypertension. Continue Coreg and lisinopril. Dyslipidemia. Continue statin. Recurrent V. tach status post AICD placement Amiodarone induced hyperthyroidism, Dr. Aguilar is asked to see patient in endocrinology consultation, patient is started on Tapazole and prednisone. Depression. Continue Cymbalta Continue Lovenox for deep venous thrombosis prophylaxis and Protonix for peptic ulcer disease prophylaxis. Further recommendations based on clinical course. Plan of care discussed with Dr. Hu. Problems: Subjective 24 Hr Interval Summary Free Text/Dictation Patient has no complaints Exam/Review of Systems Vital Signs Vitals Vital Signs Date Time Temp Pulse Resp B/P Pulse Ox O2 Delivery O2 Flow Rate FiO2 04/01/16 12:06 80 04/01/16 12:01 97.6 18 117/61 99 03/31/16 21:00 Nasal Cannula 2.0 Intake and Output 03/31/16 03/31/16 04/01/16 15:00 23:00 07:00 Intake Total 1020 ml 1000 ml Balance 1020 ml 1000 ml Exam Head: atraumatic, normocephalic Neck: supple Respiratory: clear to auscultation Cardiovascular: regular rate and rhythm Gastrointestinal: non-tender, soft Results Result Diagram: 03/29/16 0600 03/31/16 0640 Medications Medications Current Medications Amiodarone HCl (Cordarone) 200 mg BID PO Last administered on 03/28/16 09:06; Admin Dose 200 MG; Start 03/27/16 at 11:30; Status Future Hold Aspirin (Aspirin) 81 mg DAILY PO Last administered on 04/01/16 09:13; Admin Dose 81 MG; Start 03/27/16 at 11:30 Atorvastatin Calcium (Lipitor) 20 mg DAILY PO Last administered on 04/01/16 09 :13; Admin Dose 20 MG; Start 03/28/16 at 09:00 Carisoprodol (Soma) 350 mg BID PO Last administered on 04/01/16 09:13; Admin Dose 350 MG; Start 03/27/16 at 11:30 Carvedilol (Coreg) 25 mg BID PO Last administered on 04/01/16 09:14; Admin Dose 25 MG; Start 03/27/16 at 11:30 Clopidogrel Bisulfate (plaVIX) 75 mg DAILY PO Last administered on 04/01/16 09 :13; Admin Dose 75 MG; Start 03/27/16 at 11:30 Duloxetine HCl (Cymbalta) 60 mg QHS PO Last administered on 03/31/16 21:07; Admin Dose 60 MG; Start 03/27/16 at 21:00 Gabapentin (Neurontin) 300 mg BID PO Last administered on 04/01/16 09:09; Admin Dose 300 MG; Start 03/27/16 at 11:30 Lisinopril (Zestril) 20 mg DAILY PO Last administered on 04/01/16 09:13; Admin Dose 20 MG; Start 03/27/16 at 11:30 Clonidine (Catapres) 0.1 mg Q6H PRN PO SBP ABOVE 160; Start 03/27/16 at 11:30 Potassium Chloride (Klor-Con 20) 20 meq DAILY PO Last administered on 09:13; Admin Dose 20 MEQ; Start 03/27/16 at 12:00 Acetaminophen (Tylenol Tab) 650 mg Q6H PRN PO PAIN AND OR ELEVATED TEMP; Start 03/27/16 at 12:00 Docusate Sodium (Colace) 100 mg BID PO Last administered on 04/01/16 09:13; Admin Dose 100 MG; Start 03/27/16 at 12:00 Enoxaparin Sodium (Lovenox) 30 mg DAILY SC Last administered on 04/01/16 09:24 ; Admin Dose 30 MG; Start 03/27/16 at 12:30 Pantoprazole (Protonix Tab) 40 mg DAILY@06 PO Last administered on 04/01/16 05 :15; Admin Dose 40 MG; Start 03/28/16 at 06:00 Temazepam (Restoril) 15 mg HS PRN PO INSOMNIA Last administered on 03/31/16 23 :15; Admin Dose 15 MG; Start 03/28/16 at 00:30 Spironolactone (Aldactone) 25 mg DAILY PO Last administered on 04/01/16 09:13 ; Admin Dose 25 MG; Start 03/29/16 at 09:00 Methimazole (Tapazole) 30 mg DAILY PO Last administered on 04/01/16 09:09; Admin Dose 30 MG; Start 03/30/16 at 09:00 Prednisone (Prednisone) 50 mg DAILY PO Last administered on 04/01/16 09:13; Admin Dose 50 MG; Start 03/30/16 at 09:00 KINGA SALDAÑA Apr 01, 2016 15:32
--- NOTE | 2016-04-01 16:41 | CONS ---
Date/Time of Note Date/Time of Note DATE: 04/01/16 TIME: 16:39 Assessment/Plan Assessment/Plan Problems: (1) Amiodarone-induced hyperthyroidism Status: Chronic Comment: Pt. doing well on methimazole and prednisone. No adverse effects. All consultants recommending d/c if pt. stable from med standpoint and I concur. Cont. methimazole and prednisone on d/c and f/u w/ endocrine as outpt. Consultation Date/Type/Reason Admit Date/Time Mar 26, 2016 at 21:50 Initial Consult Date 03/29/16 Type of Consultation: Endocrinology Reason for Consultation Hyperthyroidism on amiodarone Referring Provider: PEÑA CUBA MD 24 HR Interval Summary Constitutional: improved, no complaints Detailed Summary Respiratory: no complaints Cardiovascular: no complaints Gastrointestinal: no complaints Genitourinary: no complaints Musculoskeletal: no complaints Neurologic: no complaints Exam/Review of Systems Vital Signs Vitals VS - Last 72 Hours, by Label Date Time Temp Pulse Resp B/P Pulse Ox O2 Delivery O2 Flow Rate FiO2 04/01/16 16:10 80 04/01/16 15:55 97.8 80 20 125/67 99 04/01/16 12:06 80 04/01/16 12:01 97.6 81 18 117/61 99 04/01/16 08:11 80 04/01/16 07:53 98.2 80 20 147/71 97 04/01/16 04:26 80 04/01/16 03:11 97.9 79 20 139/73 99 04/01/16 00:00 80 03/31/16 23:24 98.6 80 22 170/81 100 03/31/16 21:00 Nasal Cannula 2.0 03/31/16 20:05 80 03/31/16 19:30 98.7 80 22 147/78 100 03/31/16 16:22 80 03/31/16 15:41 97.4 80 20 122/56 96 03/31/16 12:21 80 03/31/16 11:34 97.7 80 20 120/61 98 03/31/16 08:20 80 03/31/16 07:56 97.5 90 20 131/77 98 03/31/16 04:49 80 03/31/16 04:37 98.2 17 140/70 98 03/31/16 00:17 98.3 80 18 145/75 97 03/31/16 00:14 80 03/30/16 21:02 80 03/30/16 21:00 Nasal Cannula 2.0 03/30/16 20:00 98.2 83 18 143/80 98 03/30/16 16:37 80 03/30/16 15:58 98.2 83 17 115/61 95 03/30/16 12:33 80 03/30/16 11:54 97.5 80 17 133/71 95 03/30/16 08:23 79 03/30/16 08:20 98.1 78 17 161/74 94 03/30/16 04:48 80 03/30/16 04:35 98.7 80 18 142/68 96 Room Air 03/30/16 04:33 84 03/30/16 00:19 80 03/30/16 00:00 97.6 79 20 143/81 96 Room Air 03/29/16 20:42 80 03/29/16 20:31 98.5 69 17 124/72 96 03/29/16 20:05 Nasal Cannula 2.0 03/29/16 17:05 80 Vital Signs Date Time Temp Pulse Resp B/P Pulse Ox O2 Delivery O2 Flow Rate FiO2 04/01/16 16:10 80 04/01/16 15:55 97.8 20 125/67 99 03/31/16 21:00 Nasal Cannula 2.0 Intake and Output 03/31/16 03/31/16 04/01/16 15:00 23:00 07:00 Intake Total 1020 ml 1000 ml Balance 1020 ml 1000 ml Exam Constitutional: alert, obese, oriented Respiratory: clear to auscultation, normal air movement Cardiovascular: nl pulses, regular rate and rhythm, No edema, No murmurs/extra sounds, No rub Gastrointestinal: bowel sounds, nl liver, spleen, non-tender, soft, No mass, No rebound or guarding Musculoskeletal: nl extremities to inspection Extremities: normal pulses, No clubbing, No cyanosis, No edema 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: V[employer] II-XII intact, nl mental status, nl speech, nl strength Results Result Diagram: 03/29/16 0600 03/31/16 0640 Medications Medications Current Medications Amiodarone HCl (Cordarone) 200 mg BID PO Last administered on 03/28/16 09:06; Admin Dose 200 MG; Start 03/27/16 at 11:30; Status Future Hold Aspirin (Aspirin) 81 mg DAILY PO Last administered on 04/01/16 09:13; Admin Dose 81 MG; Start 03/27/16 at 11:30 Atorvastatin Calcium (Lipitor) 20 mg DAILY PO Last administered on 04/01/16 09 :13; Admin Dose 20 MG; Start 03/28/16 at 09:00 Carisoprodol (Soma) 350 mg BID PO Last administered on 04/01/16 09:13; Admin Dose 350 MG; Start 03/27/16 at 11:30 Carvedilol (Coreg) 25 mg BID PO Last administered on 04/01/16 09:14; Admin Dose 25 MG; Start 03/27/16 at 11:30 Clopidogrel Bisulfate (plaVIX) 75 mg DAILY PO Last administered on 04/01/16 09 :13; Admin Dose 75 MG; Start 03/27/16 at 11:30 Duloxetine HCl (Cymbalta) 60 mg QHS PO Last administered on 03/31/16 21:07; Admin Dose 60 MG; Start 03/27/16 at 21:00 Gabapentin (Neurontin) 300 mg BID PO Last administered on 04/01/16 09:09; Admin Dose 300 MG; Start 03/27/16 at 11:30 Lisinopril (Zestril) 20 mg DAILY PO Last administered on 04/01/16 09:13; Admin Dose 20 MG; Start 03/27/16 at 11:30 Clonidine (Catapres) 0.1 mg Q6H PRN PO SBP ABOVE 160; Start 03/27/16 at 11:30 Potassium Chloride (Klor-Con 20) 20 meq DAILY PO Last administered on 09:13; Admin Dose 20 MEQ; Start 03/27/16 at 12:00 Acetaminophen (Tylenol Tab) 650 mg Q6H PRN PO PAIN AND OR ELEVATED TEMP; Start 03/27/16 at 12:00 Docusate Sodium (Colace) 100 mg BID PO Last administered on 04/01/16 09:13; Admin Dose 100 MG; Start 03/27/16 at 12:00 Enoxaparin Sodium (Lovenox) 30 mg DAILY SC Last administered on 04/01/16 09:24 ; Admin Dose 30 MG; Start 03/27/16 at 12:30 Pantoprazole (Protonix Tab) 40 mg DAILY@06 PO Last administered on 04/01/16 05 :15; Admin Dose 40 MG; Start 03/28/16 at 06:00 Temazepam (Restoril) 15 mg HS PRN PO INSOMNIA Last administered on 03/31/16 23 :15; Admin Dose 15 MG; Start 03/28/16 at 00:30 Spironolactone (Aldactone) 25 mg DAILY PO Last administered on 04/01/16 09:13 ; Admin Dose 25 MG; Start 03/29/16 at 09:00 Methimazole (Tapazole) 30 mg DAILY PO Last administered on 04/01/16 09:09; Admin Dose 30 MG; Start 03/30/16 at 09:00 Prednisone (Prednisone) 50 mg DAILY PO Last administered on 04/01/16 09:13; Admin Dose 50 MG; Start 03/30/16 at 09:00 DAVID ALVARADO MD Apr 01, 2016 16:41
[2016-04-01] MEDS: DULOXETINE 30 MG CAP DR PO SCH (21:02)
[2016-04-01] MEDS: TEMAZEPAM 15 MG CAP PO PRN (23:18)
[2016-04-02] VITALS (9 sets, daily range): BP systolic 115–155; BP diastolic 58–81; PULSE 80–81; RESP 17–20
[2016-04-02] MEDS: PANTOPRAZOLE (EC) 40 MG TAB PO SCH (06:33)
[2016-04-02] MEDS: FUROSEMIDE 20 MG TAB PO SCH ×2 (06:33→18:28)
[2016-04-02] MEDS ORDERED: BENAZEPRIL 10 MG TAB PO ONE (08:00)
[2016-04-02] MEDS: DOCUSATE SODIUM 100 MG CAP PO SCH (09:00)
[2016-04-02] MEDS: ASPIRIN 81 MG TAB PO SCH (09:46)
[2016-04-02] MEDS: predniSONE 50 MG TAB PO SCH (09:46)
[2016-04-02] MEDS: LISINOPRIL 20 MG TAB PO SCH (09:47)
[2016-04-02] MEDS: METHIMAZOLE 5 MG TAB PO SCH (09:47)
[2016-04-02] MEDS: POTASSIUM CHLORIDE (SR) 20 MEQ TAB PO SCH (09:47)
[2016-04-02] MEDS: ATORVASTATIN 20 MG TAB PO SCH (09:48)
[2016-04-02] MEDS: SPIRONOLACTONE 25 MG TAB PO SCH (09:49)
[2016-04-02] MEDS: CARISOPRODOL 350 MG TAB PO SCH (09:49)
[2016-04-02] MEDS: GABAPENTIN 300 MG CAP PO SCH (09:49)
[2016-04-02] MEDS: CLOPIDOGREL 75 MG TAB PO SCH (09:49)
[2016-04-02] MEDS: ENOXAPARIN 30 MG/0.3 ML SYG SC SCH (09:56)
--- NOTE | 2016-04-02 10:24 | CONS ---
Date/Time of Note Date/Time of Note DATE: 04/02/16 TIME: 10:23 Assessment/Plan Assessment/Plan Problems: (1) HTN (hypertension) Status: Acute Comment: Stable and control, this patient is ready for discharge Qualifiers: Hypertension type: essential hypertension Qualified Code: I10 - Essential hypertension (2) Amiodarone-induced hyperthyroidism Status: Chronic Comment: Coming under control nicely with medications. This patient is ready for discharge (3) CHF exacerbation Status: Resolved Comment: Controlled this patient is ready for discharge Qualifiers: Congestive heart failure type: unspecified congestive heart failure type Qualified Code: I50.9 - Acute on chronic congestive heart failure, unspecified congestive heart failure type Additional Assessment/Plan Patient has improved and is ready for discharge with outpatient follow-up Consultation Date/Type/Reason Admit Date/Time Mar 26, 2016 at 21:50 Initial Consult Date 03/29/16 Type of Consultation: Endocrinology Reason for Consultation Amiodarone induced hyperthyroidism Referring Provider: PEÑA CUBA MD Exam/Review of Systems Vital Signs Vitals Vital Signs Date Time Temp Pulse Resp B/P Pulse Ox O2 Delivery O2 Flow Rate FiO2 04/02/16 08:05 80 04/02/16 07:30 98.1 17 155/70 99 03/31/16 21:00 Nasal Cannula 2.0 Intake and Output 04/01/16 04/01/16 04/02/16 15:00 23:00 07:00 Intake Total 2040 ml Balance 2040 ml Exam Constitutional: alert, oriented Respiratory: clear to auscultation, normal air movement Results Result Diagram: 03/29/16 0600 03/31/16 0640 Medications Medications Current Medications Amiodarone HCl (Cordarone) 200 mg BID PO Last administered on 03/28/16 09:06; Admin Dose 200 MG; Start 03/27/16 at 11:30; Status Future Hold Aspirin (Aspirin) 81 mg DAILY PO Last administered on 04/02/16 09:46; Admin Dose 81 MG; Start 03/27/16 at 11:30 Atorvastatin Calcium (Lipitor) 20 mg DAILY PO Last administered on 04/02/16 09 :48; Admin Dose 20 MG; Start 03/28/16 at 09:00 Carisoprodol (Soma) 350 mg BID PO Last administered on 04/02/16 09:49; Admin Dose 350 MG; Start 03/27/16 at 11:30 Carvedilol (Coreg) 25 mg BID PO Last administered on 04/02/16 09:48; Admin Dose 25 MG; Start 03/27/16 at 11:30 Clopidogrel Bisulfate (plaVIX) 75 mg DAILY PO Last administered on 04/02/16 09 :49; Admin Dose 75 MG; Start 03/27/16 at 11:30 Duloxetine HCl (Cymbalta) 60 mg QHS PO Last administered on 04/01/16 21:02; Admin Dose 60 MG; Start 03/27/16 at 21:00 Gabapentin (Neurontin) 300 mg BID PO Last administered on 04/02/16 09:49; Admin Dose 300 MG; Start 03/27/16 at 11:30 Lisinopril (Zestril) 20 mg DAILY PO Last administered on 04/02/16 09:47; Admin Dose 20 MG; Start 03/27/16 at 11:30 Clonidine (Catapres) 0.1 mg Q6H PRN PO SBP ABOVE 160; Start 03/27/16 at 11:30 Potassium Chloride (Klor-Con 20) 20 meq DAILY PO Last administered on 09:47; Admin Dose 20 MEQ; Start 03/27/16 at 12:00 Acetaminophen (Tylenol Tab) 650 mg Q6H PRN PO PAIN AND OR ELEVATED TEMP; Start 03/27/16 at 12:00 Docusate Sodium (Colace) 100 mg BID PO Last administered on 04/01/16 09:13; Admin Dose 100 MG; Start 03/27/16 at 12:00 Enoxaparin Sodium (Lovenox) 30 mg DAILY SC Last administered on 04/02/16 09:56 ; Admin Dose 30 MG; Start 03/27/16 at 12:30 Pantoprazole (Protonix Tab) 40 mg DAILY@06 PO Last administered on 04/02/16 06 :33; Admin Dose 40 MG; Start 03/28/16 at 06:00 Temazepam (Restoril) 15 mg HS PRN PO INSOMNIA Last administered on 04/01/16 23 :18; Admin Dose 15 MG; Start 03/28/16 at 00:30 Spironolactone (Aldactone) 25 mg DAILY PO Last administered on 04/02/16 09:49 ; Admin Dose 25 MG; Start 03/29/16 at 09:00 Methimazole (Tapazole) 30 mg DAILY PO Last administered on 04/02/16 09:47; Admin Dose 30 MG; Start 03/30/16 at 09:00 Prednisone (Prednisone) 50 mg DAILY PO Last administered on 04/02/16 09:46; Admin Dose 50 MG; Start 03/30/16 at 09:00 NOLVIA WINN MD Apr 02, 2016 10:24
--- NOTE | 2016-04-02 11:54 | PN ---
Date/Time of Note Date/Time of Note DATE: 04/02/16 TIME: 11:54 Assessment/Plan VTE Prophylaxis VTE Prophylaxis Intervention: other Lines/Catheters IV C[facility] Type [facility]from [facility] Saline Lock Urinary Cath still in place: No Assessment/Plan Chief Complaint/Hosp Course Acute decompensated congestive heart failure. Dr. Bermeo is following in cardiology consultation. Continue Aldactone and Lasix. CAD with history of CABG Hypertension. Continue Coreg and lisinopril. Dyslipidemia. Continue statin. Recurrent V. tach status post AICD placement Amiodarone induced hyperthyroidism, Dr. Aguilar is asked to see patient in endocrinology consultation, patient is started on Tapazole and prednisone. Depression. Continue Cymbalta Continue Lovenox for deep venous thrombosis prophylaxis and Protonix for peptic ulcer disease prophylaxis. Further recommendations based on clinical course. Plan of care discussed with Dr. Hu. Problems: Subjective 24 Hr Interval Summary Free Text/Dictation Patient has no complaints Exam/Review of Systems Vital Signs Vitals Vital Signs Date Time Temp Pulse Resp B/P Pulse Ox O2 Delivery O2 Flow Rate FiO2 04/02/16 08:05 80 04/02/16 07:30 98.1 155/70 99 03/31/16 21:00 Nasal Cannula 2.0 Intake and Output 04/01/16 04/01/16 04/02/16 15:00 23:00 07:00 Intake Total 2040 ml Balance 2040 ml Exam Constitutional: well developed Head: atraumatic, normocephalic Neck: supple Respiratory: diminished breath sounds Cardiovascular: regular rate and rhythm Gastrointestinal: non-tender, soft Extremities: normal pulses Results Result Diagram: 03/29/16 0600 03/31/16 0640 Medications Medications Current Medications Amiodarone HCl (Cordarone) 200 mg BID PO Last administered on 03/28/16 09:06; Admin Dose 200 MG; Start 03/27/16 at 11:30; Status Future Hold Aspirin (Aspirin) 81 mg DAILY PO Last administered on 04/02/16 09:46; Admin Dose 81 MG; Start 03/27/16 at 11:30 Atorvastatin Calcium (Lipitor) 20 mg DAILY PO Last administered on 04/02/16 09 :48; Admin Dose 20 MG; Start 03/28/16 at 09:00 Carisoprodol (Soma) 350 mg BID PO Last administered on 04/02/16 09:49; Admin Dose 350 MG; Start 03/27/16 at 11:30 Carvedilol (Coreg) 25 mg BID PO Last administered on 04/02/16 09:48; Admin Dose 25 MG; Start 03/27/16 at 11:30 Clopidogrel Bisulfate (plaVIX) 75 mg DAILY PO Last administered on 04/02/16 09 :49; Admin Dose 75 MG; Start 03/27/16 at 11:30 Duloxetine HCl (Cymbalta) 60 mg QHS PO Last administered on 04/01/16 21:02; Admin Dose 60 MG; Start 03/27/16 at 21:00 Gabapentin (Neurontin) 300 mg BID PO Last administered on 04/02/16 09:49; Admin Dose 300 MG; Start 03/27/16 at 11:30 Lisinopril (Zestril) 20 mg DAILY PO Last administered on 04/02/16 09:47; Admin Dose 20 MG; Start 03/27/16 at 11:30 Clonidine (Catapres) 0.1 mg Q6H PRN PO SBP ABOVE 160; Start 03/27/16 at 11:30 Potassium Chloride (Klor-Con 20) 20 meq DAILY PO Last administered on 09:47; Admin Dose 20 MEQ; Start 03/27/16 at 12:00 Acetaminophen (Tylenol Tab) 650 mg Q6H PRN PO PAIN AND OR ELEVATED TEMP; Start 03/27/16 at 12:00 Docusate Sodium (Colace) 100 mg BID PO Last administered on 04/01/16 09:13; Admin Dose 100 MG; Start 03/27/16 at 12:00 Enoxaparin Sodium (Lovenox) 30 mg DAILY SC Last administered on 04/02/16 09:56 ; Admin Dose 30 MG; Start 03/27/16 at 12:30 Pantoprazole (Protonix Tab) 40 mg DAILY@06 PO Last administered on 04/02/16 06 :33; Admin Dose 40 MG; Start 03/28/16 at 06:00 Temazepam (Restoril) 15 mg HS PRN PO INSOMNIA Last administered on 04/01/16 23 :18; Admin Dose 15 MG; Start 03/28/16 at 00:30 Spironolactone (Aldactone) 25 mg DAILY PO Last administered on 04/02/16 09:49 ; Admin Dose 25 MG; Start 03/29/16 at 09:00 Methimazole (Tapazole) 30 mg DAILY PO Last administered on 04/02/16 09:47; Admin Dose 30 MG; Start 03/30/16 at 09:00 Prednisone (Prednisone) 50 mg DAILY PO Last administered on 04/02/16 09:46; Admin Dose 50 MG; Start 03/30/16 at 09:00 KINGA SALDAÑA Apr 02, 2016 11:54
[2016-04-02 12:41] LABS: EOSINOPHILS # 0.1 10^3/ul (0.0-0.5); EOSINOPHILS % 0.5 % (0.0-7.0); HEMATOCRIT 37.4 % (42.0-52.0); HEMOGLOBIN 12.1 g/dl (14.0-18.0); LYMPHOCYTES # 1.3 10^3/ul (0.8-2.9); LYMPHOCYTES % 9.6 % (15.0-51.0); MEAN CORPUSCULAR HEMOGLOBIN 29.1 pg (29.0-33.0); MEAN CORPUSCULAR HGB CONC 32.5 g/dl (32.0-37.0); MEAN CORPUSCULAR VOLUME 89.5 fl (82.0-101.0); MEAN PLATELET VOLUME 8.9 fl (7.4-10.4); MONOCYTE # 0.7 10^3/ul (0.3-0.9); MONOCYTES % 5.4 % (0.0-11.0); NEUTROPHIL # 11.5 10^3/ul (1.6-7.5); NEUTROPHILS % 84.5 % (39.0-77.0); PLATELET COUNT 403 10^3/UL (140-440); RED BLOOD COUNT 4.18 10^6/ul (4.70-6.10); UNCORRECTED WBC 13.6 10^3/ul (4.8-10.8); WHITE BLOOD COUNT 13.6 10^3/ul (4.8-10.8)
[2016-04-02 12:44] LABS: CONDITION 1; LH ANALYZER COMMENTS 1; RED CELL DISTRIBUTION WIDTH 13.9 % (11.5-14.5); SUSPECT 1
[2016-04-02 12:47] LABS: POTASSIUM 4.5 mmol/L (3.5-5.1)
[2016-04-02 12:49] LABS: CREATININE 1.3 mg/dl (0.61-1.24)
--- NOTE | 2016-04-02 13:35 | DS ---
Date/Time of Note Date/Time of Note DATE: 04/02/16 TIME: 13:34 Discharge Summary Admission/Discharge Info Admit Date/Time Mar 26, 2016 at 21:50 Discharge Date/Time 04/02/16 Final Diagnosis 1) CHF 2) hypertension 3) hypercholesterolemia Hx of Present Illness sob, speaking in full sentences HPI 65-year-old man with history multiple medical problems including CAD status post bypass, history of V. tach status post permanent defibrillator, hypertension presents with progressive dyspnea on exertion over the last 3 days. Patient reports increasing dyspnea with exertion over the last 3 days that has now developed dyspnea at rest. He denies any chest pain or associated nausea, vomiting, diaphoresis. Reports that he has been having trouble sleeping due to his shortness of breath and sleeps almost sitting up. Denies any bilateral lower extremity edema. Patient reports that he is normally on oxygen at home but does not know why he is taking it. Denies having a history of COPD or being a smoker. He reports a mild nonproductive cough but no fevers or chills. Has never had this dyspnea before. ROS All systems reviewed and are negative except as per history of present illness. Medications Home Meds Active Scripts Carvedilol* (Coreg*) 25 Mg Tab, 25 MG PO BID for 30 Days, TAB Prov:JOSE VELASQUEZ 07/15/15 Aspirin (Aspirin) 81 Mg Chew, 81 MG PO DAILY for 30 Days Prov:LINDA ARDON 12/22/14 Reported Medications Zinc Oxide/Petrolatum,White (Remedy Phytoplex Z-Guard Paste) 113 Gm Paste..g., 113 GM TP DAILY 03/26/16 Lisinopril* (Lisinopril*) 20 Mg Tablet, 20 MG PO DAILY, #30 TAB 03/26/16 Temazepam* (Temazepam*) 15 Mg Capsule, 15 MG PO HS Y for INSOMNIA, CAP 03/26/16 Duloxetine Hcl* (Duloxetine Hcl*) 60 Mg Capsule.dr, 60 MG PO QHS, #30 CAP 03/26/16 Gabapentin* (Gabapentin*) 300 Mg Capsule, 300 MG PO BID, #60 CAP 03/26/16 Carisoprodol* (Carisoprodol*) 350 Mg Tablet, 350 MG PO BID, TAB 06/12/15 Amiodarone Hcl* (Amiodarone Hcl*) 200 Mg Tablet, 200 MG PO BID, TAB 06/12/15 Clopidogrel Bisulfate (Clopidogrel) 75 Mg Tablet, 75 MG PO DAILY, #30 TAB 02/17/15 Atorvastatin Calcium* (Atorvastatin Calcium*) 20 Mg Tablet, 20 MG PO DAILY, TAB 01/06/15 Clonidine Hcl (KAPVAY) 0.1 Mg Tab.er.12h, 0.1 MG PO BID Y for ELEVATED BLOOD PRESSURE GIVE IF BLOOD PRESSURE IS 150/90 11/12/12 Discontinued Reported Medications Mu-Vits-Min Th/Lycopene/Lutein (CENTRUM SILVER TABLET) 1 Each Tablet, 1 EACH PO DAILY, TAB 06/12/15 Lorazepam* (Lorazepam*) 1 Mg Tablet, 1 MG PO HS Y for AGITATION/ANXIETY, TAB 06/12/15 Gabapentin* (Gabapentin*) 100 Mg Capsule, 100 MG PO QHS, CAP 06/12/15 Discontinued Scripts Lisinopril* (Lisinopril*) 10 Mg Tablet, 10 MG PO DAILY for 30 Days, TAB Prov:THOMAS DYER 09/01/15 Triamcinolone Acetonide* (Kenalog*) 0.1%-15GM Cr, 1 APPLIC TOP BID for 7 Days Prov:THOMAS DYER 09/01/15 Spironolactone* (Aldactone*) 25 Mg Tab, 25 MG PO DAILY for 30 Days, TAB Prov:JOSE VELASQUEZ 07/15/15 Nitroglycerin* (Nitrostat*) 25 Tab Subl, 0.4 MG SL Q5M Y for CHEST PAIN, #30 Prov:LINDA ARDON 12/22/14 Allergies Allergies: Coded Allergies: No Known Allergy (Unverified , 03/26/16) Hospital Course Acute decompensated congestive heart failure. Dr. Bermeo is following in cardiology consultation. Continue Aldactone and Lasix. Once stabilized per consultants, patient was sent home. CAD with history of CABG Hypertension. Continue Coreg and lisinopril. Dyslipidemia. Continue statin. Recurrent V. tach status post AICD placement Amiodarone induced hyperthyroidism, Dr. Aguilar is asked to see patient in endocrinology consultation, patient is started on Tapazole and prednisone. Depression. Continue Cymbalta Continue Lovenox for deep venous thrombosis prophylaxis and Protonix for peptic ulcer disease prophylaxis. Further recommendations based on clinical course. Plan of care discussed with Dr. Hu. Home Meds Active Scripts Carvedilol* (Coreg*) 25 Mg Tab, 25 MG PO BID for 30 Days, TAB Prov:BEN VELASQUEZA 07/15/15 Aspirin (Aspirin) 81 Mg Chew, 81 MG PO DAILY for 30 Days Prov:REVALINDA 12/22/14 Reported Medications Zinc Oxide/Petrolatum,White (Remedy Phytoplex Z-Guard Paste) 113 Gm Paste..g., 113 GM TP DAILY 03/26/16 Lisinopril* (Lisinopril*) 20 Mg Tablet, 20 MG PO DAILY, #30 TAB 03/26/16 Temazepam* (Temazepam*) 15 Mg Capsule, 15 MG PO HS Y for INSOMNIA, CAP 03/26/16 Duloxetine Hcl* (Duloxetine Hcl*) 60 Mg Capsule.dr, 60 MG PO QHS, #30 CAP 03/26/16 Gabapentin* (Gabapentin*) 300 Mg Capsule, 300 MG PO BID, #60 CAP 03/26/16 Carisoprodol* (Carisoprodol*) 350 Mg Tablet, 350 MG PO BID, TAB 06/12/15 Amiodarone Hcl* (Amiodarone Hcl*) 200 Mg Tablet, 200 MG PO BID, TAB 06/12/15 Clopidogrel Bisulfate (Clopidogrel) 75 Mg Tablet, 75 MG PO DAILY, #30 TAB 02/17/15 Atorvastatin Calcium* (Atorvastatin Calcium*) 20 Mg Tablet, 20 MG PO DAILY, TAB 01/06/15 Clonidine Hcl (KAPVAY) 0.1 Mg Tab.er.12h, 0.1 MG PO BID Y for ELEVATED BLOOD PRESSURE GIVE IF BLOOD PRESSURE IS 150/90 11/12/12 Discontinued Reported Medications Mu-Vits-Min Th/Lycopene/Lutein (CENTRUM SILVER TABLET) 1 Each Tablet, 1 EACH PO DAILY, TAB 06/12/15 Lorazepam* (Lorazepam*) 1 Mg Tablet, 1 MG PO HS Y for AGITATION/ANXIETY, TAB 06/12/15 Gabapentin* (Gabapentin*) 100 Mg Capsule, 100 MG PO QHS, CAP 06/12/15 Discontinued Scripts Lisinopril* (Lisinopril*) 10 Mg Tablet, 10 MG PO DAILY for 30 Days, TAB Prov:THOMAS DYER 09/01/15 Triamcinolone Acetonide* (Kenalog*) 0.1%-15GM Cr, 1 APPLIC TOP BID for 7 Days Prov:THOMAS DYER 09/01/15 Spironolactone* (Aldactone*) 25 Mg Tab, 25 MG PO DAILY for 30 Days, TAB Prov:JOSE VELASQUEZ 07/15/15 Nitroglycerin* (Nitrostat*) 25 Tab Subl, 0.4 MG SL Q5M Y for CHEST PAIN, #30 Prov:LINDA ARDON 12/22/14 Pending Labs Laboratory Tests Test 04/02/16 12:30 Anion Gap 16 (8-16) B-Type Natriuretic Peptide 2050PG/ML (0-125) Basophils # 0.010^3/ul (0.0-0.1) Basophils % 0.0% (0.0-2.0) Blood Urea Nitrogen 33mg/dl (7-20) Calcium Level 9.0mg/dl (8.4-10.2) Carbon Dioxide Level 29mmol/L (21-31) Chloride Level 103mmol/L (97-110) Creatinine 1.30mg/dl (0.61-1.24) Eosinophils # 0.110^3/ul (0.0-0.5) Eosinophils % 0.5% (0.0-7.0) Glucose Level 142mg/dl (70-220) Hematocrit 37.4% (42.0-52.0) Hemoglobin 12.1g/dl (14.0-18.0) Lymphocytes # 1.310^3/ul (0.8-2.9) Lymphocytes % 9.6% (15.0-51.0) Mean Corpuscular Hemoglobin 29.1pg (29.0-33.0) Mean Corpuscular Hemoglobin Concent 32.5g/dl (32.0-37.0) Mean Corpuscular Volume 89.5fl (82.0-101.0) Mean Platelet Volume 8.9fl (7.4-10.4) Monocytes # 0.710^3/ul (0.3-0.9) Monocytes % 5.4% (0.0-11.0) Neutrophils # 11.510^3/ul (1.6-7.5) Neutrophils % 84.5% (39.0-77.0) Nucleated Red Blood Cells # 0.010^3/ul (0.0-0.0) Nucleated Red Blood Cells % 0.0/100WBC (0.0-0.0) Platelet Count 45391^3/UL (140-440) Potassium Level 4.5mmol/L (3.5-5.1) Red Blood Count 4.1810^6/ul (4.70-6.10) Red Cell Distribution Width 13.9% (11.5-14.5) Sodium Level 143mmol/L (135-144) White Blood Count 13.610^3/ul (4.8-10.8) KINGA SALDAÑA Apr 02, 2016 13:35
--- NOTE | 2016-04-02 20:48 | RADRPT ---
PROCEDURE: XR Chest. CLINICAL INDICATION: Congestive heart failure. TECHNIQUE: Single frontal view of the chest was obtained COMPARISON: None FINDINGS: Left anterior chest wall dual chamber cardiac pacer with lead tips over expected locations of right atrium right ventricle. Cardiac pacing leads appear intact. Degree of cardiomegaly. The lungs are clear. There is no pleural effusion or pneumothorax. IMPRESSION: No acute disease. RPTAT: [facility] Physician Pelon Date Time Electronically viewed and signed by Physician Pelon on 04/02/2016 20:48 RS/
--- NOTE | 2016-04-05 08:26 | PN ---
DATE: 04/02/2016 CARDIOLOGY FOLLOWUP SUBJECTIVE: Discussed with the staff. Rhythm strip reviewed. The patient wants to go home now. F eels much better. No chest pain or pressure. No palpitation. MEDICATIONS: Reviewed. PHYSICAL EXAMINATION: VITAL SIGNS: Temperature 98.1, heart rate of 80, blood pressure 134/63, respiration rate of 19. HEENT: Normocephalic, atraumatic. Pupils are equal. CARDIOVASCULAR: Regular rate and rhythm. PULMONARY: No wheezes. GASTROINTESTINAL: Soft. EXTREMITIES: Trivial edema. NEUROLOGIC: Awake, . ASSESSMENT AND PLAN: 1. Congestive heart failure. 2. Ventricular tachycardia. 3. Thyroid disorder. 4. Coronary artery disease. 5. Hypertension. RECOMMENDATIONS: We will continue with the current cardiac care. Discharge planning is in process. Dictated By: PEÑA BELLO/ANN Conf#: [id number] DID#: [id number]
== END 2016-04-02 19:10 | disposition home or self-care (01) | DRG 291 ==
LOC: E/R 17:39 → MS4 21:50
PROVIDERS: ADMIT Internal Medicine; ATTEND Internal Medicine
DX: I13.0 Hypertensive heart and chronic kidney disease with heart failure and stage 1 through stage 4 chronic kidney disease, or unspecified chronic kidney disease (principal); I50.43 Acute on chronic combined systolic (congestive) and diastolic (congestive) heart failure; Z95.1 Presence of aortocoronary bypass graft; F32.9 Major depressive disorder, single episode, unspecified; J98.11 Atelectasis; E05.80 Other thyrotoxicosis without thyrotoxic crisis or storm; I25.10 Atherosclerotic heart disease of native coronary artery without angina pectoris; Z95.810 Presence of automatic (implantable) cardiac defibrillator; E78.5 Hyperlipidemia, unspecified; G89.4 Chronic pain syndrome; I25.2 Old myocardial infarction; I44.0 Atrioventricular block, first degree; I49.3 Ventricular premature depolarization; T46.2X5A Adverse effect of other antidysrhythmic drugs, initial encounter; N18.9 Chronic kidney disease, unspecified
CPT/HCPCS: 36415; 71010; 76536; 80048; 80053; 82550; 82553; 83036; 83735; 83880; 84100; 84436; 84439; 84443; 84479; 84480; 84484; 85025; 85610; 85730; 86376; 86800; 87081; 93005; 93306; 96374; J1940; J1650; J3475; J7512

== ENCOUNTER 2016-04-16 01:36 | Inpatient (IN) | payer MEDICARE, BC ==
[~2016-04-16] VITALS: Ht 175.3 cm; Wt 103.8 kg
[~2016-04-16 01:36] MED LIST changes: +DULO60CA59 PO; -GABA100C14 PO; +GABA300C16 PO; -KENC1 TOP; -LISI10TA2 PO; +LISI20TA11 PO; -LORA1TAB PO; -MULT-860 PO; -NIT4 SL; -SPIR25TA PO; +TEMA15CA PO; +[UNRECOGNIZED DRUG - CODE] TP
[2016-04-16] MEDS ORDERED: ACETAMINOPHEN 325 MG TAB PO ONE (05:00)
--- NOTE | 2016-04-16 05:20 | ERA ---
ER Documentation Chief Complaint Date/Time DATE: 04/16/16 TIME: 05:16 Chief Complaint shortness of breath x 1 week, hx-chf HPI The patient is a 65-year-old male, presenting to the ER because of worsening dyspnea 4 days, orthopnea, paroxysmal nocturnal dyspnea. He had similar symptoms previously from CHF. He has fever today, denies cough, neck pain, chest pain, palpitation, diaphoresis, abdominal pain, vomiting, dysuria, diarrhea. He does not smoke nor drink Past medical history: CAD, history of CHF, hypertension, dyslipidemia Past surgical history: CABG, AICD ROS All systems reviewed and are negative except as per history of present illness. Medications Home Meds Active Scripts Carvedilol* (Coreg*) 25 Mg Tab, 25 MG PO BID for 30 Days, TAB Prov:JOSE VELASQUEZ 07/15/15 Aspirin (Aspirin) 81 Mg Chew, 81 MG PO DAILY for 30 Days Prov:LINDA ARDON 12/22/14 Reported Medications Zinc Oxide/Petrolatum,White (Remedy Phytoplex Z-Guard Paste) 113 Gm Paste..g., 113 GM TP DAILY 03/26/16 Lisinopril* (Lisinopril*) 20 Mg Tablet, 20 MG PO DAILY, #30 TAB 03/26/16 Temazepam* (Temazepam*) 15 Mg Capsule, 15 MG PO HS Y for INSOMNIA, CAP 03/26/16 Duloxetine Hcl* (Duloxetine Hcl*) 60 Mg Capsule.dr, 60 MG PO QHS, #30 CAP 03/26/16 Gabapentin* (Gabapentin*) 300 Mg Capsule, 300 MG PO BID, #60 CAP 03/26/16 Carisoprodol* (Carisoprodol*) 350 Mg Tablet, 350 MG PO BID, TAB 06/12/15 Amiodarone Hcl* (Amiodarone Hcl*) 200 Mg Tablet, 200 MG PO BID, TAB 06/12/15 Clopidogrel Bisulfate (Clopidogrel) 75 Mg Tablet, 75 MG PO DAILY, #30 TAB 02/17/15 Atorvastatin Calcium* (Atorvastatin Calcium*) 20 Mg Tablet, 20 MG PO DAILY, TAB 01/06/15 Clonidine Hcl (KAPVAY) 0.1 Mg Tab.er.12h, 0.1 MG PO BID Y for ELEVATED BLOOD PRESSURE GIVE IF BLOOD PRESSURE IS 150/90 11/12/12 Allergies Allergies: Coded Allergies: No Known Allergy (Unverified , 04/16/16) PMhx/Soc History of Surgery: Yes (1997 back surgery, bypass surgery 2003, fractured ribs 2016) Anesthesia Reaction: No Hx 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 Disorder: No Hx Respiratory Disorders: No Hx Cardiac Disorders: Yes Hx Psychiatric Problems: No Hx Miscellaneous Medical Probl: No Hx Alcohol Use: Yes (occasionally) Hx Substance Use: No Hx Tobacco Use: No Smoking Status: Unknown if ever smoked Physical Exam Vitals Vital Signs Date Time Temp Pulse Resp B/P Pulse Ox O2 Delivery O2 Flow Rate FiO2 04/16/16 01:42 102.0 83 20 138/63 95 Physical Exam Const: No acute distress. Head: Atraumatic. Eyes: Normal Conjunctiva. ENT: Normal External Ears, Nose and Mouth. Neck: Full range of motion. No meningismus. Resp: Bibasilar crackles Cardio: Regular rate and rhythm, no murmurs. Abd: Soft, non distended, normal bowel sounds, non tender. Skin: No petechiae or rashes. Back: No midline or flank tenderness. Ext: No cyanosis, or edema. Neur: Awake and alert. No focal deficit Psych: Normal Mood and Affect. Result Diagram: 04/17/16 0600 04/19/16 0730 Results 24 hrs Laboratory Tests Test 04/16/16 04:40 Activated Partial Thromboplast Time 30.3Sec Alanine Aminotransferase (ALT/SGPT) 50IU/L Albumin 2.5g/dl Albumin/Globulin Ratio 1.00 Alkaline Phosphatase 105IU/L Anion Gap 12 Aspartate Amino Transf (AST/SGOT) 29IU/L B-Type Natriuretic Peptide 7570PG/ML Basophils # 0.010^3/ul Basophils % 0.2% Blood Urea Nitrogen 23mg/dl Calcium Level 7.6mg/dl Carbon Dioxide Level 25mmol/L Chloride Level 106mmol/L Creatinine 1.33mg/dl Direct Bilirubin 0.00mg/dl Eosinophils # 0.210^3/ul Eosinophils % 1.6% Globulin 2.50g/dl Glucose Level 180mg/dl Hematocrit 35.0% Hemoglobin 10.7g/dl INR International Normalized Ratio 1.16 Indirect Bilirubin 0.3mg/dl Lactic Acid Level 2.7mmol/L Lymphocytes # 1.310^3/ul Lymphocytes % 11.6% Mean Corpuscular Hemoglobin 28.8pg Mean Corpuscular Hemoglobin Concent 30.6g/dl Mean Corpuscular Volume 94.1fl Mean Platelet Volume 11.1fl Monocytes # 0.910^3/ul Monocytes % 8.0% Neutrophils # 9.010^3/ul Neutrophils % 77.9% Nucleated Red Blood Cells # 0.010^3/ul Nucleated Red Blood Cells % 0.0/100WBC Platelet Count 98730^3/UL Potassium Level 3.8mmol/L Prothrombin Time 14.8Sec Prothrombin Time Ratio 1.2 Red Blood Count 3.7210^6/ul Red Cell Distribution Width 14.0% Sodium Level 139mmol/L Total Bilirubin 0.3mg/dl Total Protein 5.0g/dl Troponin I 0.063ng/ml White Blood Count 11.610^3/ul Current Medications Medications (Trade) Dose Ordered Sig/Juancarlos Route PRN Reason Start Time Stop Time Status Last Admin Dose Admin Acetaminophen (Tylenol Tab) 650 mg ONCE ONCE PO 04/16/16 05:00 04/16/16 05:01 DC 04/16/16 06:06 Furosemide (Lasix) 40 mg ONCE ONCE IV 04/16/16 06:00 04/16/16 06:01 DC 04/16/16 06:07 Procedures/[place] [id number] Radiology Main Line: [phone] DIAGNOSTIC IMAGING REPORT Patient: DAVID ESPINO : 1950 Age: 65 Sex: M [id number] DOS: 04/16/16 0446 Ordering MD: DAVID POLO MD Location: E/R Room/Bed: PROCEDURE: Chest. CLINICAL INDICATION: Chest pain. TECHNIQUE: Single frontal view of the chest was obtained. COMPARISON: 04/02/2016. FINDINGS: Mediasternotomy wires are present. There is a left-sided AICD. The cardiac silhouette is enlarged. The aortic arch is unremarkable. There is no focal consolidation, vascular congestion or pleural effusion. There is no pneumothorax. IMPRESSION: Mild cardiomegaly. .Raymon Matute MD, MD Date Time Electronically viewed and signed by .Raymon Matute MD, MD on 04/16/2016 06:47 .T/ CC: DAVID POLO MD MEDICAL MAKING DECISION: The patient is a 75-year-old male, presenting with acute CHF exacerbation, acute febrile illness of unclear etiology. He was treated with Tylenol 750 mg p.o. for fever with good response. The differential diagnoses considered include but are not limited to asthma, COPD, pneumonia, pulmonary embolus, pleural effusion, congestive heart failure, viral syndrome, influenza. Lactic acid level is pending at the time of dictation. I do not suspect pneumonia nor UTI in the patient. Portable chest x-ray is negative for pneumonia and urinalysis negative for UTI, influenza is pending Departure Diagnosis: Primary Impression: CHF (congestive heart failure) Additional Impressions: Acute febrile illness Anemia Condition: Stable Comments I discussed the findings with the patient. I discussed the patient with Dr. Glasgow who was on-call for his physician Dr. Hannah . He was made aware of the lab, the treatment, the patient condition. The patient is admitted to Tele DAVID POLO MD Apr 16, 2016 05:20
[2016-04-16 05:43] LABS: INR 1.16; PROTIME 14.8 Sec (12.2-14.2); PT RATIO 1.2
[2016-04-16 05:44] LABS: PARTIAL THROMBOPLASTIN TIME 30.3 Sec (25.0-35.0)
[2016-04-16 05:46] LABS: ALBUMIN 2.5 g/dl (3.3-4.9)
[2016-04-16 05:47] LABS: POTASSIUM 3.8 mmol/L (3.5-5.1)
[2016-04-16 05:49] LABS: BILIRUBIN,INDIRECT 0.3 mg/dl (0-1.1); BILIRUBIN,TOTAL 0.3 mg/dl (0.2-1.3); CREATININE 1.33 mg/dl (0.61-1.24)
[2016-04-16 05:50] LABS: CALCIUM 7.6 mg/dl (8.4-10.2)
[2016-04-16] MEDS ORDERED: FUROSEMIDE 40 MG INJ IV ONE (06:00)
[2016-04-16 06:02] LABS: TROPONIN-I 0.063 ng/ml (0.00-0.12)
[2016-04-16 06:03] LABS: HEMOGLOBIN 10.7 g/dl (14.0-18.0); MEAN CORPUSCULAR HEMOGLOBIN 28.8 pg (29.0-33.0); MEAN CORPUSCULAR HGB CONC 30.6 g/dl (32.0-37.0); MEAN CORPUSCULAR VOLUME 94.1 fl (82.0-101.0); MEAN PLATELET VOLUME 11.1 fl (7.4-10.4); NEUTROPHILS % 77.9 % (39.0-77.0); PLATELET COUNT 159 10^3/UL (140-440); RED BLOOD COUNT 3.72 10^6/ul (4.70-6.10); WHITE BLOOD COUNT 11.6 10^3/ul (4.8-10.8)
[2016-04-16 06:04] LABS: BASOPHILS % 0.2 % (0.0-2.0); EOSINOPHILS # 0.2 10^3/ul (0.0-0.5); EOSINOPHILS % 1.6 % (0.0-7.0); LYMPHOCYTES # 1.3 10^3/ul (0.8-2.9); LYMPHOCYTES % 11.6 % (15.0-51.0); MONOCYTE # 0.9 10^3/ul (0.3-0.9)
--- NOTE | 2016-04-16 06:47 | RADRPT ---
PROCEDURE: Chest. CLINICAL INDICATION: Chest pain. TECHNIQUE: Single frontal view of the chest was obtained. COMPARISON: 04/02/2016. FINDINGS: Mediasternotomy wires are present. There is a left-sided AICD. The cardiac silhouette is enlarged. The aortic arch is unremarkable. There is no focal consolidation, vascular congestion or pleural effusion. There is no pneumothorax. IMPRESSION: Mild cardiomegaly. .Raymon Matute MD, MD Date Time Electronically viewed and signed by .Raymon Matute MD, on 04/16/2016 06:47 .T/
[2016-04-16 07:50] LABS: ADD UMIC NO; URINE BILIRUBIN (Dip) NEGATIVE (NEGATIVE); URINE BLOOD (Dip) NEGATIVE (NEGATIVE); URINE COLOR LT. YELLOW (YELLOW); URINE GLUCOSE (Dip) NEGATIVE (NEGATIVE); URINE KETONES (Dip) NEGATIVE (NEGATIVE); URINE LEUKOCYTE ESTERASE (Dip) NEGATIVE (NEGATIVE); URINE NITRITE (Dip) NEGATIVE (NEGATIVE); URINE TOTAL PROTEIN (Dip) NEGATIVE (NEGATIVE); URINE UROBILINOGEN (Dip) 0.2 E.U./dL (0.1-1.0)
[2016-04-16 08:30] VITALS: TEMP 98.5
[2016-04-16] MEDS ORDERED: NACL 0.9% 3 ML SYG IV SCH (11:30)
[2016-04-16] MEDS ORDERED: ONDANSETRON 4 MG INJ IV PRN (11:30)
[2016-04-16] MEDS ORDERED: ACETAMINOPHEN 325 MG TAB PO PRN (11:30)
--- NOTE | 2016-04-16 13:48 | HP ---
Date/Time of Note Date/Time of Note DATE: 04/16/16 TIME: 13:46 Assessment/Plan VTE Prophylaxis VTE Prophylaxis Intervention: LMWH Assessment/Plan Chief Complaint/Hosp Course 1) congestive heart failure - IV lasix - check echocardiologram - consult cardiology 2) hypertension - continue home meds 3) hypercholesterolemia - continue meds Problems: HPI/ROS Admit Date/Time Admit Date/Time Hx of Present Illness Patient with hypertension, hypercholesterolemia, and congestive heart failure comes in with one week of increasing shortness of breath. Patient has a history of the same with recent hospitalization. Patient also complains of productive cough but denies any fever or chills. PMH/Family/Social Past Medical History Medical History: congestive heart failure, high cholesterol, hypertension Past Surgical History Past Surgical Hx: coronary bypass surgery, other Social History Alcohol Use: occasionally Smoking Status: Unknown if ever smoked Exam/Review of Systems Vital Signs Vitals Vital Signs Date Time Temp Pulse Resp B/P Pulse Ox O2 Delivery O2 Flow Rate FiO2 04/16/16 12:30 62 16 132/79 99 Room Air 04/16/16 08:30 98.5 Exam Head: atraumatic, normocephalic Neck: supple Respiratory: diminished breath sounds Cardiovascular: regular rate and rhythm Gastrointestinal: non-tender, soft Extremities: normal pulses Labs Result Diagram: 04/16/160 04/16/16 0440 Medications Medications Current Medications Amiodarone HCl (Cordarone) 200 mg BID PO ; Start 04/16/16 at 21:00 Aspirin (Aspirin) 81 mg DAILY PO ; Start 04/17/16 at 09:00 Atorvastatin Calcium (Lipitor) 20 mg DAILY PO ; Start 04/17/16 at 09:00 Carisoprodol (Soma) 350 mg BID PO ; Start 04/16/16 at 21:00 Carvedilol (Coreg) 25 mg BID PO ; Start 04/16/16 at 21:00 Clopidogrel Bisulfate (plaVIX) 75 mg DAILY PO ; Start 04/17/16 at 09:00 Duloxetine HCl (Cymbalta) 60 mg QHS PO ; Start 04/16/16 at 21:00 Gabapentin (Neurontin) 300 mg BID PO ; Start 04/16/16 at 21:00 Lisinopril (Zestril) 20 mg DAILY PO ; Start 04/17/16 at 09:00 Ondansetron HCl (Zofran Inj) 4 mg Q6H PRN IV NAUSEA AND/OR VOMITING; Start 04/16 at 11:30 Furosemide (Lasix) 20 mg Q12 IV ; Start 04/16/16 at 21:00 Acetaminophen (Tylenol Tab) 650 mg Q6H PRN PO PAIN LEVEL 1-3 OR FEVER; Start at 11:30 Morphine Sulfate (morphine) 2 mg Q4H PRN IV PAIN LEVEL 7-10; Start 04/16/16 at 11:30 Famotidine (Pepcid Iv) 20 mg Q12 IV ; Start 04/16/16 at 21:00 Enoxaparin Sodium (Lovenox) 30 mg DAILY SC ; Start 04/17/16 at 09:00 KINGA SALADÑA Apr 16, 2016 13:48
--- NOTE | 2016-04-16 15:03 | CONS ---
Date/Time of Note Date/Time of Note DATE: 04/16/16 TIME: 14:59 Assessment/Plan Assessment/Plan Chief Complaint/Hosp Course 1) CHF diastolic acute and chronic 2) h/o preserved systolic function 3) VT 4) ICD 5) CAD 6) CABG 7) Febrile illness Problems: Additional Assessment/Plan 1) diuresis 2) continue other meds 3)_ echo 4) blood cultures Consultation Date/Type/Reason Admit Date/Time Date of Consultation: Apr 16, 2016 Type of Consultation: cv Referring Provider: KINGA SALDAÑA Hx of Present Illness came to ED with increasing sob, no chest pain, felt chills recently. had 102.3 temp upon admission Constitutional: febrile Eyes: no complaints ENT: no complaints Respiratory: shortness of breath Cardiovascular: no complaints Gastrointestinal: no complaints Musculoskeletal: no complaints Skin: no complaints Neurologic: no complaints Past Medical History Medical History: congestive heart failure, high cholesterol, hypertension Past Surgical History Past Surgical Hx: coronary bypass surgery, other Family History Significant Family History: hypertension Social History Alcohol Use: occasionally Smoking Status: Unknown if ever smoked Drug Use: none Exam/Review of Systems Vital Signs Vitals Vital Signs Date Time Temp Pulse Resp B/P Pulse Ox O2 Delivery O2 Flow Rate FiO2 04/16/16 14:51 80 16 144/82 99 Room Air 04/16/16 08:30 98.5 Exam Constitutional: alert, oriented Head: atraumatic, normocephalic Neck: jvd Respiratory: diminished breath sounds Cardiovascular: regular rate and rhythm Gastrointestinal: soft Musculoskeletal: nl extremities to inspection Results Result Diagram: 04/16/16 0440 04/16/16 0440 Results 24 hrs Laboratory Tests Test 04/16/16 04:40 04/16/16 06:42 04/16/16 07:07 04/16/16 08:31 Activated Partial Thromboplast Time 30.3 Alanine Aminotransferase (ALT/SGPT) 50 Albumin 2.5 L Albumin/Globulin Ratio 1.00 Alkaline Phosphatase 105 Anion Gap 12 Aspartate Amino Transf (AST/SGOT) 29 B-Type Natriuretic Peptide 7570 H Basophils # 0.0 Basophils % 0.2 Blood Urea Nitrogen 23 H Calcium Level 7.6 L Carbon Dioxide Level 25 Chloride Level 106 Creatinine 1.33 H Direct Bilirubin 0.00 Eosinophils # 0.2 Eosinophils % 1.6 Globulin 2.50 Glucose Level 180 Hematocrit 35.0 L Hemoglobin 10.7 L INR International Normalized Ratio 1.16 Indirect Bilirubin 0.3 Lactic Acid Level 2.7 H 1.4 1.5 Lymphocytes # 1.3 Lymphocytes % 11.6 L Mean Corpuscular Hemoglobin 28.8 L Mean Corpuscular Hemoglobin Concent 30.6 L Mean Corpuscular Volume 94.1 Mean Platelet Volume 11.1 #H Monocytes # 0.9 Monocytes % 8.0 Neutrophils # 9.0 H Neutrophils % 77.9 H Nucleated Red Blood Cells # 0.0 Nucleated Red Blood Cells % 0.0 Platelet Count 159 # Potassium Level 3.8 Prothrombin Time 14.8 H Prothrombin Time Ratio 1.2 Red Blood Count 3.72 L Red Cell Distribution Width 14.0 Sodium Level 139 Total Bilirubin 0.3 Total Protein 5.0 L Troponin I 0.063 White Blood Count 11.6 H Urine Bilirubin NEGATIVE Urine Clarity CLEAR Urine Color LT. YELLOW Urine Glucose NEGATIVE Urine Hemoglobin NEGATIVE Urine Ketones NEGATIVE Urine Leukocyte Esterase NEGATIVE Urine Nitrite NEGATIVE Urine Specific Cook 1.010 Urine Total Protein NEGATIVE Urine Urobilinogen 0.2 E.U./dL Urine pH 6.0 Medications Medications Current Medications Amiodarone HCl (Cordarone) 200 mg BID PO ; Start 04/16/16 at 21:00 Aspirin (Aspirin) 81 mg DAILY PO ; Start 04/17/16 at 09:00 Atorvastatin Calcium (Lipitor) 20 mg DAILY PO ; Start 04/17/16 at 09:00 Carisoprodol (Soma) 350 mg BID PO ; Start 04/16/16 at 21:00 Carvedilol (Coreg) 25 mg BID PO ; Start 04/16/16 at 21:00 Clopidogrel Bisulfate (plaVIX) 75 mg DAILY PO ; Start 04/17/16 at 09:00 Duloxetine HCl (Cymbalta) 60 mg QHS PO ; Start 04/16/16 at 21:00 Gabapentin (Neurontin) 300 mg BID PO ; Start 04/16/16 at 21:00 Lisinopril (Zestril) 20 mg DAILY PO ; Start 04/17/16 at 09:00 Ondansetron HCl (Zofran Inj) 4 mg Q6H PRN IV NAUSEA AND/OR VOMITING; Start 04/16 at 11:30 Furosemide (Lasix) 20 mg Q12 IV ; Start 04/16/16 at 21:00 Acetaminophen (Tylenol Tab) 650 mg Q6H PRN PO PAIN LEVEL 1-3 OR FEVER; Start at 11:30 Morphine Sulfate (morphine) 2 mg Q4H PRN IV PAIN LEVEL 7-10; Start 04/16/16 at 11:30 Famotidine (Pepcid Iv) 20 mg Q12 IV ; Start 04/16/16 at 21:00 Enoxaparin Sodium (Lovenox) 30 mg DAILY SC ; Start 04/17/16 at 09:00 PATIENCE COLLIER MD Apr 16, 2016 15:03
[2016-04-16 15:29] VITALS: BP 137/78; RESP 18
[2016-04-16 16:27] VITALS: PULSE 80
[2016-04-16 16:41] VITALS: Ht 175.3 cm; Wt 103.8 kg
[2016-04-16 20:21] VITALS: PULSE 80
[2016-04-16] MEDS ORDERED: RESTORIL PO PRN (20:30)
[2016-04-16 20:40] VITALS: BP 157/75; RESP 20
[2016-04-16] MEDS: GABAPENTIN 300 MG CAP PO SCH (21:00)
[2016-04-16] MEDS: GUAIFENESIN/DM 5ML CUP PO PRN (21:00)
[2016-04-16] MEDS: AMIODARONE 200 MG TAB PO SCH (21:00)
[2016-04-16] MEDS: DULOXETINE 30 MG CAP DR PO SCH (21:00)
[2016-04-16] MEDS: FAMOTIDINE 20 MG INJ IV SCH (21:01)
[2016-04-16] MEDS: FUROSEMIDE 40 MG INJ IV SCH (21:02)
[2016-04-16] MEDS: CARISOPRODOL 350 MG TAB PO SCH (21:50)
[2016-04-16] MEDS: TEMAZEPAM 15 MG CAP PO PRN (22:48)
[2016-04-16 23:42] VITALS: BP 123/62; RESP 20
[2016-04-17] VITALS (12 sets, daily range): BP systolic 116–158; BP diastolic 68–83; PULSE 80–85; RESP 18–20
[2016-04-17] MEDS: GUAIFENESIN/DM 5ML CUP PO PRN ×3 (02:57→21:34)
[2016-04-17 06:44] LABS: BASOPHILS % 0.3 % (0.0-2.0); EOSINOPHILS # 0.4 10^3/ul (0.0-0.5); EOSINOPHILS % 4.3 % (0.0-7.0); HEMATOCRIT 34.8 % (42.0-52.0); HEMOGLOBIN 11.6 g/dl (14.0-18.0); LYMPHOCYTES # 1.5 10^3/ul (0.8-2.9); LYMPHOCYTES % 18.3 % (15.0-51.0); MEAN CORPUSCULAR HEMOGLOBIN 29.6 pg (29.0-33.0); MEAN CORPUSCULAR HGB CONC 33.3 g/dl (32.0-37.0); MEAN CORPUSCULAR VOLUME 88.9 fl (82.0-101.0); MEAN PLATELET VOLUME 9.2 fl (7.4-10.4); MONOCYTES % 11.8 % (0.0-11.0); NEUTROPHIL # 5.3 10^3/ul (1.6-7.5); NEUTROPHILS % 65.3 % (39.0-77.0); PLATELET COUNT 149 10^3/UL (140-440); RED BLOOD COUNT 3.92 10^6/ul (4.70-6.10); RED CELL DISTRIBUTION WIDTH 14.6 % (11.5-14.5); UNCORRECTED WBC 8.1 10^3/ul (4.8-10.8); WHITE BLOOD COUNT 8.1 10^3/ul (4.8-10.8)
[2016-04-17 06:47] LABS: CONDITION 1; LH ANALYZER COMMENTS 1
[2016-04-17 06:58] LABS: ALBUMIN 2.7 g/dl (3.3-4.9)
[2016-04-17 06:59] LABS: POTASSIUM 3.5 mmol/L (3.5-5.1)
[2016-04-17 07:01] LABS: ALBUMIN/GLOBULIN RATIO 1.08; BILIRUBIN,INDIRECT 0.2 mg/dl (0-1.1); BILIRUBIN,TOTAL 0.2 mg/dl (0.2-1.3); CREATININE 1.13 mg/dl (0.61-1.24); TOTAL PROTEIN 5.2 g/dl (6.1-8.1)
[2016-04-17 07:02] LABS: CALCIUM 7.9 mg/dl (8.4-10.2)
[2016-04-17] MEDS: CARISOPRODOL 350 MG TAB PO SCH ×2 (09:00→20:50)
[2016-04-17] MEDS: ATORVASTATIN 20 MG TAB PO SCH (09:11)
[2016-04-17] MEDS: GABAPENTIN 300 MG CAP PO SCH ×2 (09:11→20:49)
[2016-04-17] MEDS: ASPIRIN 81 MG TAB PO SCH (09:11)
[2016-04-17] MEDS: AMIODARONE 200 MG TAB PO SCH (09:12)
[2016-04-17] MEDS: LISINOPRIL 20 MG TAB PO SCH (09:12)
[2016-04-17] MEDS: FUROSEMIDE 40 MG INJ IV SCH ×2 (09:13→20:50)
[2016-04-17] MEDS: FAMOTIDINE 20 MG INJ IV SCH (09:13)
[2016-04-17] MEDS: CLOPIDOGREL 75 MG TAB PO SCH (09:14)
[2016-04-17] MEDS: ENOXAPARIN 30 MG/0.3 ML SYG SC SCH (09:48)
--- NOTE | 2016-04-17 11:26 | PN ---
Date/Time of Note Date/Time of Note DATE: 04/17/16 TIME: 11:25 Assessment/Plan VTE Prophylaxis VTE Prophylaxis Intervention: other Lines/Catheters IV [facility]ter [facility]from [facility] Saline Lock Urinary Cath still in place: No Assessment/Plan Chief Complaint/Hosp Course 1) congestive heart failure - IV lasix - check echocardiogram - consult cardiology 2) hypertension - continue home meds 3) hypercholesterolemia - continue meds Problems: Subjective 24 Hr Interval Summary Free Text/Dictation Patient is feeling better Exam/Review of Systems Vital Signs Vitals Vital Signs Date Time Temp Pulse Resp B/P Pulse Ox O2 Delivery O2 Flow Rate FiO2 04/17/16 08:51 80 04/17/16 08:17 99.2 18 158/83 98 04/16/16 14:51 Room Air Intake and Output 04/16/16 04/16/16 04/17/16 15:00 23:00 07:00 Intake Total 200 ml 450 ml 700 ml Output Total 1500 ml 2180 ml Balance -1300 ml 450 ml -1480 ml Exam Constitutional: well developed Head: atraumatic, normocephalic Neck: supple Respiratory: clear to auscultation Cardiovascular: regular rate and rhythm Gastrointestinal: non-tender, soft Results Result Diagram: 04/17/16 0600 04/17/16 0600 Results 24 hrs Laboratory Tests Test 04/17/16 06:00 Alanine Aminotransferase (ALT/SGPT) 54 Albumin 2.7 L Albumin/Globulin Ratio 1.08 Alkaline Phosphatase 95 Anion Gap 11 Aspartate Amino Transf (AST/SGOT) 30 Basophils # 0.0 Basophils % 0.3 Blood Morphology Comment Blood Urea Nitrogen 21 H Calcium Level 7.9 L Carbon Dioxide Level 30 Chloride Level 101 Creatinine 1.13 Direct Bilirubin 0.00 Eosinophils # 0.4 Eosinophils % 4.3 Globulin 2.50 Glucose Level 151 Hematocrit 34.8 L Hemoglobin 11.6 L Indirect Bilirubin 0.2 Lymphocytes # 1.5 Lymphocytes % 18.3 Mean Corpuscular Hemoglobin 29.6 Mean Corpuscular Hemoglobin Concent 33.3 Mean Corpuscular Volume 88.9 Mean Platelet Volume 9.2 Monocytes # 1.0 H Monocytes % 11.8 H Neutrophils # 5.3 Neutrophils % 65.3 Nucleated Red Blood Cells # 0.0 Nucleated Red Blood Cells % 0.0 Platelet Count 149 Potassium Level 3.5 Red Blood Count 3.92 L Red Cell Distribution Width 14.6 H Sodium Level 138 Total Bilirubin 0.2 Total Protein 5.2 L White Blood Count 8.1 # Medications Medications Current Medications Amiodarone HCl (Cordarone) 200 mg BID PO Last administered on 04/17/16 09:12; Admin Dose 200 MG; Start 04/16/16 at 21:00 Aspirin (Aspirin) 81 mg DAILY PO Last administered on 04/17/16 09:11; Admin Dose 81 MG; Start 04/17/16 at 09:00 Atorvastatin Calcium (Lipitor) 20 mg DAILY PO Last administered on 04/17/16 09: 11; Admin Dose 20 MG; Start 04/17/16 at 09:00 Carisoprodol (Soma) 350 mg BID PO Last administered on 04/17/16 09:00; Admin Dose 350 MG; Start 04/16/16 at 21:00 Carvedilol (Coreg) 25 mg BID PO Last administered on 04/17/16 09:12; Admin Dose 25 MG; Start 04/16/16 at 21:00 Clopidogrel Bisulfate (plaVIX) 75 mg DAILY PO Last administered on 04/17/16 09: 14; Admin Dose 75 MG; Start 04/17/16 at 09:00 Duloxetine HCl (Cymbalta) 60 mg QHS PO Last administered on 04/16/16 21:00; Admin Dose 60 MG; Start 04/16/16 at 21:00 Gabapentin (Neurontin) 300 mg BID PO Last administered on 04/17/16 09:11; Admin Dose 300 MG; Start 04/16/16 at 21:00 Lisinopril (Zestril) 20 mg DAILY PO Last administered on 04/17/16 09:12; Admin Dose 20 MG; Start 04/17/16 at 09:00 Ondansetron HCl (Zofran Inj) 4 mg Q6H PRN IV NAUSEA AND/OR VOMITING; Start 04/16 at 11:30 Furosemide (Lasix) 20 mg Q12 IV Last administered on 04/17/16 09:13; Admin Dose 20 MG; Start 04/16/16 at 21:00 Acetaminophen (Tylenol Tab) 650 mg Q6H PRN PO PAIN LEVEL 1-3 OR FEVER; Start at 11:30 Morphine Sulfate (morphine) 2 mg Q4H PRN IV PAIN LEVEL 7-10; Start 04/16/16 at 11:30 Famotidine (Pepcid Iv) 20 mg Q12 IV Last administered on 04/17/16 09:13; Admin Dose 20 MG; Start 04/16/16 at 21:00 Enoxaparin Sodium (Lovenox) 30 mg DAILY SC Last administered on 04/17/16 09:48 ; Admin Dose 30 MG; Start 04/17/16 at 09:00 Guaifenesin/ Dextromethorphan (Robitussin Dm Liquid Cup) 5 ml Q6 PRN PO cough Last administered on 04/17/16 02:57; Admin Dose 5 ML; Start 04/16/16 at 20:30 Temazepam (Restoril) 15 mg HS PRN PO INSOMNIA Last administered on 04/16/16 22: 48; Admin Dose 15 MG; Start 04/16/16 at 20:30 KINGA SALDAÑA Apr 17, 2016 11:26
[2016-04-17] MEDS ORDERED: POTASSIUM CHLORIDE (SR) 20 MEQ TAB PO STA (16:16)
--- NOTE | 2016-04-17 16:17 | CONS ---
Date/Time of Note Date/Time of Note DATE: 04/17/16 TIME: 16:12 Assessment/Plan Assessment/Plan Additional Assessment/Plan Acute decompensated diastolic congestive heart failure Coronary artery disease with history of CABG Ventricular tachycardia status post ICD Hypertension -Patient with thyroid dysfunction on amiodarone recently, hold off. Change diuretics to by mouth in the next one to 2 days. Blood pressure currently well controlled, supplement potassium. Dr Gaxiola to resume care 04/18/2016 Consultation Date/Type/Reason Admit Date/Time Apr 16, 2016 at 06:01 Initial Consult Date 04/16/16 Type of Consultation: cv Referring Provider: KINGA SALDAÑA 24 HR Interval Summary Free Text/Dictation Shortness of breath is better, cough is improved Exam/Review of Systems Vital Signs Vitals Vital Signs Date Time Temp Pulse Resp B/P Pulse Ox O2 Delivery O2 Flow Rate FiO2 04/17/16 15:49 98.0 80 18 124/72 98 04/16/16 14:51 Room Air Intake and Output 04/16/16 04/16/16 04/17/16 15:00 23:00 07:00 Intake Total 200 ml 450 ml 700 ml Output Total 1500 ml 2180 ml Balance -1300 ml 450 ml -1480 ml Exam No apparent distress Constitutional: alert, obese, oriented Head: normocephalic Neck: supple Respiratory: other (course breath sounds bilaterally, no wheezing) Cardiovascular: other (S1 and S2 heard), regular rate and rhythm Gastrointestinal: bowel sounds, non-tender, other (no guarding), soft Extremities: edema Results Result Diagram: 04/17/16 0600 04/17/16 0600 Results 24 hrs Laboratory Tests Test 04/17/16 06:00 Alanine Aminotransferase (ALT/SGPT) 54 Albumin 2.7 L Albumin/Globulin Ratio 1.08 Alkaline Phosphatase 95 Anion Gap 11 Aspartate Amino Transf (AST/SGOT) 30 Basophils # 0.0 Basophils % 0.3 Blood Morphology Comment Blood Urea Nitrogen 21 H Calcium Level 7.9 L Carbon Dioxide Level 30 Chloride Level 101 Creatinine 1.13 Direct Bilirubin 0.00 Eosinophils # 0.4 Eosinophils % 4.3 Globulin 2.50 Glucose Level 151 Hematocrit 34.8 L Hemoglobin 11.6 L Indirect Bilirubin 0.2 Lymphocytes # 1.5 Lymphocytes % 18.3 Mean Corpuscular Hemoglobin 29.6 Mean Corpuscular Hemoglobin Concent 33.3 Mean Corpuscular Volume 88.9 Mean Platelet Volume 9.2 Monocytes # 1.0 H Monocytes % 11.8 H Neutrophils # 5.3 Neutrophils % 65.3 Nucleated Red Blood Cells # 0.0 Nucleated Red Blood Cells % 0.0 Platelet Count 149 Potassium Level 3.5 Red Blood Count 3.92 L Red Cell Distribution Width 14.6 H Sodium Level 138 Total Bilirubin 0.2 Total Protein 5.2 L White Blood Count 8.1 # Medications Medications Current Medications Amiodarone HCl (Cordarone) 200 mg BID PO Last administered on 04/17/16 09:12; Admin Dose 200 MG; Start 04/16/16 at 21:00 Aspirin (Aspirin) 81 mg DAILY PO Last administered on 04/17/16 09:11; Admin Dose 81 MG; Start 04/17/16 at 09:00 Atorvastatin Calcium (Lipitor) 20 mg DAILY PO Last administered on 04/17/16 09: 11; Admin Dose 20 MG; Start 04/17/16 at 09:00 Carisoprodol (Soma) 350 mg BID PO Last administered on 04/17/16 09:00; Admin Dose 350 MG; Start 04/16/16 at 21:00 Carvedilol (Coreg) 25 mg BID PO Last administered on 04/17/16 09:12; Admin Dose 25 MG; Start 04/16/16 at 21:00 Clopidogrel Bisulfate (plaVIX) 75 mg DAILY PO Last administered on 04/17/16 09: 14; Admin Dose 75 MG; Start 04/17/16 at 09:00 Duloxetine HCl (Cymbalta) 60 mg QHS PO Last administered on 04/16/16 21:00; Admin Dose 60 MG; Start 04/16/16 at 21:00 Gabapentin (Neurontin) 300 mg BID PO Last administered on 04/17/16 09:11; Admin Dose 300 MG; Start 04/16/16 at 21:00 Lisinopril (Zestril) 20 mg DAILY PO Last administered on 04/17/16 09:12; Admin Dose 20 MG; Start 04/17/16 at 09:00 Ondansetron HCl (Zofran Inj) 4 mg Q6H PRN IV NAUSEA AND/OR VOMITING; Start 04/16 at 11:30 Furosemide (Lasix) 20 mg Q12 IV Last administered on 04/17/16 09:13; Admin Dose 20 MG; Start 04/16/16 at 21:00 Acetaminophen (Tylenol Tab) 650 mg Q6H PRN PO PAIN LEVEL 1-3 OR FEVER; Start at 11:30 Morphine Sulfate (morphine) 2 mg Q4H PRN IV PAIN LEVEL 7-10; Start 04/16/16 at 11:30 Famotidine (Pepcid Iv) 20 mg Q12 IV Last administered on 04/17/16 09:13; Admin Dose 20 MG; Start 04/16/16 at 21:00 Enoxaparin Sodium (Lovenox) 30 mg DAILY SC Last administered on 04/17/16 09:48 ; Admin Dose 30 MG; Start 04/17/16 at 09:00 Guaifenesin/ Dextromethorphan (Robitussin Dm Liquid Cup) 5 ml Q6 PRN PO cough Last administered on 04/17/16 15:04; Admin Dose 5 ML; Start 04/16/16 at 20:30 Temazepam (Restoril) 15 mg HS PRN PO INSOMNIA Last administered on 04/16/16 22: 48; Admin Dose 15 MG; Start 04/16/16 at 20:30 Josh Marcelino DO Apr 17, 2016 16:17
[2016-04-17] MEDS: DULOXETINE 30 MG CAP DR PO SCH (20:49)
[2016-04-17] MEDS: FAMOTIDINE 20 MG TAB PO SCH (20:51)
[2016-04-17] MEDS: TEMAZEPAM 15 MG CAP PO PRN (21:35)
[2016-04-18] VITALS (13 sets, daily range): BP systolic 101–156; BP diastolic 57–87; PULSE 77–80; RESP 18–20
[2016-04-18] MEDS: morphine 2 MG INJ IV PRN (02:57)
[2016-04-18] MEDS: GUAIFENESIN/DM 5ML CUP PO PRN (03:41)
[2016-04-18] MEDS: CLOPIDOGREL 75 MG TAB PO SCH (08:55)
[2016-04-18] MEDS: ASPIRIN 81 MG TAB PO SCH (08:55)
[2016-04-18] MEDS: ATORVASTATIN 20 MG TAB PO SCH (08:55)
[2016-04-18] MEDS: GABAPENTIN 300 MG CAP PO SCH ×2 (08:55→21:00)
[2016-04-18] MEDS: FAMOTIDINE 20 MG TAB PO SCH ×2 (08:55→21:00)
[2016-04-18] MEDS: LISINOPRIL 20 MG TAB PO SCH (08:56)
[2016-04-18] MEDS: FUROSEMIDE 40 MG INJ IV SCH (08:57)
[2016-04-18] MEDS: ENOXAPARIN 30 MG/0.3 ML SYG SC SCH (09:19)
[2016-04-18] MEDS: CARISOPRODOL 350 MG TAB PO SCH ×2 (10:07→21:00)
[2016-04-18] MEDS: METHIMAZOLE 5 MG TAB PO SCH (11:51)
[2016-04-18] MEDS: predniSONE 50 MG TAB PO SCH (11:51)
--- NOTE | 2016-04-18 13:19 | CONS ---
Date/Time of Note Date/Time of Note DATE: 04/18/16 TIME: 13:12 Assessment/Plan Assessment/Plan Problems: (1) Amiodarone-induced hyperthyroidism Status: Chronic Comment: Resume prednisone 50 mg/d and methimazole 30 mg/d. Will recheck TFT' s and follow. Consultation Date/Type/Reason Admit Date/Time Apr 16, 2016 at 06:01 Date of Consultation: Apr 18, 2016 Type of Consultation: Endocrinology Reason for Consultation Amiodarone induced thyrotoxicosis Referring Provider: JOSE VELASQUEZ Hx of Present Illness 65 y/o C M w/ h/o HTN, hyperlipidemia, CAD s/p CABG x 5 vs, pacer, spinal stenosis with radiculopathy previously seen by me 3 weeks ago here at [facility] for amiodarone-induced thyrotoxicosis returns for increasing SOB, NEAL, cough and feelings of volume overload. Pt. reports adherence w/ prednisone and methimazole as outpt. but admits that he could not remember the names on admit and these meds were not continued at the time of admit. Pt. called our office from within the hospital asking the names of the meds. I decided to personally manage his thyroid disease again. Constitutional: febrile Eyes: no complaints ENT: no complaints Respiratory: cough, shortness of breath Cardiovascular: orthopenea Gastrointestinal: no complaints Genitourinary: no complaints Musculoskeletal: no complaints Neurologic: no complaints Past Medical History Medical History: congestive heart failure, coronary artery disease, high cholesterol, hypertension, hyperthyroid, renal disease, other (lumbar disease with radiculopathy) Past Surgical History Past Surgical Hx: coronary bypass surgery, other (lumbar surgery, pacer, tonsillectomy) Family History Significant Family History: other (adopted) Social History b. 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 [employer], single, no children Alcohol Use: occasionally Smoking Status: Never smoker Drug Use: none Exam/Review of Systems Vital Signs Vitals Vital Signs Date Time Temp Pulse Resp B/P Pulse Ox O2 Delivery O2 Flow Rate FiO2 04/18/16 12:07 98.0 80 18 115/70 98 04/16/16 14:51 Room Air Intake and Output 04/17/16 04/17/16 04/18/16 15:00 23:00 07:00 Intake Total 300 ml 400 ml Output Total 500 ml 1000 ml Balance -200 ml -600 ml Exam Constitutional: alert, obese, oriented Psych: nl mood/affect, no complaints Eyes: EOMI, PERRL, nl conjunctiva, nl lids, nl sclera ENMT: mucosa pink and moist, nl external ears & nose Neck: non-tender, supple, No bruits, No masses, No thyromegaly Respiratory: clear to auscultation, normal air movement Cardiovascular: nl pulses, regular rate and rhythm, No edema, No murmurs/extra sounds, No rub Gastrointestinal: bowel sounds, nl liver, spleen, non-tender, soft, No mass, No rebound or guarding Musculoskeletal: nl extremities to inspection Extremities: normal pulses, No clubbing, No cyanosis, No edema 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 intact, nl mental status, nl speech, nl strength Results Result Diagram: 04/17/16 0600 04/17/16 0600 Medications Medications Current Medications Aspirin (Aspirin) 81 mg DAILY PO Last administered on 04/18/16 08:55; Admin Dose 81 MG; Start 04/17/16 at 09:00 Atorvastatin Calcium (Lipitor) 20 mg DAILY PO Last administered on 04/18/16 08: 55; Admin Dose 20 MG; Start 04/17/16 at 09:00 Carisoprodol (Soma) 350 mg BID PO Last administered on 04/18/16 10:07; Admin Dose 350 MG; Start 04/16/16 at 21:00 Carvedilol (Coreg) 25 mg BID PO Last administered on 04/18/16 08:56; Admin Dose 25 MG; Start 04/16/16 at 21:00 Clopidogrel Bisulfate (plaVIX) 75 mg DAILY PO Last administered on 04/18/16 08: 55; Admin Dose 75 MG; Start 04/17/16 at 09:00 Duloxetine HCl (Cymbalta) 60 mg QHS PO Last administered on 04/17/16 20:49; Admin Dose 60 MG; Start 04/16/16 at 21:00 Gabapentin (Neurontin) 300 mg BID PO Last administered on 04/18/16 08:55; Admin Dose 300 MG; Start 04/16/16 at 21:00 Lisinopril (Zestril) 20 mg DAILY PO Last administered on 04/18/16 08:56; Admin Dose 20 MG; Start 04/17/16 at 09:00 Ondansetron HCl (Zofran Inj) 4 mg Q6H PRN IV NAUSEA AND/OR VOMITING; Start 04/16 at 11:30 Furosemide (Lasix) 20 mg Q12 IV Last administered on 04/18/16 08:57; Admin Dose 20 MG; Start 04/16/16 at 21:00 Acetaminophen (Tylenol Tab) 650 mg Q6H PRN PO PAIN LEVEL 1-3 OR FEVER; Start at 11:30 Morphine Sulfate (morphine) 2 mg Q4H PRN IV PAIN LEVEL 7-10 Last administered on 04/18/16 02:57; Admin Dose 2 MG; Start 04/16/16 at 11:30 Enoxaparin Sodium (Lovenox) 30 mg DAILY SC Last administered on 04/18/16 09:19 ; Admin Dose 30 MG; Start 04/17/16 at 09:00 Guaifenesin/ Dextromethorphan (Robitussin Dm Liquid Cup) 5 ml Q6 PRN PO cough Last administered on 04/18/16 03:41; Admin Dose 5 ML; Start 04/16/16 at 20:30 Temazepam (Restoril) 15 mg HS PRN PO INSOMNIA Last administered on 04/17/16 21: 35; Admin Dose 15 MG; Start 04/16/16 at 20:30 Famotidine (Pepcid) 20 mg Q12 PO Last administered on 04/18/16 08:55; Admin Dose 20 MG; Start 04/17/16 at 21:00 Prednisone (Prednisone) 50 mg DAILY PO Last administered on 04/18/16 11:51; Admin Dose 50 MG; Start 04/18/16 at 09:30 Methimazole (Tapazole) 30 mg DAILY PO Last administered on 04/18/16 11:51; Admin Dose 30 MG; Start 04/18/16 at 09:30 DAVID ALVARADO MD Apr 18, 2016 13:19
--- NOTE | 2016-04-18 16:29 | PN ---
DATE: 04/18/2016 CARDIOLOGY FOLLOWUP SUBJECTIVE: Discussed with the staff. Rhythm strip was reviewed. The patient remains in sinus rhy thm. No chest pain or pressure. He still complains of cough and shortness of breath. Appeared to be improving. MEDICATIONS: Reviewed. PHYSICAL EXAMINATION: VITAL SIGNS: Temperature 98, heart rate of 80, blood pressure 115/70, respiratory rate of 18, satur ating 98%. HEENT: Normocephalic, atraumatic. Pupils are equal. CARDIOVASCULAR: Regular rate and rhythm. PULMONARY: With no wheezes heard. GASTROINTESTINAL: Soft, nontender. EXTREMITIES: Trivial edema. NEUROLOGIC: Awake, responds appropriately. PSYCHIATRIC: Appears to be calm. LABORATORY: WBC of 8.1, hemoglobin 11.6, platelets 149. Sodium 138, potassium 3.5, BUN of 21, crea tinine 1.13, glucose of 151. I's and O's shows 700 in and 1500 out. ASSESSMENT AND PLAN: 1. Dyspnea, probably multifactorial. 2. Congestive heart failure, acute on chronic, secondary to diastolic dysfunction. 3. Coronary artery disease, history of coronary bypass graft. 4. History of ventricular tachycardia, status post ICD. 5. Hypertension. 6. Thyroid disorder with hyperthyroidism. 7. Chronic kidney disease currently appeared to be stable. RECOMMENDATIONS: Methimazole will be adjusted as per endocrine. Potassium will be replaced as need ed. Aspirin and Plavix will be continued. Lipitor will be continued. Continue with the APRIL inhibi tor for now. Coreg will be continued at the current dose. I will change the Lasix to p.o. and Ekaterina ctone will be added. Dictated By: PEÑA CUBA MD AV/NTS Conf#: [id number] DID#: [id number] CC: RADHA LARKIN MD;*EndCC*
[2016-04-18] MEDS: SPIRONOLACTONE 25 MG TAB PO SCH (16:33)
--- NOTE | 2016-04-18 17:46 | PN ---
DATE: 04/18/2016 SUBJECTIVE: Internal medicine progress note. Follow up on 65-year-old male who was admitted with s hortness of breath due to decompensated diastolic congestive heart failure. The patient currently i s monitored on telemetry floor and was in sinus rhythm. Patient stated that he feels better. The p atient denies any fever or chills. Denies any nausea, vomiting. Patient stated that he had cough o n admission which is currently resolved. OBJECTIVE VITAL SIGNS: Temperature is 98.0, pulse is 80, blood pressure 115/70, respiratory rate 18, oxygen s aturation 98% on room air. GENERAL: Well-developed, obese male currently is awake, alert. HEENT: Head is atraumatic, normocephalic. PERRLA. NECK: Supple, no cervical lymphadenopathy. JVD is present. LUNGS: Clear bilaterally, slightly diminished at the bases. HEART: Normal S1, S2. No murmurs. Patient has a permanent pacemaker with AICD. ABDOMEN: Protuberant, soft, nondistended, nontender, bowel sounds present. EXTREMITIES: No edema. Normal pulses. NEUROLOGIC: The patient is awake, alert and oriented x4. ASSESSMENT AND PLAN: 1. Acute decompensated congestive heart failure. Dr. Marcelino is following in cardiology consultatio n. Continue diuretics. Monitor electrolytes. 2. Amiodarone induced hyperthyroidism. Dr. Aguilar is following patient. Endocrinology consultati on. Patient is restarted on Tapazole and prednisone. 3. Coronary artery disease with history of coronary artery bypass graft. 4. Hypertension. Continue Coreg and lisinopril. 5. Dyslipidemia. Continue statin. 6. Depression by history. Continue Cymbalta. 7. History of ventricular tachycardia in the past, status post ICD placement. 8. Chronic kidney disease. 9. We will continue Lovenox for deep venous thrombosis prophylaxis and Pepcid for peptic ulcer dise ase prophylaxis. 10. Further recommendations based on clinical course. Plan of care discussed with Dr. Larkin. Dictated By: JOSE VELASQUEZ GAMING DEALER for RADHA LARKIN MD SR/NTS Conf#: [id number] DID#: [id number]
[2016-04-18] MEDS: DULOXETINE 30 MG CAP DR PO SCH (21:00)
[2016-04-18] MEDS: TEMAZEPAM 15 MG CAP PO PRN (23:03)
[2016-04-19] VITALS (11 sets, daily range): BP systolic 124–138; BP diastolic 55–86; PULSE 80; RESP 15–20
[2016-04-19] MEDS: morphine 2 MG INJ IV PRN ×2 (03:14→14:50)
[2016-04-19] MEDS: GUAIFENESIN/DM 5ML CUP PO PRN ×3 (07:55→23:35)
[2016-04-19] MEDS: ATORVASTATIN 20 MG TAB PO SCH (08:30)
[2016-04-19] MEDS: GABAPENTIN 300 MG CAP PO SCH ×2 (08:30→20:32)
[2016-04-19] MEDS: ASPIRIN 81 MG TAB PO SCH (08:30)
[2016-04-19] MEDS: FAMOTIDINE 20 MG TAB PO SCH ×3 (08:30→20:33)
[2016-04-19] MEDS: CLOPIDOGREL 75 MG TAB PO SCH (08:31)
[2016-04-19] MEDS: predniSONE 50 MG TAB PO SCH (08:31)
[2016-04-19] MEDS: FUROSEMIDE 40 MG TAB PO SCH (08:31)
[2016-04-19] MEDS: LISINOPRIL 20 MG TAB PO SCH (08:32)
[2016-04-19] MEDS: SPIRONOLACTONE 25 MG TAB PO SCH (08:32)
[2016-04-19] MEDS: ENOXAPARIN 30 MG/0.3 ML SYG SC SCH (08:35)
[2016-04-19 08:38] LABS: ALBUMIN 2.9 g/dl (3.3-4.9)
[2016-04-19 08:39] LABS: POTASSIUM 4.5 mmol/L (3.5-5.1)
[2016-04-19] MEDS: CARISOPRODOL 350 MG TAB PO SCH ×2 (08:39→20:36)
[2016-04-19] MEDS: METHIMAZOLE 5 MG TAB PO SCH (08:39)
[2016-04-19 08:40] LABS: CREATININE 1.22 mg/dl (0.61-1.24)
[2016-04-19 08:41] LABS: ALBUMIN/GLOBULIN RATIO 1.11; BILIRUBIN,INDIRECT 0.1 mg/dl (0-1.1); BILIRUBIN,TOTAL 0.1 mg/dl (0.2-1.3); CALCIUM 8.7 mg/dl (8.4-10.2); TOTAL PROTEIN 5.5 g/dl (6.1-8.1)
[2016-04-19 08:42] LABS: CHOL/HDL RATIO 3.6 RATIO
[2016-04-19 08:56] LABS: T3 UPTAKE 44.2 % (23.5-40.5)
[2016-04-19 09:10] LABS: THYROID STIMULATING HORMONE 0.235 MIU/L (0.465-4.680)
--- NOTE | 2016-04-19 17:48 | PN ---
DATE: 04/19/2016 CARDIOLOGY FOLLOWUP SUBJECTIVE: Discussed with the staff. The patient remains in sinus rhythm with frequent PVCs. No sustained VT was noted though. No chest pain. The patient is still complaining of cough, but breat adrian has improved. MEDICATIONS: Reviewed as per medical reconciliation, personally reviewed. PHYSICAL EXAMINATION: VITAL SIGNS: Temperature 98.5, heart rate of 80, blood pressure 125/78, respiration rate of 20, sat urating 97%. HEENT: Normocephalic, atraumatic. Pupils are equal. CARDIOVASCULAR: Regular rate and rhythm. PULMONARY: With no wheezes heard. GASTROINTESTINAL: Soft, nontender. EXTREMITIES: Trivial lower extremity edema. NEUROLOGIC: Awake, alert. PSYCHIATRIC: Calm and pleasant. LABORATORY: Sodium 139, potassium 4.5, BUN 25, creatinine 1.22, glucose 155. Normal of 6.1. ProBNP of 3820. Cholesterol of 176, LDL of 105, HDL of 48. ASSESSMENT AND PLAN: 1. Congestive heart failure, currently appears to be stable on p.o. meds. 2. Coronary artery disease, history of coronary bypass graft. 3. History of percutaneous coronary intervention. 4. Dyslipidemia. 5. Hypertension. 6. History of ventricular tachycardia, status post ICD placement. RECOMMENDATIONS: I will increase the Lipitor to 40 mg a day. We will continue with the rest of his cardiac care. Discharge planning once okay from internal medicine standpoint. Dictated By: PEÑA CUBA MD AV/ANN Conf#: [id number] DID#: [id number] CC: JOSE VELASQUEZ NP; RADHA LARKIN MD;*End*
--- NOTE | 2016-04-19 18:09 | PN ---
Date/Time of Note Date/Time of Note DATE: 04/19/16 TIME: 18:05 Assessment/Plan VTE Prophylaxis VTE Prophylaxis Intervention: SCD's Lines/Catheters IV [facility]from [facility] Urinary Cath still in place: No Assessment/Plan Chief Complaint/Hosp Course ASSESSMENT AND PLAN: 1. Acute decompensated congestive heart failure. Dr. Gaxiola is following in cardiology consultation. Continue diuretics. Monitor electrolytes. 2. Amiodarone induced hyperthyroidism. Dr. Aguilar is following in endocrinology consultation. Continue Tapazole and prednisone. 3. Coronary artery disease with history of coronary artery bypass graft. 4. Hypertension. Continue Coreg and lisinopril. 5. Dyslipidemia. Continue statin. 6. Depression by history. Continue Cymbalta. 7. History of ventricular tachycardia in the past, status post ICD placement. 8. Chronic kidney disease. Continue Lovenox for deep venous thrombosis prophylaxis and Pepcid for peptic ulcer disease prophylaxis. Further recommendations based on clinical course. Plan of care discussed with Dr. Hannah. Problems: Subjective 24 Hr Interval Summary Free Text/Dictation Patient denies any chest pain denies shortness of breath, states some improvement in cough, sinus rhythm with occasional PVCs on telemetry. Exam/Review of Systems Vital Signs Vitals Vital Signs Date Time Temp Pulse Resp B/P Pulse Ox O2 Delivery O2 Flow Rate FiO2 04/19/16 16:29 80 04/19/16 15:38 98.5 20 125/78 97 04/16/16 14:51 Room Air Intake and Output 04/18/16 04/18/16 04/19/16 15:00 23:00 07:00 Intake Total 700 ml 500 ml Output Total 675 ml 1600 ml 500 ml Balance -675 ml -900 ml 0 ml Exam GENERAL: Well-developed, obese male currently is awake, alert. HEENT: Head is atraumatic, normocephalic. PERRLA. NECK: Supple, no cervical lymphadenopathy. JVD is present. LUNGS: Clear bilaterally, slightly diminished at the bases. HEART: Normal S1, S2. No murmurs. Patient has a permanent pacemaker with AICD. ABDOMEN: Protuberant, soft, nondistended, nontender, bowel sounds present. EXTREMITIES: No edema. Normal pulses. NEUROLOGIC: The patient is awake, alert and oriented x4. Results Result Diagram: 04/17/16 0600 04/19/16 0730 Results 24 hrs Laboratory Tests Test 04/19/16 07:30 Alanine Aminotransferase (ALT/SGPT) 51 Albumin 2.9 L Albumin/Globulin Ratio 1.11 Alkaline Phosphatase 91 Anion Gap 12 Aspartate Amino Transf (AST/SGOT) 17 B-Type Natriuretic Peptide 3820 H Blood Urea Nitrogen 25 H Calcium Level 8.7 Carbon Dioxide Level 34 H Chloride Level 98 Cholesterol Level 176 Cholesterol/HDL Ratio 3.6 Creatinine 1.22 Direct Bilirubin 0.00 Free Thyroxine Index 2.39 Globulin 2.60 Glucose Level 155 HDL Cholesterol 48 Hemoglobin A1c 6.1 H Indirect Bilirubin 0.1 LDL Cholesterol, Calculated 105 Magnesium Level 2.0 Potassium Level 4.5 Sodium Level 139 Thyroid Stimulating Hormone (TSH) 0.235 L Thyroxine (T4) 5.4 L Total Bilirubin 0.1 L Total Protein 5.5 L Triglycerides Level 115 Triiodothyronine (T3) Uptake 44.2 H Medications Medications Current Medications Aspirin (Aspirin) 81 mg DAILY PO Last administered on 04/19/16 08:30; Admin Dose 81 MG; Start 04/17/16 at 09:00 Carisoprodol (Soma) 350 mg BID PO Last administered on 04/19/16 08:39; Admin Dose 350 MG; Start 04/16/16 at 21:00 Carvedilol (Coreg) 25 mg BID PO Last administered on 04/19/16 08:32; Admin Dose 25 MG; Start 04/16/16 at 21:00 Clopidogrel Bisulfate (plaVIX) 75 mg DAILY PO Last administered on 04/19/16 08: 31; Admin Dose 75 MG; Start 04/17/16 at 09:00 Duloxetine HCl (Cymbalta) 60 mg QHS PO Last administered on 04/18/16 21:00; Admin Dose 60 MG; Start 04/16/16 at 21:00 Gabapentin (Neurontin) 300 mg BID PO Last administered on 04/19/16 08:30; Admin Dose 300 MG; Start 04/16/16 at 21:00 Lisinopril (Zestril) 20 mg DAILY PO Last administered on 04/19/16 08:32; Admin Dose 20 MG; Start 04/17/16 at 09:00 Ondansetron HCl (Zofran Inj) 4 mg Q6H PRN IV NAUSEA AND/OR VOMITING; Start 04/16 at 11:30 Acetaminophen (Tylenol Tab) 650 mg Q6H PRN PO PAIN LEVEL 1-3 OR FEVER; Start at 11:30 Morphine Sulfate (morphine) 2 mg Q4H PRN IV PAIN LEVEL 7-10 Last administered on 04/19/16 14:50; Admin Dose 2 MG; Start 04/16/16 at 11:30 Enoxaparin Sodium (Lovenox) 30 mg DAILY SC Last administered on 04/19/16 08:35 ; Admin Dose 30 MG; Start 04/17/16 at 09:00 Guaifenesin/ Dextromethorphan (Robitussin Dm Liquid Cup) 5 ml Q6 PRN PO cough Last administered on 04/19/16 14:49; Admin Dose 5 ML; Start 04/16/16 at 20:30 Temazepam (Restoril) 15 mg HS PRN PO INSOMNIA Last administered on 04/18/16 23: 03; Admin Dose 15 MG; Start 04/16/16 at 20:30 Famotidine (Pepcid) 20 mg Q12 PO Last administered on 04/18/16 21:00; Admin Dose 20 MG; Start 04/17/16 at 21:00 Prednisone (Prednisone) 50 mg DAILY PO Last administered on 04/19/16 08:31; Admin Dose 50 MG; Start 04/18/16 at 09:30 Furosemide (Lasix) 40 mg DAILY PO Last administered on 04/19/16 08:31; Admin Dose 40 MG; Start 04/19/16 at 09:00 Spironolactone (Aldactone) 25 mg DAILY PO Last administered on 04/19/16 08:32; Admin Dose 25 MG; Start 04/18/16 at 16:00 Methimazole (Tapazole) 10 mg DAILY PO ; Start 04/20/16 at 09:00 Atorvastatin Calcium (Lipitor) 40 mg DAILY PO ; Start 04/20/16 at 09:00 JOSE VELASQUEZ Apr 19, 2016 18:08
--- NOTE | 2016-04-19 19:08 | CONS ---
Date/Time of Note Date/Time of Note DATE: 04/19/16 TIME: 19:01 Assessment/Plan Assessment/Plan Problems: (1) Amiodarone-induced hyperthyroidism Status: Chronic Comment: Pt. w/ excellent response to methimazole/prednisone combination. FT4I already in normal range. TSH normalizing. Will reduce methimazole to 10 mg from 30 and reeval next week. Not ready to reduce prednisone dosage yet. (2) Hyperglycemia, drug-induced Status: Acute Comment: Steroidogenic. Will add tradjenta 5 mg/d while on steroids. Will follow. Consultation Date/Type/Reason Admit Date/Time Apr 16, 2016 at 06:01 Initial Consult Date 04/18/16 Type of Consultation: Endocrinology Reason for Consultation Amiodarone induced thyrotoxicosis Referring Provider: JOSE VELASQUEZ 24 HR Interval Summary Constitutional: improved, no complaints Detailed Summary Respiratory: no complaints (breathing better) Cardiovascular: no complaints Gastrointestinal: no complaints Genitourinary: no complaints Musculoskeletal: no complaints Neurologic: no complaints Exam/Review of Systems Vital Signs Vitals VS - Last 72 Hours, by Label Date Time Temp Pulse Resp B/P Pulse Ox O2 Delivery O2 Flow Rate FiO2 04/19/16 16:29 80 04/19/16 15:38 98.5 80 20 125/78 97 04/19/16 12:52 80 04/19/16 11:28 97.6 74 20 124/55 97 04/19/16 08:37 80 04/19/16 07:30 98.3 80 20 127/75 96 04/19/16 04:35 80 04/19/16 04:12 98.1 82 20 138/86 96 04/19/16 00:26 80 04/18/16 23:39 98.3 80 20 141/82 96 04/18/16 20:46 77 04/18/16 20:31 98.8 80 20 156/87 99 04/18/16 17:33 77 04/18/16 16:37 98.0 82 18 106/57 98 04/18/16 14:03 80 04/18/16 12:07 98.0 80 18 115/70 98 04/18/16 09:16 80 04/18/16 08:30 98.0 80 18 129/73 98 04/18/16 04:38 80 04/18/16 04:15 97.4 80 20 101/59 96 04/18/16 00:57 97.7 81 20 111/72 97 04/18/16 00:46 80 04/17/16 20:37 80 04/17/16 19:24 98.5 81 18 144/83 99 04/17/16 17:00 80 04/17/16 15:49 98.0 80 18 124/72 98 04/17/16 13:16 80 04/17/16 13:15 85 04/17/16 12:13 99.1 83 20 125/71 96 04/17/16 08:51 80 04/17/16 08:17 99.2 80 18 158/83 98 04/17/16 04:22 97.9 65 20 116/68 97 04/17/16 04:17 80 04/17/16 00:17 80 04/16/16 23:42 98.5 80 20 123/62 97 04/16/16 20:40 98.9 72 20 157/75 96 04/16/16 20:21 80 Vital Signs Date Time Temp Pulse Resp B/P Pulse Ox O2 Delivery O2 Flow Rate FiO2 04/19/16 16:29 80 04/19/16 15:38 98.5 20 125/78 97 04/16/16 14:51 Room Air Intake and Output 04/18/16 04/18/16 04/19/16 15:00 23:00 07:00 Intake Total 700 ml 500 ml Output Total 675 ml 1600 ml 500 ml Balance -675 ml -900 ml 0 ml Exam Constitutional: alert, obese, oriented Psych: nl mood/affect, no complaints Respiratory: clear to auscultation, normal air movement Cardiovascular: nl pulses, regular rate and rhythm, No edema, No murmurs/extra sounds, No rub Gastrointestinal: bowel sounds, nl liver, spleen, non-tender, soft, No mass, No rebound or guarding Musculoskeletal: nl extremities to inspection Extremities: normal pulses, No clubbing, No cyanosis, No edema 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: 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, nl mental status, nl speech, nl strength Results Result Diagram: 04/17/16 0600 04/19/16 0730 Results 24 hrs Laboratory Tests Test 04/19/16 07:30 Alanine Aminotransferase (ALT/SGPT) 51 Albumin 2.9 L Albumin/Globulin Ratio 1.11 Alkaline Phosphatase 91 Anion Gap 12 Aspartate Amino Transf (AST/SGOT) 17 B-Type Natriuretic Peptide 3820 H Blood Urea Nitrogen 25 H Calcium Level 8.7 Carbon Dioxide Level 34 H Chloride Level 98 Cholesterol Level 176 Cholesterol/HDL Ratio 3.6 Creatinine 1.22 Direct Bilirubin 0.00 Free Thyroxine Index 2.39 Globulin 2.60 Glucose Level 155 HDL Cholesterol 48 Hemoglobin A1c 6.1 H Indirect Bilirubin 0.1 LDL Cholesterol, Calculated 105 Magnesium Level 2.0 Potassium Level 4.5 Sodium Level 139 Thyroid Stimulating Hormone (TSH) 0.235 L Thyroxine (T4) 5.4 L Total Bilirubin 0.1 L Total Protein 5.5 L Triglycerides Level 115 Triiodothyronine (T3) Uptake 44.2 H Medications Medications Current Medications Aspirin (Aspirin) 81 mg DAILY PO Last administered on 04/19/16 08:30; Admin Dose 81 MG; Start 04/17/16 at 09:00 Carisoprodol (Soma) 350 mg BID PO Last administered on 04/19/16 08:39; Admin Dose 350 MG; Start 04/16/16 at 21:00 Carvedilol (Coreg) 25 mg BID PO Last administered on 04/19/16 08:32; Admin Dose 25 MG; Start 04/16/16 at 21:00 Clopidogrel Bisulfate (plaVIX) 75 mg DAILY PO Last administered on 04/19/16 08: 31; Admin Dose 75 MG; Start 04/17/16 at 09:00 Duloxetine HCl (Cymbalta) 60 mg QHS PO Last administered on 04/18/16 21:00; Admin Dose 60 MG; Start 04/16/16 at 21:00 Gabapentin (Neurontin) 300 mg BID PO Last administered on 04/19/16 08:30; Admin Dose 300 MG; Start 04/16/16 at 21:00 Lisinopril (Zestril) 20 mg DAILY PO Last administered on 04/19/16 08:32; Admin Dose 20 MG; Start 04/17/16 at 09:00 Ondansetron HCl (Zofran Inj) 4 mg Q6H PRN IV NAUSEA AND/OR VOMITING; Start 04/16 at 11:30 Acetaminophen (Tylenol Tab) 650 mg Q6H PRN PO PAIN LEVEL 1-3 OR FEVER; Start at 11:30 Morphine Sulfate (morphine) 2 mg Q4H PRN IV PAIN LEVEL 7-10 Last administered on 04/19/16 14:50; Admin Dose 2 MG; Start 04/16/16 at 11:30 Enoxaparin Sodium (Lovenox) 30 mg DAILY SC Last administered on 04/19/16 08:35 ; Admin Dose 30 MG; Start 04/17/16 at 09:00 Guaifenesin/ Dextromethorphan (Robitussin Dm Liquid Cup) 5 ml Q6 PRN PO cough Last administered on 04/19/16 14:49; Admin Dose 5 ML; Start 04/16/16 at 20:30 Temazepam (Restoril) 15 mg HS PRN PO INSOMNIA Last administered on 04/18/16 23: 03; Admin Dose 15 MG; Start 04/16/16 at 20:30 Famotidine (Pepcid) 20 mg Q12 PO Last administered on 04/18/16 21:00; Admin Dose 20 MG; Start 04/17/16 at 21:00 Prednisone (Prednisone) 50 mg DAILY PO Last administered on 04/19/16 08:31; Admin Dose 50 MG; Start 04/18/16 at 09:30 Furosemide (Lasix) 40 mg DAILY PO Last administered on 04/19/16 08:31; Admin Dose 40 MG; Start 04/19/16 at 09:00 Spironolactone (Aldactone) 25 mg DAILY PO Last administered on 04/19/16 08:32; Admin Dose 25 MG; Start 04/18/16 at 16:00 Methimazole (Tapazole) 10 mg DAILY PO ; Start 04/20/16 at 09:00 Atorvastatin Calcium (Lipitor) 40 mg DAILY PO ; Start 04/20/16 at 09:00 DAVID ALVARADO MD Apr 19, 2016 19:08
[2016-04-19] MEDS ORDERED: GLUCOSE GEL 15 GRAM TUBE BUCCAL PRN (19:30)
[2016-04-19] MEDS ORDERED: DEXTROSE 50% 50 ML SYRINGE IV PRN ×2 (19:30)
[2016-04-19] MEDS ORDERED: GLUCAGON 1 MG INJ IM PRN (19:30)
[2016-04-19] MEDS ORDERED: GLUCOSE GEL 15 GRAM TUBE PO PRN ×2 (19:30)
[2016-04-19] MEDS: DULOXETINE 30 MG CAP DR PO SCH (20:33)
[2016-04-19] MEDS: TEMAZEPAM 15 MG CAP PO PRN (23:32)
[2016-04-20] VITALS (13 sets, daily range): BP systolic 118–143; BP diastolic 60–80; PULSE 79–80; RESP 18–20
[2016-04-20] MEDS: morphine 2 MG INJ IV PRN ×2 (00:08→12:06)
[2016-04-20] MEDS: GABAPENTIN 300 MG CAP PO SCH ×2 (08:44→20:13)
[2016-04-20] MEDS: METHIMAZOLE 5 MG TAB PO SCH (08:44)
[2016-04-20] MEDS: ATORVASTATIN 40 MG TAB PO SCH (08:44)
[2016-04-20] MEDS: ASPIRIN 81 MG TAB PO SCH (08:44)
[2016-04-20] MEDS: SPIRONOLACTONE 25 MG TAB PO SCH (08:44)
[2016-04-20] MEDS: CLOPIDOGREL 75 MG TAB PO SCH (08:44)
[2016-04-20] MEDS: predniSONE 50 MG TAB PO SCH (08:44)
[2016-04-20] MEDS: FAMOTIDINE 20 MG TAB PO SCH ×2 (08:45→20:13)
[2016-04-20] MEDS: LISINOPRIL 20 MG TAB PO SCH (08:45)
[2016-04-20] MEDS: FUROSEMIDE 40 MG TAB PO SCH (08:45)
[2016-04-20] MEDS: LINAGLIPTIN 5 MG TABLET PO SCH (08:46)
[2016-04-20] MEDS: ENOXAPARIN 30 MG/0.3 ML SYG SC SCH (08:47)
[2016-04-20] MEDS: GUAIFENESIN/DM 5ML CUP PO PRN (08:50)
[2016-04-20] MEDS: CARISOPRODOL 350 MG TAB PO SCH ×2 (08:50→20:15)
--- NOTE | 2016-04-20 11:46 | PN ---
DATE: 04/20/2016 CARDIOLOGY FOLLOWUP SUBJECTIVE: The patient's breathing has improved. Cough has improved. No chest pain or pres sure. MEDICATIONS: Reviewed. PHYSICAL EXAMINATION: VITAL SIGNS: Temperature 98.4, heart rate of 80, blood pressure 143/77, respiratory rate of 18, sat urating 98%. HEENT: Normocephalic, atraumatic. Pupils are equal. CARDIOVASCULAR: Regular rate and rhythm, systolic murmur. PULMONARY: With mild rhonchi at the bases. GASTROINTESTINAL: Soft, nontender. EXTREMITIES: Trivial lower extremity edema. NEUROLOGIC: Awake and alert. Responds appropriately. PSYCHIATRIC: Appears to be calm now. ASSESSMENT AND PLAN: 1. Congestive heart failure, acute on chronic, currently stable, secondary to systolic and diastoli c dysfunction. 2. Coronary artery disease. 3. History of myocardial infarction. 4. History of percutaneous coronary intervention 5. Dyslipidemia. 6. Hypertension. 7. History of ventricular tachycardia status post ICD placement. 8. Amiodarone-induced thyroid disorder. RECOMMENDATIONS: We will continue with the current cardiac care including high dose of Lipitor. Me thimazole and prednisone are being managed as per endocrine recommendations. We will continue with a daily Lasix dose. Aldactone will be continued as tolerated as well. Carvedilol, Plavix and aspir in will be continued. Dictated By: PEÑA CUBA MD AV/ANN Conf#: [id number] DID#: [id number] CC: RADHA LARKIN MD;*EndCC*
--- NOTE | 2016-04-20 16:44 | PN ---
Date/Time of Note Date/Time of Note DATE: 04/20/16 TIME: 16:41 Assessment/Plan VTE Prophylaxis VTE Prophylaxis Intervention: SCD's Lines/Catheters IV [facility]from [facility] Saline Lock Urinary Cath still in place: No Assessment/Plan Chief Complaint/Hosp Course ASSESSMENT AND PLAN: 1. Acute decompensated congestive heart failure. Dr. Gaxiola is following in cardiology consultation. Continue diuretics. Monitor electrolytes. 2. Amiodarone induced hyperthyroidism. Dr. Aguilar is following in endocrinology consultation. Continue Tapazole and prednisone. 3. Coronary artery disease with history of coronary artery bypass graft. 4. Hypertension. Continue Coreg and lisinopril. 5. Dyslipidemia. Continue statin. 6. Depression by history. Continue Cymbalta. 7. History of ventricular tachycardia in the past, status post ICD placement. 8. Chronic kidney disease. Continue Lovenox for deep venous thrombosis prophylaxis and Pepcid for peptic ulcer disease prophylaxis. Further recommendations based on clinical course. Plan of care discussed with Dr. Hannah. Problems: Subjective 24 Hr Interval Summary Free Text/Dictation Patient denies shortness of breath denies chest pain, no fever, sinus rhythm. Exam/Review of Systems Vital Signs Vitals Vital Signs Date Time Temp Pulse Resp B/P Pulse Ox O2 Delivery O2 Flow Rate FiO2 04/20/16 15:20 98.2 80 18 121/60 96 04/20/16 04:22 Room Air Intake and Output 04/19/16 04/19/16 04/20/16 15:00 23:00 07:00 Intake Total 240 ml Output Total 1600 ml Balance -1360 ml Exam GENERAL: Well-developed, obese male currently is awake, alert. HEENT: Head is atraumatic, normocephalic. PERRLA. NECK: Supple, no cervical lymphadenopathy. JVD is present. LUNGS: Clear bilaterally, slightly diminished at the bases. HEART: Normal S1, S2. No murmurs. Patient has a permanent pacemaker with AICD. ABDOMEN: Protuberant, soft, nondistended, nontender, bowel sounds present. EXTREMITIES: No edema. Normal pulses. NEUROLOGIC: The patient is awake, alert and oriented x4. Results Result Diagram: 04/17/16 0600 04/19/16 0730 Medications Medications Current Medications Aspirin (Aspirin) 81 mg DAILY PO Last administered on 04/20/16t 08:44; Admin Dose 81 MG; Start 04/17/16 at 09:00 Carisoprodol (Soma) 350 mg BID PO Last administered on 04/20/16 08:50; Admin Dose 350 MG; Start 04/16/16 at 21:00 Carvedilol (Coreg) 25 mg BID PO Last administered on 04/20/16 08:45; Admin Dose 25 MG; Start 04/16/16 at 21:00 Clopidogrel Bisulfate (plaVIX) 75 mg DAILY PO Last administered on 04/20/16 08: 44; Admin Dose 75 MG; Start 04/17/16 at 09:00 Duloxetine HCl (Cymbalta) 60 mg QHS PO Last administered on 04/19/16 20:33; Admin Dose 60 MG; Start 04/16/16 at 21:00 Gabapentin (Neurontin) 300 mg BID PO Last administered on 04/20/16 08:44; Admin Dose 300 MG; Start 04/16/16 at 21:00 Lisinopril (Zestril) 20 mg DAILY PO Last administered on 04/20/16 08:45; Admin Dose 20 MG; Start 04/17/16 at 09:00 Ondansetron HCl (Zofran Inj) 4 mg Q6H PRN IV NAUSEA AND/OR VOMITING; Start 04/16 at 11:30 Acetaminophen (Tylenol Tab) 650 mg Q6H PRN PO PAIN LEVEL 1-3 OR FEVER; Start at 11:30 Morphine Sulfate (morphine) 2 mg Q4H PRN IV PAIN LEVEL 7-10 Last administered on 04/20/16 12:06; Admin Dose 2 MG; Start 04/16/16 at 11:30 Enoxaparin Sodium (Lovenox) 30 mg DAILY SC Last administered on 04/20/16 08:47 ; Admin Dose 30 MG; Start 04/17/16 at 09:00 Guaifenesin/ Dextromethorphan (Robitussin Dm Liquid Cup) 5 ml Q6 PRN PO cough Last administered on 04/20/16 08:50; Admin Dose 5 ML; Start 04/16/16 at 20:30 Temazepam (Restoril) 15 mg HS PRN PO INSOMNIA Last administered on 04/19/16 23: 32; Admin Dose 15 MG; Start 04/16/16 at 20:30 Famotidine (Pepcid) 20 mg Q12 PO Last administered on 04/20/16 08:45; Admin Dose 20 MG; Start 04/17/16 at 21:00 Prednisone (Prednisone) 50 mg DAILY PO Last administered on 04/20/16 08:44; Admin Dose 50 MG; Start 04/18/16 at 09:30 Furosemide (Lasix) 40 mg DAILY PO Last administered on 04/20/16 08:45; Admin Dose 40 MG; Start 04/19/16 at 09:00 Spironolactone (Aldactone) 25 mg DAILY PO Last administered on 04/20/16 08:44; Admin Dose 25 MG; Start 04/18/16 at 16:00 Methimazole (Tapazole) 10 mg DAILY PO Last administered on 04/20/16 08:44; Admin Dose 10 MG; Start 04/20/16 at 09:00 Atorvastatin Calcium (Lipitor) 40 mg DAILY PO Last administered on 04/20/16 08: 44; Admin Dose 40 MG; Start 04/20/16 at 09:00 Linagliptin (Tradjenta) 5 mg DAILY PO Last administered on 04/20/16 08:46; Admin Dose 5 MG; Start 04/20/16 at 09:00 Miscellaneous Information 1 ea NOTE XX ; Start 04/19/16 at 19:30 Glucose (Glutose) 15 gm Q15M PRN PO DECREASED GLUCOSE; Start 04/19/16 at 19:30 Glucose (Glutose) 22.5 gm Q15M PRN PO DECREASED GLUCOSE; Start 04/19/16 at 19:30 Dextrose (D50w Syringe) 25 ml Q15M PRN IV DECREASED GLUCOSE; Start 04/19/16 at 19:30 Dextrose (D50w Syringe) 50 ml Q15M PRN IV DECREASED GLUCOSE; Start 04/19/16 at 19:30 Glucagon (Glucagen) 1 mg Q15M PRN IM DECREASED GLUCOSE; Start 04/19/16 at 19:30 Glucose (Glutose) 15 gm Q15M PRN BUCCAL DECREASED GLUCOSE; Start 04/19/16 at 19: 30 JOSE VELASQUEZ Apr 20, 2016 16:44
[2016-04-20] MEDS: DULOXETINE 30 MG CAP DR PO SCH (20:13)
[2016-04-20] MEDS: TEMAZEPAM 15 MG CAP PO PRN (23:11)
[2016-04-21] VITALS (12 sets, daily range): BP systolic 110–145; BP diastolic 65–86; PULSE 80–83; RESP 15–22
[2016-04-21] MEDS: morphine 2 MG INJ IV PRN ×5 (00:27→22:09)
[2016-04-21 06:59] LABS: BASOPHILS % 0.2 % (0.0-2.0); EOSINOPHILS % 0.1 % (0.0-7.0); HEMATOCRIT 35.7 % (42.0-52.0); HEMOGLOBIN 11.8 g/dl (14.0-18.0); LYMPHOCYTES # 1.6 10^3/ul (0.8-2.9); LYMPHOCYTES % 9.5 % (15.0-51.0); MEAN CORPUSCULAR HEMOGLOBIN 29.4 pg (29.0-33.0); MEAN CORPUSCULAR HGB CONC 33.1 g/dl (32.0-37.0); MEAN CORPUSCULAR VOLUME 88.8 fl (82.0-101.0); MEAN PLATELET VOLUME 9.4 fl (7.4-10.4); MONOCYTES % 5.8 % (0.0-11.0); NEUTROPHILS % 84.4 % (39.0-77.0); PLATELET COUNT 249 10^3/UL (140-440); RED BLOOD COUNT 4.02 10^6/ul (4.70-6.10); RED CELL DISTRIBUTION WIDTH 14.5 % (11.5-14.5); UNCORRECTED WBC 16.5 10^3/ul (4.8-10.8); WHITE BLOOD COUNT 16.5 10^3/ul (4.8-10.8)
[2016-04-21 07:13] LABS: POTASSIUM 4.6 mmol/L (3.5-5.1)
[2016-04-21 07:16] LABS: CONDITION 1; CREATININE 1.28 mg/dl (0.61-1.24); LH ANALYZER COMMENTS 1
[2016-04-21 07:17] LABS: CALCIUM 8.9 mg/dl (8.4-10.2)
[2016-04-21] MEDS: FUROSEMIDE 40 MG TAB PO SCH (08:25)
[2016-04-21] MEDS: METHIMAZOLE 5 MG TAB PO SCH (08:25)
[2016-04-21] MEDS: LISINOPRIL 20 MG TAB PO SCH (08:25)
[2016-04-21] MEDS: ATORVASTATIN 40 MG TAB PO SCH (08:25)
[2016-04-21] MEDS: CARISOPRODOL 350 MG TAB PO SCH ×2 (08:26→20:23)
[2016-04-21] MEDS: CLOPIDOGREL 75 MG TAB PO SCH (08:26)
[2016-04-21] MEDS: predniSONE 50 MG TAB PO SCH (08:26)
[2016-04-21] MEDS: GABAPENTIN 300 MG CAP PO SCH ×2 (08:26→20:23)
[2016-04-21] MEDS: LINAGLIPTIN 5 MG TABLET PO SCH (08:26)
[2016-04-21] MEDS: SPIRONOLACTONE 25 MG TAB PO SCH (08:26)
[2016-04-21] MEDS: ASPIRIN 81 MG TAB PO SCH (08:26)
[2016-04-21] MEDS: FAMOTIDINE 20 MG TAB PO SCH ×2 (08:26→20:23)
[2016-04-21] MEDS: ENOXAPARIN 30 MG/0.3 ML SYG SC SCH (08:28)
--- NOTE | 2016-04-21 09:38 | PN ---
Date/Time of Note Date/Time of Note DATE: 04/21/16 TIME: 09:36 Assessment/Plan VTE Prophylaxis VTE Prophylaxis Intervention: LMWH Lines/Catheters IV C[facility]ter Type (from [facility]): Saline Lock Urinary Cath still in place: No Assessment/Plan Assessment/Plan 1. Acute decompensated congestive heart failure. Dr. Gaxiola is following in cardiology consultation. Continue diuretics. Monitor electrolytes. 2. Amiodarone induced hyperthyroidism. Dr. Aguilar is following in endocrinology consultation. Continue Tapazole and prednisone. 3. Coronary artery disease with history of coronary artery bypass graft. 4. Hypertension. Continue Coreg and lisinopril. 5. Dyslipidemia. Continue statin. 6. Depression by history. Continue Cymbalta. 7. History of ventricular tachycardia in the past, status post ICD placement. 8. Chronic kidney disease. 9. Leukocytosis- possibly sec to steroids. pt is afebrile Continue Lovenox for deep venous thrombosis prophylaxis and Pepcid for peptic ulcer disease pro Subjective 24 Hr Interval Summary Eyes: no complaints ENT: no complaints Respiratory: no complaints Cardiovascular: no complaints Gastrointestinal: no complaints Genitourinary: no complaints Musculoskeletal: no complaints Skin: no complaints Neurologic: no complaints Endocrine: no complaints Lymphatic: no complaints Psychological: no complaints Immunologic: no complaints Exam/Review of Systems Vital Signs Vitals Vital Signs Date Time Temp Pulse Resp B/P Pulse Ox O2 Delivery O2 Flow Rate FiO2 04/21/16 08:26 80 04/21/16 07:45 98.5 18 145/83 96 04/20/16 04:22 Room Air Intake and Output 04/20/16 04/20/16 04/21/16 15:00 23:00 07:00 Intake Total 120 ml 220 ml Output Total 300 ml Balance -300 ml 120 ml 220 ml Exam Constitutional: alert, oriented, well developed Psych: nl mood/affect Head: normocephalic Eyes: EOMI, PERRL, nl sclera ENMT: nl external ears & nose Neck: non-tender Respiratory: clear to auscultation Cardiovascular: nl pulses Gastrointestinal: non-tender, soft Musculoskeletal: nl extremities to inspection Extremities: edema (BLE- MILD) 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: nl mental status, nl speech Results Result Diagram: 04/21/16 0547 04/21/16 0547 Results 24 hrs Laboratory Tests Test 04/21/16 05:47 Anion Gap 14 Basophils # 0.0 Basophils % 0.2 Blood Morphology Comment Blood Urea Nitrogen 35 H Calcium Level 8.9 Carbon Dioxide Level 29 Chloride Level 99 Creatinine 1.28 H Eosinophils # 0.0 Eosinophils % 0.1 Glucose Level 128 Hematocrit 35.7 L Hemoglobin 11.8 L Lymphocytes # 1.6 Lymphocytes % 9.5 L Mean Corpuscular Hemoglobin 29.4 Mean Corpuscular Hemoglobin Concent 33.1 Mean Corpuscular Volume 88.8 Mean Platelet Volume 9.4 Monocytes # 1.0 H Monocytes % 5.8 Neutrophils # 14.0 H Neutrophils % 84.4 H Nucleated Red Blood Cells # 0.0 Nucleated Red Blood Cells % 0.0 Platelet Count 249 # Potassium Level 4.6 Red Blood Count 4.02 L Red Cell Distribution Width 14.5 Sodium Level 137 White Blood Count 16.5 #H Medications Medications Current Medications Aspirin (Aspirin) 81 mg DAILY PO Last administered on 04/21/16 08:26; Admin Dose 81 MG; Start 04/17/16 at 09:00 Carisoprodol (Soma) 350 mg BID PO Last administered on 04/21/16 08:; Admin Dose 350 MG; Start 04/16/16 at 21:00 Carvedilol (Coreg) 25 mg BID PO Last administered on 04/21/16 08:26; Admin Dose 25 MG; Start 04/16/16 at 21:00 Clopidogrel Bisulfate (plaVIX) 75 mg DAILY PO Last administered on 04/21/16 08: 26; Admin Dose 75 MG; Start 04/17/16 at 09:00 Duloxetine HCl (Cymbalta) 60 mg QHS PO Last administered on 04/20/16 20:13; Admin Dose 60 MG; Start 04/16/16 at 21:00 Gabapentin (Neurontin) 300 mg BID PO Last administered on 04/21/16 08:26; Admin Dose 300 MG; Start 04/16/16 at 21:00 Lisinopril (Zestril) 20 mg DAILY PO Last administered on 04/21/16 08:25; Admin Dose 20 MG; Start 04/17/16 at 09:00 Ondansetron HCl (Zofran Inj) 4 mg Q6H PRN IV NAUSEA AND/OR VOMITING; Start 04/16 at 11:30 Acetaminophen (Tylenol Tab) 650 mg Q6H PRN PO PAIN LEVEL 1-3 OR FEVER; Start at 11:30 Morphine Sulfate (morphine) 2 mg Q4H PRN IV PAIN LEVEL 7-10 Last administered on 04/21/16 05:19; Admin Dose 2 MG; Start 04/16/16 at 11:30 Enoxaparin Sodium (Lovenox) 30 mg DAILY SC Last administered on 04/21/16 08:28 ; Admin Dose 30 MG; Start 04/17/16 at 09:00 Guaifenesin/ Dextromethorphan (Robitussin Dm Liquid Cup) 5 ml Q6 PRN PO cough Last administered on 04/20/16 08:50; Admin Dose 5 ML; Start 04/16/16 at 20:30 Temazepam (Restoril) 15 mg HS PRN PO INSOMNIA Last administered on 04/20/16 23: 11; Admin Dose 15 MG; Start 04/16/16 at 20:30 Famotidine (Pepcid) 20 mg Q12 PO Last administered on 04/21/16 08:26; Admin Dose 20 MG; Start 04/17/16 at 21:00 Prednisone (Prednisone) 50 mg DAILY PO Last administered on 04/21/16 08:26; Admin Dose 50 MG; Start 04/18/16 at 09:30 Furosemide (Lasix) 40 mg DAILY PO Last administered on 04/21/16 08:25; Admin Dose 40 MG; Start 04/19/16 at 09:00 Spironolactone (Aldactone) 25 mg DAILY PO Last administered on 04/21/16 08:26; Admin Dose 25 MG; Start 04/18/16 at 16:00 Methimazole (Tapazole) 10 mg DAILY PO Last administered on 04/21/16 08:25; Admin Dose 10 MG; Start 04/20/16 at 09:00 Atorvastatin Calcium (Lipitor) 40 mg DAILY PO Last administered on 04/21/16 08: 25; Admin Dose 40 MG; Start 04/20/16 at 09:00 Linagliptin (Tradjenta) 5 mg DAILY PO Last administered on 04/21/16 08:26; Admin Dose 5 MG; Start 04/20/16 at 09:00 Miscellaneous Information 1 ea NOTE XX ; Start 04/19/16 at 19:30 Glucose (Glutose) 15 gm Q15M PRN PO DECREASED GLUCOSE; Start 04/19/16 at 19:30 Glucose (Glutose) 22.5 gm Q15M PRN PO DECREASED GLUCOSE; Start 04/19/16 at 19:30 Dextrose (D50w Syringe) 25 ml Q15M PRN IV DECREASED GLUCOSE; Start 04/19/16 at 19:30 Dextrose (D50w Syringe) 50 ml Q15M PRN IV DECREASED GLUCOSE; Start 04/19/16 at 19:30 Glucagon (Glucagen) 1 mg Q15M PRN IM DECREASED GLUCOSE; Start 04/19/16 at 19:30 Glucose (Glutose) 15 gm Q15M PRN BUCCAL DECREASED GLUCOSE; Start 04/19/16 at 19: 30 THOMAS DYER Apr 21, 2016 09:38
--- NOTE | 2016-04-21 11:39 | PN ---
DATE: 04/21/2016 CARDIOLOGY FOLLOWUP SUBJECTIVE: Discussed with the staff, discussed with Dr. Russ Napoles, RADIATOR CLEANER. The patient with no chest pain or pressure. No palpitation. Breathing has improved. Cough has sig nificantly improved. Rhythm strip was reviewed. Remains in sinus rhythm with episodes of very short asymptomatic nonsustained VT. MEDICATIONS: Reviewed as per medical reconciliation, personally reviewed. PHYSICAL EXAMINATION: VITAL SIGNS: Temperature 98.5, heart rate of 80, blood pressure 145/83, respiration rate of 18, sat urating 96%. HEENT: Normocephalic, atraumatic. Pupils are equal. CARDIOVASCULAR: Regular rate and rhythm, systolic murmur grade I. PULMONARY: With no wheezes or rhonchi. GASTROINTESTINAL: Soft, obese, nontender. EXTREMITIES: With trivial lower extremity edema. NEUROLOGIC: Awake and alert. PSYCHIATRIC: Calm, pleasant. LABORATORY: WBC of 16.5, hemoglobin 11.8, platelets 249. Sodium 137, potassium 4.6, BUN of 35, cre atinine 1.28, glucose of 128. ASSESSMENT AND PLAN: 1. Congestive heart failure, currently stable but controlled. 2. History of coronary artery disease. 3. History of ventricular tachycardia status post ICD. 4. Hyperthyroidism. 5. Dyslipidemia. 6. Hypertension. RECOMMENDATIONS: We will continue with the current cardiac care. Discharge planning as per interna l medicine. The patient about to follow up with me as an outpatient as well. Dictated By: PEÑA CUBA MD AV/ANN Conf#: [id number] DID#: [id number] CC: RADHA LARKIN MD;*EndCC*
[2016-04-21] MEDS: GUAIFENESIN/DM 5ML CUP PO PRN (18:24)
[2016-04-21] MEDS: DULOXETINE 30 MG CAP DR PO SCH (20:23)
[2016-04-21] MEDS: TEMAZEPAM 15 MG CAP PO PRN (23:11)
[2016-04-22] VITALS (11 sets, daily range): BP systolic 116–132; BP diastolic 57–73; PULSE 77–81; RESP 15–18
[2016-04-22] MEDS: morphine 2 MG INJ IV PRN ×2 (04:59→12:19)
[2016-04-22 06:36] LABS: ADD SCAN DIFF NO
[2016-04-22 07:07] LABS: POTASSIUM 4.4 mmol/L (3.5-5.1)
[2016-04-22 07:09] LABS: CREATININE 1.53 mg/dl (0.61-1.24)
[2016-04-22 07:10] LABS: CALCIUM 8.8 mg/dl (8.4-10.2)
[2016-04-22] MEDS: LINAGLIPTIN 5 MG TABLET PO SCH (08:38)
[2016-04-22] MEDS: ATORVASTATIN 40 MG TAB PO SCH (08:39)
[2016-04-22] MEDS: FAMOTIDINE 20 MG TAB PO SCH (08:39)
[2016-04-22] MEDS: LISINOPRIL 20 MG TAB PO SCH (08:39)
[2016-04-22] MEDS: ASPIRIN 81 MG TAB PO SCH (08:39)
[2016-04-22] MEDS: predniSONE 50 MG TAB PO SCH (08:39)
[2016-04-22] MEDS: GABAPENTIN 300 MG CAP PO SCH (08:39)
[2016-04-22] MEDS: SPIRONOLACTONE 25 MG TAB PO SCH (08:40)
[2016-04-22] MEDS: CLOPIDOGREL 75 MG TAB PO SCH (08:40)
[2016-04-22] MEDS: FUROSEMIDE 40 MG TAB PO SCH (08:40)
[2016-04-22] MEDS: METHIMAZOLE 5 MG TAB PO SCH (08:43)
[2016-04-22] MEDS: CARISOPRODOL 350 MG TAB PO SCH (08:51)
[2016-04-22] MEDS: ENOXAPARIN 30 MG/0.3 ML SYG SC SCH (08:58)
[2016-04-22 10:23] LABS: BASOPHILS % 0.2 % (0.0-2.0); EOSINOPHILS # 0.1 10^3/ul (0.0-0.5); EOSINOPHILS % 0.4 % (0.0-7.0); HEMATOCRIT 37.7 % (42.0-52.0); HEMOGLOBIN 11.4 g/dl (14.0-18.0); LYMPHOCYTES # 2.2 10^3/ul (0.8-2.9); LYMPHOCYTES % 13.4 % (15.0-51.0); MEAN CORPUSCULAR HEMOGLOBIN 28.6 pg (29.0-33.0); MEAN CORPUSCULAR HGB CONC 30.2 g/dl (32.0-37.0); MEAN CORPUSCULAR VOLUME 94.5 fl (82.0-101.0); MEAN PLATELET VOLUME 11.3 fl (7.4-10.4); MONOCYTE # 1.4 10^3/ul (0.3-0.9); MONOCYTES % 8.4 % (0.0-11.0); NEUTROPHIL # 12.5 10^3/ul (1.6-7.5); NEUTROPHILS % 76.7 % (39.0-77.0); PLATELET COUNT 285 10^3/UL (140-415); RED BLOOD COUNT 3.99 10^6/ul (4.70-6.10); WHITE BLOOD COUNT 16.3 10^3/ul (4.8-10.8)
[2016-04-22] MEDS ORDERED: TAP5 PO (12:34)
[2016-04-22] MEDS ORDERED: PRED50 PO (12:34)
[2016-04-22] MEDS ORDERED: ATOR40TA68 PO (12:34)
[2016-04-22] MEDS ORDERED: LINA5TAB PO (12:34)
--- NOTE | 2016-04-22 17:48 | PN ---
DATE: 04/22/2016 CARDIOLOGY FOLLOWUP SUBJECTIVE: No new cardiac event. No chest pain or pressure, breathing has improved. Rhythm strip remains in sinus rhythm with frequent PVCs. MEDICATIONS: Reviewed. PHYSICAL EXAMINATION: VITAL SIGNS: Temperature 97.9, heart rate 77, blood pressure 127/57, respiration rate of 18, satura ting 97%. HEENT: Normocephalic, atraumatic. Pupils are equal. CARDIOVASCULAR: Regular rate and rhythm with systolic murmur. PULMONARY: With no wheezes. GASTROINTESTINAL: Soft, nontender. EXTREMITIES: With trivial edema. NEUROLOGIC: Awake, responds appropriately. LABORATORY: WBC of 16.3, hemoglobin 11.4, platelet of 285. Sodium 138, potassium 4.4, BUN of 40, c reatinine 1.53. ASSESSMENT AND PLAN: 1. Congestive heart failure, currently well controlled. 2. Coronary artery disease, no history of myocardial infarction, history of percutaneous coronary i ntervention or history of coronary bypass. 3. History of ventricular tachycardia, implantable cardioverter defibrillator placement. 4. Thyroid disorder. 5. Dyslipidemia. 6. Hypertension. RECOMMENDATIONS: The patient currently appears to be stable from the cardiac standpoint. He is on a stable p.o. regimen. Discharge planning is in process. The patient advised to call my office to schedule for outpatient followup within the next 1 to 2 weeks. Dictated By: PEÑA CUBA MD AV/ANN Conf#: [id number] DID#: [id number] CC: RADHA LARKIN MD;*End*
--- NOTE | 2016-04-25 03:00 | DS ---
DATE OF ADMISSION: 04/16/2016 DATE OF DISCHARGE: 04/22/2016 FINAL DIAGNOSES: 1. Acute decompensated congestive heart failure. 2. Amiodarone-induced hyperthyroidism. 3. Coronary artery disease with history of coronary artery bypass graft. 4. Hypertension. 5. Dyslipidemia. 6. Depression by history. 7. History of ventricular tachycardia, status post ICD placement. 8. Chronic kidney disease. 9. Obesity. BRIEF HISTORY: The patient is a 65-year-old gentleman who presented to the emergency room due to wo rsening of dyspnea for the last 4 days. Patient also with orthopnea, paroxysmal nocturnal dyspnea. The patient underwent evaluation in the emergency room and was noted to have congestive heart failu re. The patient was admitted for further evaluation and management. HOSPITAL COURSE: The patient was evaluated by Dr. Marcelino and Dr. Gaxiola in cardiology consultation. The patient was given diuretics for congestive heart failure exacerbation, was started on suppleme ntal oxygen. The patient was also evaluated by Dr. Aguilar and restarted on prednisone and methimaz ole for amiodarone-induced hyperthyroidism, which was titrated. The patient was also started on Tra djenta for hyperglycemia while patient is on steroids. The patient was followed by Dr. Gaxiola in ca rdiology consultation. The patient's renal function was closely monitored. Patient's condition imp roved. The patient denied any shortness of breath, denied any chest pain. The patient also was anna luated for possible viral illness. Patient's influenza A and B swabs were found to be negative. Th e patient's blood cultures were negative. The patient was discharged home. CONDITION ON DISCHARGE: Remained medically stable. ACTIVITY: As patient tolerates. DIET: A 2 g sodium, low fat, low cholesterol diet. DISCHARGE MEDICATIONS: The patient is given prescriptions of: 1. Prednisone 50 mg p.o. daily. 2. Methimazole 10 mg p.o. daily. 3. Tradjenta 5 mg p.o. daily. 4. Atorvastatin 40 mg p.o. daily. Patient is to continue with: 1. Aspirin. 2. Carisoprodol. 3. Coreg. 4. Clonidine. 5. Plavix. 5. Duloxetine. 6. Gabapentin. 7. Lisinopril. 8. Temazepam. RECOMMENDATIONS: Patient instructed to follow up with Dr. Gaxiola in cardiology consultation. The p atient is to follow up with Dr. Aguilar in endocrinology consultation. Plan of care was discussed an d to follow up with his primary care physician in 1 to 2 weeks. Interdisciplinary plan of care was established for this patient. Plan of care was discussed with Dr. Larkin. Dictated By: JOSE VELASQUEZ INVESTMENT TRADER for RADHA LARKIN MD SR/NTS Conf#: [id number] DID#: [id number]
== END 2016-04-22 19:40 | disposition home health service (06) | DRG 293 ==
LOC: E/R 01:36 → TEL 06:01
PROVIDERS: ADMIT Internal Medicine; ATTEND Internal Medicine
DX: I50.43 Acute on chronic combined systolic (congestive) and diastolic (congestive) heart failure (principal); Z95.1 Presence of aortocoronary bypass graft; I12.9 Hypertensive chronic kidney disease with stage 1 through stage 4 chronic kidney disease, or unspecified chronic kidney disease; E78.5 Hyperlipidemia, unspecified; E05.80 Other thyrotoxicosis without thyrotoxic crisis or storm; N18.9 Chronic kidney disease, unspecified; E66.9 Obesity, unspecified; Z68.33 Body mass index [BMI] 33.0-33.9, adult; E78.00 Pure hypercholesterolemia, unspecified; I25.10 Atherosclerotic heart disease of native coronary artery without angina pectoris; E05.90 Thyrotoxicosis, unspecified without thyrotoxic crisis or storm; D64.9 Anemia, unspecified; Z95.810 Presence of automatic (implantable) cardiac defibrillator; Z79.82 Long term (current) use of aspirin
CPT/HCPCS: 36415; 71010; 80048; 80053; 80061; 81003; 82962; 83036; 83605; 83735; 83880; 84436; 84443; 84479; 84484; 85025; 85610; 85730; 87040; 87086; 87400; 93005; 96374; J1650; J1940; J2270; J7512

== ENCOUNTER 2016-09-17 02:15 | Inpatient (IN) | payer MEDICARE, BC ==
[~2016-09-17] VITALS: Ht 175.3 cm; Wt 110.8 kg
[2016-09-17] VITALS (10 sets, daily range): BP systolic 109–142; BP diastolic 55–73; PULSE 69–89; RESP 16–20; Ht 175.3 cm; Wt 110.8 kg
[~2016-09-17 02:15] MED LIST changes: -AMIO200T2 PO; -ATOR20TA38 PO; +ATOR40TA68 PO; +LINA5TAB PO; +METH-493 PO; +PRED50 PO
--- NOTE | 2016-09-17 02:19 | ERA ---
ER Documentation Chief Complaint Date/Time DATE: 09/17/16 TIME: 02:18 Chief Complaint Low blood pressure HPI The patient is a 66-year-old male, presenting to the ER because of low blood pressures and generalized weakness that began about 7 PM yesterday. He contacted his doctor and was asked to drink a lot of fluid and stop his medication. He did not get better, therefore he called 911 to bring him to the hospital. He complains of dyspnea with exertion, denies fever, chills, syncope , near syncope, neck pain, chest pain, abdominal pain, vomiting, dysuria, diarrhea. He does not smoke nor drink, use 2 L nasal cannula as needed Past medical history: Depression, chronic low back pain, history of CHF, hyperthyroidism, CAD, hypertension, dyslipidemia, history of ventricular tachycardia, chronic kidney disease Past surgical history: CABG, AICD, stent PCI ROS All systems reviewed and are negative except as per history of present illness. Medications Home Meds Active Scripts Atorvastatin* (Atorvastatin*) 40 Mg Tablet, 40 MG PO DAILY for 30 Days, TAB Prov:JOSE VELASQUEZ 04/22/16 Methimazole* (Methimazole*) 5 Mg Tablet, 10 MG PO DAILY for 30 Days, TAB Prov:JOSE VELASQUEZ 04/22/16 Prednisone (Prednisone) 50 Mg Tab, 50 MG PO DAILY for 14 Days, TAB Prov:JOSE VELASQUEZ 04/22/16 Linagliptin (TRADJENTA) 5 Mg Tablet, 5 MG PO DAILY for 30 Days, TAB Prov:JOSE VELASQUEZ 04/22/16 Carvedilol* (Coreg*) 25 Mg Tab, 25 MG PO BID for 30 Days, TAB Prov:JOSE VELASQUEZ 07/15/15 Aspirin (Aspirin) 81 Mg Chew, 81 MG PO DAILY for 30 Days Prov:LINDA ARDON 12/22/14 Reported Medications Lisinopril* (Lisinopril*) 20 Mg Tablet, 20 MG PO DAILY, #30 TAB 03/26/16 Duloxetine Hcl* (Duloxetine Hcl*) 60 Mg Capsule.dr, 60 MG PO QHS, #30 CAP 03/26/16 Gabapentin* (Gabapentin*) 300 Mg Capsule, 300 MG PO BID, #60 CAP 03/26/16 Carisoprodol* (Carisoprodol*) 350 Mg Tablet, 350 MG PO BID, TAB 06/12/15 Clopidogrel Bisulfate (Clopidogrel) 75 Mg Tablet, 75 MG PO DAILY, #30 TAB 02/17/15 Clonidine Hcl (KAPVAY) 0.1 Mg Tab.er.12h, 0.1 MG PO BID Y for ELEVATED BLOOD PRESSURE GIVE IF BLOOD PRESSURE IS 150/90 11/12/12 Discontinued Reported Medications Zinc Oxide/Petrolatum,White (Remedy Phytoplex Z-Guard Paste) 113 Gm Paste..g., 113 GM TP DAILY 03/26/16 Temazepam* (Temazepam*) 15 Mg Capsule, 15 MG PO HS Y for INSOMNIA, CAP 03/26/16 Allergies Allergies: Coded Allergies: No Known Allergy (Unverified , 09/17/16) PMhx/Soc History of Surgery: Yes (10/14 x5 CABG, stents, AICD) Anesthesia Reaction: No Hx 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 Disorder: Yes (depression, chronic back pain, leg pains) Hx Respiratory Disorders: No Hx Cardiac Disorders: Yes (see surgery above) Hx Psychiatric Problems: Yes (depression) Hx Miscellaneous Medical Probl: No Hx Alcohol Use: No Hx Substance Use: No Hx Tobacco Use: No Physical Exam Vitals Vital Signs Date Time Temp Pulse Resp B/P Pulse Ox O2 Delivery O2 Flow Rate FiO2 09/17/16 03:26 83 22 99/50 99 Nasal Cannula 2.0 09/17/16 02:55 Nasal Cannula 2 09/17/16 02:55 80 22 114/58 99 Nasal Cannula 2.0 09/17/16 02:18 98.9 98 22 97/55 97 Physical Exam Const: No acute distress. Dehydrated Head: Atraumatic. Eyes: Normal Conjunctiva. ENT: Normal External Ears, Nose and Mouth. Neck: Full range of motion. No meningismus. Resp: Clear to auscultation bilaterally. Cardio: Regular tachycardic Abd: Soft, non distended, normal bowel sounds, non tender. Skin: No petechiae or rashes. Back: No midline or flank tenderness. Ext: No cyanosis, or edema. Neur: Awake and alert. No focal deficit Psych: Normal Mood and Affect. Result Diagram: 09/17/16 0250 09/17/16 0250 Results 24 hrs Laboratory Tests Test 09/17/16 02:50 White Blood Count 13.010^3/ul Red Blood Count 4.5510^6/ul Hemoglobin 12.7g/dl Hematocrit 41.7% Mean Corpuscular Volume 91.6fl Mean Corpuscular Hemoglobin 27.9pg Mean Corpuscular Hemoglobin Concent 30.5g/dl Red Cell Distribution Width 14.8% Platelet Count 28687^3/UL Mean Platelet Volume 9.9fl Neutrophils % 70.6% Lymphocytes % 15.7% Monocytes % 11.8% Eosinophils % 0.7% Basophils % 0.4% Nucleated Red Blood Cells % 0.0/100WBC Neutrophils # 9.210^3/ul Lymphocytes # 2.110^3/ul Monocytes # 1.510^3/ul Eosinophils # 0.110^3/ul Basophils # 0.110^3/ul Nucleated Red Blood Cells # 0.010^3/ul Prothrombin Time 13.6Sec Prothrombin Time Ratio 1.1 INR International Normalized Ratio 1.04 Activated Partial Thromboplast Time 26.6Sec Sodium Level 143mmol/L Potassium Level 3.1mmol/L Chloride Level 104mmol/L Carbon Dioxide Level 26mmol/L Anion Gap 16 Blood Urea Nitrogen 26mg/dl Creatinine 2.62mg/dl Glucose Level 141mg/dl Calcium Level 9.4mg/dl Total Bilirubin 0.1mg/dl Direct Bilirubin 0.00mg/dl Indirect Bilirubin 0.1mg/dl Aspartate Amino Transf (AST/SGOT) 16IU/L Alanine Aminotransferase (ALT/SGPT) 22IU/L Alkaline Phosphatase 140IU/L Troponin I 0.049ng/ml B-Type Natriuretic Peptide 3560PG/ML Total Protein 7.0g/dl Albumin 4.6g/dl Globulin 2.40g/dl Albumin/Globulin Ratio 1.91 Current Medications Medications (Trade) Dose Ordered Sig/Juancarlos Route PRN Reason Start Time Stop Time Status Last Admin Dose Admin Sodium Chloride (NS) 500 ml @ 500 mls/hr Q1H ONCE IV 09/17/16 03:30 09/17/16 04:29 DC 09/17/16 03:28 Potassium Chloride (Klor-Con 10) 10 meq ONCE ONCE PO 09/17/16 04:30 09/17/16 04:31 DC Procedures/MDM EKG: Read by emergency physician Rate/Rhythm: Normal Sinus Rhythm 80 beats/min QRS, ST, T-waves: No ST elevation, no T inversion, right bundle branch block , inferior lateral T abnormality Impression: Abnormal EKG [place] [id number] Radiology Main Line: [phone] DIAGNOSTIC IMAGING REPORT Patient: DAVID ESPINO : 1950 Age: 66 Sex: M MR #: [id number] DOS: 09/17/16 0226 Ordering MD: DAVID POLO MD Location: E/R Room/Bed: PROCEDURE: XR Chest. CLINICAL INDICATION: Shortness of breath TECHNIQUE: Single frontal view of the chest was obtained COMPARISON: 04/16/2016 FINDINGS: The heart is not enlarged. Sternal wires. Dual chamber ICD again seen. There is minimal prominence of the lung interstitium likely minimal chronic changes. There is no pleural effusion or pneumothorax. IMPRESSION: No acute disease. RPTAT: HJES .Patrick Conde MD, MD Date Time Electronically viewed and signed by .Patrick Conde MD, MD on 09/17/2016 03:55 .S/ CC: DAVID POLO MD MEDICAL MAKING DECISION: The patient is a 66-year-old male, presenting to the ER because of acute dehydration, acute and chronic kidney injury,acute hypokalemia. Last creatinine on April 22, 2016 was 1.5. he was treated with 500 mL of normal saline for acute dehydration and potassium chloride 10 mg p.o. for acute hyperkalemia with good response. Urinalysis pending The differential diagnoses considered include but are not limited to pneumonia, cystitis, electrolyte imbalance, TIA Departure Diagnosis: Primary Impression: Dehydration Additional Impressions: Acute hypokalemia [id number] kidney injury Anemia Condition: Stable Comments I discussed the findings with the patient. I discussed the patient with his physician Dr. Glasgow who was made aware of the lab, the treatment, the patient condition. The patient is admitted to telemetry at 4:20 am DAVID POLO MD Sep 17, 2016 02:19
[2016-09-17 03:03] LABS: ADD SCAN DIFF NO
[2016-09-17 03:06] LABS: ABNORMAL IP MESSAGE 1; BASOPHIL # 0.1 10^3/ul (0.0-0.1); BASOPHILS % 0.4 % (0.0-2.0); EOSINOPHILS # 0.1 10^3/ul (0.0-0.5); EOSINOPHILS % 0.7 % (0.0-7.0); HEMATOCRIT 41.7 % (42.0-52.0); HEMOGLOBIN 12.7 g/dl (14.0-18.0); LYMPHOCYTES # 2.1 10^3/ul (0.8-2.9); LYMPHOCYTES % 15.7 % (15.0-51.0); MEAN CORPUSCULAR HEMOGLOBIN 27.9 pg (29.0-33.0); MEAN CORPUSCULAR HGB CONC 30.5 g/dl (32.0-37.0); MEAN CORPUSCULAR VOLUME 91.6 fl (82.0-101.0); MEAN PLATELET VOLUME 9.9 fl (7.4-10.4); MONOCYTE # 1.5 10^3/ul (0.3-0.9); MONOCYTES % 11.8 % (0.0-11.0); NEUTROPHIL # 9.2 10^3/ul (1.6-7.5); NEUTROPHILS % 70.6 % (39.0-77.0); PLATELET COUNT 355 10^3/UL (140-415); RED BLOOD COUNT 4.55 10^6/ul (4.70-6.10); RED CELL DISTRIBUTION WIDTH 14.8 % (11.5-14.5)
[2016-09-17 03:24] LABS: INR 1.04; PARTIAL THROMBOPLASTIN TIME 26.6 Sec (25.0-35.0); PROTIME 13.6 Sec (12.2-14.2); PT RATIO 1.1
[2016-09-17] MEDS ORDERED: SOD CHLORIDE 0.9% 500 ML IV ONE (03:30)
[2016-09-17 03:31] LABS: ALBUMIN 4.6 g/dl (3.3-4.9); ALBUMIN/GLOBULIN RATIO 1.91; BILIRUBIN,INDIRECT 0.1 mg/dl (0-1.1); BILIRUBIN,TOTAL 0.1 mg/dl (0.2-1.3); CALCIUM 9.4 mg/dl (8.4-10.2); CREATININE 2.62 mg/dl (0.61-1.24); POTASSIUM 3.1 mmol/L (3.5-5.1)
[2016-09-17 03:42] LABS: TROPONIN-I 0.049 ng/ml (0.00-0.12)
--- NOTE | 2016-09-17 03:55 | RADRPT ---
PROCEDURE: XR Chest. CLINICAL INDICATION: Shortness of breath TECHNIQUE: Single frontal view of the chest was obtained COMPARISON: 04/16/2016 FINDINGS: The heart is not enlarged. Sternal wires. Dual chamber ICD again seen. There is minimal prominence of the lung interstitium likely minimal chronic changes. There is no pleural effusion or pneumothorax. IMPRESSION: No acute disease. RPTAT: HJES .Patrick Cnode MD, MD Date Time Electronically viewed and signed by .Patrick Conde MD, MD on 09/17/2016 03:55 .S/
[2016-09-17] MEDS ORDERED: POTASSIUM CHLORIDE (SR) 10 MEQ TAB PO ONE (04:30)
[2016-09-17] MEDS: SOD CHLORIDE 0.9% 1,000 ML IV SCH ×2 (07:43→17:24)
[2016-09-17] MEDS: LINAGLIPTIN 5 MG TABLET PO SCH (08:41)
[2016-09-17] MEDS: ASPIRIN 81 MG TAB PO SCH (08:41)
[2016-09-17] MEDS: CLOPIDOGREL 75 MG TAB PO SCH (08:41)
[2016-09-17] MEDS: GABAPENTIN 300 MG CAP PO SCH ×2 (08:41→21:01)
[2016-09-17] MEDS: LISINOPRIL 20 MG TAB PO SCH (08:42)
[2016-09-17] MEDS: predniSONE 1 MG TAB PO SCH (08:42)
[2016-09-17] MEDS: METHIMAZOLE 5 MG TAB PO SCH (08:45)
[2016-09-17] MEDS: CARISOPRODOL 350 MG TAB PO PRN (11:52)
--- NOTE | 2016-09-17 12:13 | HP ---
Date/Time of Note Date/Time of Note DATE: 09/17/16 TIME: 12:11 Assessment/Plan VTE Prophylaxis VTE Prophylaxis Intervention: other Lines/Catheters IV [facility] Type (from [facility] Saline Lock Assessment/Plan Chief Complaint/Hosp Course 1) hypotension - intravenous fluids - rule out sepsis 2) coronary artery disease - appears to be stable Problems: HPI/ROS Admit Date/Time Admit Date/Time Sep 17, 2016 at 04:20 Hx of Present Illness Patient with hypertension, coronary artery disease, chronic back pain comes with weakness and hypotension. Patient was found to be hypotensive and weakness. Patient will be admitted for intravenous fluids and further evaluation to rule out evidence of sepsis PMH/Family/Social Past Medical History Medical History: coronary artery disease, hypertension Past Surgical History Past Surgical Hx: coronary bypass surgery, other Social History Smoking Status: Former smoker Exam/Review of Systems Vital Signs Vitals Vital Signs Date Time Temp Pulse Resp B/P Pulse Ox O2 Delivery O2 Flow Rate FiO2 09/17/16 11:39 98.6 78 19 138/72 98 09/17/16 05:30 Nasal Cannula 2.0 Intake and Output 09/16/16 09/16/16 09/17/16 15:00 23:00 07:00 Intake Total 180 ml Balance 180 ml Exam Constitutional: well developed Head: atraumatic, normocephalic Neck: supple Respiratory: clear to auscultation Cardiovascular: regular rate and rhythm Gastrointestinal: non-tender, soft Extremities: normal pulses Labs Result Diagram: 09/17/16 0250 09/17/16 0250 Medications Medications Current Medications Aspirin (Aspirin) 81 mg DAILY PO Last administered on 09/17/16 08:41; Admin Dose 81 MG; Start 09/17/16 at 09:00 Carvedilol (Coreg) 25 mg BID PO Last administered on 09/17/16 08:42; Admin Dose 25 MG; Start 09/17/16 at 09:00 Linagliptin (Tradjenta) 5 mg DAILY PO Last administered on 09/17/16 08:41; Admin Dose 5 MG; Start 09/17/16 at 09:00 Prednisone (Prednisone) 4 mg DAILY PO Last administered on 09/17/16 08:42; Admin Dose 4 MG; Start 09/17/16 at 09:00 Atorvastatin Calcium (Lipitor) 40 mg HS PO ; Start 09/17/16 at 21:00 Clonidine (Catapres) 0.1 mg BID PRN PO ELEVATED BLOOD PRESSURE; Start 09/17/16 at 07:00 Clopidogrel Bisulfate (plaVIX) 75 mg DAILY PO Last administered on 09/17/16 08: 41; Admin Dose 75 MG; Start 09/17/16 at 09:00 Carisoprodol (Soma) 350 mg Q8H PRN PO MUSCLE SPASMS Last administered on 11:52; Admin Dose 350 MG; Start 09/17/16 at 07:00 Gabapentin (Neurontin) 300 mg BID PO Last administered on 09/17/16 08:41; Admin Dose 300 MG; Start 09/17/16 at 09:00 Duloxetine HCl (Cymbalta) 60 mg HS PO ; Start 09/17/16 at 21:00 Lisinopril 20 mg 20 mg DAILY PO Last administered on 09/17/16 08:42; Admin Dose 20 MG; Start 09/17/16 at 09:00 Sodium Chloride (NS) 1,000 ml @ 100 mls/hr Q10H IV Last administered on 07:43; Admin Dose 100 MLS/HR; Start 09/17/16 at 07:30 KINGA SALDAÑA Sep 17, 2016 12:13
[2016-09-17] MEDS: DULOXETINE 30 MG CAP DR PO SCH (21:01)
[2016-09-17] MEDS: ATORVASTATIN 40 MG TAB PO SCH (21:02)
[2016-09-17 21:25] LABS: ADD UMIC YES; UR ASCORBIC ACID NEGATIVE (NEGATIVE); UR BILIRUBIN (Dip) NEGATIVE (NEGATIVE); UR BLOOD (Dip) NEGATIVE (NEGATIVE); UR CLARITY SLIGHTLY CLOUDY (CLEAR); UR COLOR YELLOW (YELLOW); UR GLUCOSE (Dip) NEGATIVE (NEGATIVE); UR KETONES (Dip) NEGATIVE (NEGATIVE); UR LEUKOCYTE ESTERASE (Dip) NEGATIVE Leu/ul (NEGATIVE); UR MUCUS FEW /HPF (NONE SEEN); UR NITRITE (Dip) NEGATIVE (NEGATIVE); UR RBC 2 /HPF (0-5); UR SPECIFIC GRAVITY (Dip) 1.024 (1.003-1.030); UR TOTAL PROTEIN (Dip) 1+ mg/dl (NEGATIVE); UR UROBILINOGEN (Dip) NEGATIVE (NEGATIVE)
[2016-09-17] MEDS ORDERED: ZOLPIDEM 5 MG TAB PO PRN (23:30)
[2016-09-17] MEDS: TEMAZEPAM 15 MG CAP PO PRN (23:55)
[2016-09-18] VITALS (14 sets, daily range): BP systolic 125–187; BP diastolic 66–83; PULSE 69–76; RESP 18–20
[2016-09-18] MEDS: SOD CHLORIDE 0.9% 1,000 ML IV SCH ×3 (03:01→22:32)
[2016-09-18] MEDS: METHIMAZOLE 5 MG TAB PO SCH (06:24)
[2016-09-18 07:34] LABS: ADD SCAN DIFF NO
[2016-09-18 07:47] LABS: BASOPHIL # 0.1 10^3/ul (0.0-0.1); BASOPHILS % 0.5 % (0.0-2.0); EOSINOPHILS # 0.2 10^3/ul (0.0-0.5); EOSINOPHILS % 2.2 % (0.0-7.0); HEMATOCRIT 38.9 % (42.0-52.0); HEMOGLOBIN 11.4 g/dl (14.0-18.0); LYMPHOCYTES # 2.6 10^3/ul (0.8-2.9); LYMPHOCYTES % 28.4 % (15.0-51.0); MEAN CORPUSCULAR HEMOGLOBIN 28.2 pg (29.0-33.0); MEAN CORPUSCULAR HGB CONC 29.3 g/dl (32.0-37.0); MEAN CORPUSCULAR VOLUME 96.3 fl (82.0-101.0); MEAN PLATELET VOLUME 10.1 fl (7.4-10.4); MONOCYTE # 0.9 10^3/ul (0.3-0.9); NEUTROPHIL # 5.3 10^3/ul (1.6-7.5); NEUTROPHILS % 58.1 % (39.0-77.0); PLATELET COUNT 234 10^3/UL (140-415); RED BLOOD COUNT 4.04 10^6/ul (4.70-6.10); RED CELL DISTRIBUTION WIDTH 14.4 % (11.5-14.5); WHITE BLOOD COUNT 9.2 10^3/ul (4.8-10.8)
[2016-09-18 08:08] LABS: CALCIUM 8.5 mg/dl (8.4-10.2); CREATININE 1.53 mg/dl (0.61-1.24); POTASSIUM 3.6 mmol/L (3.5-5.1)
[2016-09-18] MEDS: GABAPENTIN 300 MG CAP PO SCH ×2 (08:33→20:07)
[2016-09-18] MEDS: CLOPIDOGREL 75 MG TAB PO SCH (08:34)
[2016-09-18] MEDS: LINAGLIPTIN 5 MG TABLET PO SCH (08:34)
[2016-09-18] MEDS: ASPIRIN 81 MG TAB PO SCH (08:34)
[2016-09-18] MEDS: LISINOPRIL 20 MG TAB PO SCH (08:34)
[2016-09-18] MEDS: predniSONE 1 MG TAB PO SCH (08:34)
--- NOTE | 2016-09-18 12:08 | PN ---
Date/Time of Note Date/Time of Note DATE: 09/18/16 TIME: 12:07 Assessment/Plan VTE Prophylaxis VTE Prophylaxis Intervention: other Lines/Catheters IV [facility] Type [facility] Peripheral IV Assessment/Plan Chief Complaint/Hosp Course 1) hypotension - intravenous fluids - rule out sepsis 2) coronary artery disease - appears to be stable Problems: Subjective 24 Hr Interval Summary Free Text/Dictation Feel better but still weak Exam/Review of Systems Vital Signs Vitals Vital Signs Date Time Temp Pulse Resp B/P Pulse Ox O2 Delivery O2 Flow Rate FiO2 09/18/16 11:53 98.6 67 18 125/66 100 09/17/16 21:10 Nasal Cannula 2.0 Intake and Output 09/17/16 09/17/16 09/18/16 15:00 23:00 07:00 Intake Total 1750 ml 1850 ml Output Total 200 ml 500 ml Balance 1550 ml 1350 ml Exam Constitutional: well developed Head: atraumatic, normocephalic Neck: supple Respiratory: clear to auscultation Cardiovascular: regular rate and rhythm Gastrointestinal: soft Extremities: normal pulses Results Result Diagram: 09/18/16 0647 09/18/16 0647 Results 24 hrs Laboratory Tests Test 09/17/16 14:00 09/18/16 06:47 Urine Color YELLOW Urine Clarity SLIGHTLY CLOUDY A Urine pH 5.0 Urine Specific Gordon 1.024 Urine Ketones NEGATIVE Urine Nitrite NEGATIVE Urine Bilirubin NEGATIVE Urine Urobilinogen NEGATIVE Urine Leukocyte Esterase NEGATIVE Urine Microscopic RBC 2 Urine Microscopic WBC 4 Urine Mucus FEW A Urine Hemoglobin NEGATIVE Urine Glucose NEGATIVE Urine Total Protein 1+ H White Blood Count 9.2 # Red Blood Count 4.04 L Hemoglobin 11.4 L Hematocrit 38.9 L Mean Corpuscular Volume 96.3 Mean Corpuscular Hemoglobin 28.2 L Mean Corpuscular Hemoglobin Concent 29.3 L Red Cell Distribution Width 14.4 Platelet Count 234 # Mean Platelet Volume 10.1 Neutrophils % 58.1 Lymphocytes % 28.4 Monocytes % 10.0 Eosinophils % 2.2 Basophils % 0.5 Nucleated Red Blood Cells % 0.0 Neutrophils # 5.3 Lymphocytes # 2.6 Monocytes # 0.9 Eosinophils # 0.2 Basophils # 0.1 Nucleated Red Blood Cells # 0.0 Sodium Level 137 Potassium Level 3.6 Chloride Level 109 Carbon Dioxide Level 27 Anion Gap 5 #L Blood Urea Nitrogen 26 H Creatinine 1.53 #H Glucose Level 107 Calcium Level 8.5 Medications Medications Current Medications Aspirin (Aspirin) 81 mg DAILY PO Last administered on 09/18/16 08:34; Admin Dose 81 MG; Start 09/17/16 at 09:00 Carvedilol (Coreg) 25 mg BID PO Last administered on 09/18/16 08:34; Admin Dose 25 MG; Start 09/17/16 at 09:00 Linagliptin (Tradjenta) 5 mg DAILY PO Last administered on 09/18/16 08:34; Admin Dose 5 MG; Start 09/17/16 at 09:00 Prednisone (Prednisone) 4 mg DAILY PO Last administered on 09/18/16 08:34; Admin Dose 4 MG; Start 09/17/16 at 09:00 Atorvastatin Calcium (Lipitor) 40 mg HS PO Last administered on 09/17/16 21:02 ; Admin Dose 40 MG; Start 09/17/16 at 21:00 Clonidine (Catapres) 0.1 mg BID PRN PO ELEVATED BLOOD PRESSURE; Start 09/17/16 at 07:00 Clopidogrel Bisulfate (plaVIX) 75 mg DAILY PO Last administered on 09/18/16 08: 34; Admin Dose 75 MG; Start 09/17/16 at 09:00 Carisoprodol (Soma) 350 mg Q8H PRN PO MUSCLE SPASMS Last administered on 11:52; Admin Dose 350 MG; Start 09/17/16 at 07:00 Gabapentin (Neurontin) 300 mg BID PO Last administered on 09/18/16 08:33; Admin Dose 300 MG; Start 09/17/16 at 09:00 Duloxetine HCl (Cymbalta) 60 mg HS PO Last administered on 09/17/16 21:01; Admin Dose 60 MG; Start 09/17/16 at 21:00 Lisinopril 20 mg 20 mg DAILY PO Last administered on 09/18/16 08:34; Admin Dose 20 MG; Start 09/17/16 at 09:00 Sodium Chloride (NS) 1,000 ml @ 100 mls/hr Q10H IV Last administered on 03:01; Admin Dose 100 MLS/HR; Start 09/17/16 at 07:30 Temazepam (Restoril) 15 mg HS PRN PO INSOMNIA Last administered on 09/17/16t 23: 55; Admin Dose 15 MG; Start 09/17/16 at 23:45 KINGA SALDAÑA Sep 18, 2016 12:08
[2016-09-18] MEDS: ATORVASTATIN 40 MG TAB PO SCH (20:07)
[2016-09-18] MEDS: DULOXETINE 30 MG CAP DR PO SCH (20:07)
[2016-09-18] MEDS ORDERED: LORAZEPAM 2 MG INJ IV PRN (23:00)
[2016-09-19] VITALS (12 sets, daily range): BP systolic 145–171; BP diastolic 70–86; PULSE 69; RESP 18–20
[2016-09-19] MEDS: TEMAZEPAM 15 MG CAP PO PRN ×2 (01:59→23:18)
[2016-09-19] MEDS: METHIMAZOLE 5 MG TAB PO SCH (06:25)
[2016-09-19] MEDS: LISINOPRIL 20 MG TAB PO SCH (08:10)
[2016-09-19] MEDS: ASPIRIN 81 MG TAB PO SCH (08:10)
[2016-09-19] MEDS: LINAGLIPTIN 5 MG TABLET PO SCH (08:10)
[2016-09-19] MEDS: CLOPIDOGREL 75 MG TAB PO SCH (08:10)
[2016-09-19] MEDS: GABAPENTIN 300 MG CAP PO SCH ×2 (08:10→20:36)
[2016-09-19] MEDS: predniSONE 1 MG TAB PO SCH (08:11)
[2016-09-19] MEDS: SOD CHLORIDE 0.9% 1,000 ML IV SCH ×2 (08:12→18:19)
[2016-09-19] MEDS: CARISOPRODOL 350 MG TAB PO PRN (10:55)
--- NOTE | 2016-09-19 13:27 | PN ---
Date/Time of Note Date/Time of Note DATE: 09/19/16 TIME: 13:26 Assessment/Plan VTE Prophylaxis VTE Prophylaxis Intervention: SCD's Lines/Catheters IV [facility] (from [facility] Peripheral IV Assessment/Plan Chief Complaint/Hosp Course ASSESSMENT AND PLAN: - Dehydration, continue gentle hydration. - TYSHAWN secondary to dehydration, hold lisinopril. - Congestive heart failure. Dr. Gaxiola is following in cardiology consultation. Continue Coreg. - Coronary artery disease, history of percutaneous coronary intervention or history of coronary bypass. Continue Plavix. - History of ventricular tachycardia,s/p implantable cardioverter defibrillator placement. - Thyroid disorder. Continue methimazole. - Dyslipidemia. - Hypertension. Further recommendations based on clinical course. Plan of care discussed with Dr. Hannah. Problems: Exam/Review of Systems Vital Signs Vitals Vital Signs Date Time Temp Pulse Resp B/P Pulse Ox O2 Delivery O2 Flow Rate FiO2 09/19/16 12:43 69 09/19/16 11:38 98.3 19 161/77 96 09/18/16 20:15 Nasal Cannula 2.0 Intake and Output 09/18/16 09/18/16 09/19/16 15:00 23:00 07:00 Intake Total 700 ml 1600 ml 1200 ml Output Total 300 ml 1305 ml Balance 700 ml 1300 ml -105 ml Exam Constitutional: alert, oriented Psych: no complaints Head: normocephalic Neck: supple Respiratory: normal air movement Cardiovascular: nl pulses, regular rate and rhythm Gastrointestinal: non-tender, soft Extremities: normal pulses 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: nl mental status Results Result Diagram: 09/18/16 0647 09/18/16 0647 Medications Medications Current Medications Aspirin (Aspirin) 81 mg DAILY PO Last administered on 09/19/16 08:10; Admin Dose 81 MG; Start 09/17/16 at 09:00 Carvedilol (Coreg) 25 mg BID PO Last administered on 09/19/16 08:11; Admin Dose 25 MG; Start 09/17/16 at 09:00 Linagliptin (Tradjenta) 5 mg DAILY PO Last administered on 09/19/16 08:10; Admin Dose 5 MG; Start 09/17/16 at 09:00 Prednisone (Prednisone) 4 mg DAILY PO Last administered on 09/19/16 08:11; Admin Dose 4 MG; Start 09/17/16 at 09:00 Atorvastatin Calcium (Lipitor) 40 mg HS PO Last administered on 09/18/16 20:07 ; Admin Dose 40 MG; Start 09/17/16 at 21:00 Clonidine (Catapres) 0.1 mg BID PRN PO ELEVATED BLOOD PRESSURE; Start 09/17/16 at 07:00 Clopidogrel Bisulfate (plaVIX) 75 mg DAILY PO Last administered on 09/19/16 08 :10; Admin Dose 75 MG; Start 09/17/16 at 09:00 Carisoprodol (Soma) 350 mg Q8H PRN PO MUSCLE SPASMS Last administered on 10:55; Admin Dose 350 MG; Start 09/17/16 at 07:00 Gabapentin (Neurontin) 300 mg BID PO Last administered on 09/19/16 08:10; Admin Dose 300 MG; Start 09/17/16 at 09:00 Duloxetine HCl (Cymbalta) 60 mg HS PO Last administered on 09/18/16 20:07; Admin Dose 60 MG; Start 09/17/16 at 21:00 Lisinopril 20 mg 20 mg DAILY PO Last administered on 09/19/16 08:10; Admin Dose 20 MG; Start 09/17/16 at 09:00 Sodium Chloride (NS) 1,000 ml @ 100 mls/hr Q10H IV Last administered on 08:12; Admin Dose 100 MLS/HR; Start 09/17/16 at 07:30 Temazepam (Restoril) 15 mg HS PRN PO INSOMNIA Last administered on 09/19/16 01 :59; Admin Dose 15 MG; Start 09/17/16 at 23:45 Lorazepam (Ativan) 1 mg Q4 PRN IV ANXIETY Last administered on 09/18/16 23:24; Admin Dose 1 MG; Start 09/18/16 at 23:00 JOSE VELASQUEZ Sep 19, 2016 13:27
[2016-09-19] MEDS: DULOXETINE 30 MG CAP DR PO SCH (20:36)
[2016-09-19] MEDS: ATORVASTATIN 40 MG TAB PO SCH (20:36)
[2016-09-19] MEDS: LORAZEPAM 1 MG TAB PO PRN (23:18)
[2016-09-20] VITALS (11 sets, daily range): BP systolic 155–188; BP diastolic 74–100; PULSE 69; RESP 18–21
[2016-09-20] MEDS: METHIMAZOLE 5 MG TAB PO SCH (05:39)
[2016-09-20] MEDS ORDERED: DEXTROSE 50% 50 ML SYRINGE IV PRN ×2 (07:00)
[2016-09-20] MEDS ORDERED: GLUCOSE GEL 15 GRAM TUBE BUCCAL PRN (07:00)
[2016-09-20] MEDS ORDERED: GLUCAGON 1 MG INJ IM PRN (07:00)
[2016-09-20] MEDS ORDERED: GLUCOSE GEL 15 GRAM TUBE PO PRN ×2 (07:00)
[2016-09-20 07:59] LABS: ADD SCAN DIFF NO
[2016-09-20 08:13] LABS: BASOPHIL # 0.1 10^3/ul (0.0-0.1); BASOPHILS % 0.5 % (0.0-2.0); EOSINOPHILS # 0.2 10^3/ul (0.0-0.5); EOSINOPHILS % 2.3 % (0.0-7.0); HEMATOCRIT 36.5 % (42.0-52.0); HEMOGLOBIN 11.2 g/dl (14.0-18.0); LYMPHOCYTES # 2.7 10^3/ul (0.8-2.9); LYMPHOCYTES % 28.4 % (15.0-51.0); MEAN CORPUSCULAR HEMOGLOBIN 28.8 pg (29.0-33.0); MEAN CORPUSCULAR HGB CONC 30.7 g/dl (32.0-37.0); MEAN CORPUSCULAR VOLUME 93.8 fl (82.0-101.0); MEAN PLATELET VOLUME 10.5 fl (7.4-10.4); MONOCYTE # 0.9 10^3/ul (0.3-0.9); MONOCYTES % 9.7 % (0.0-11.0); NEUTROPHIL # 5.6 10^3/ul (1.6-7.5); NEUTROPHILS % 58.4 % (39.0-77.0); PLATELET COUNT 223 10^3/UL (140-415); RED BLOOD COUNT 3.89 10^6/ul (4.70-6.10); RED CELL DISTRIBUTION WIDTH 14.2 % (11.5-14.5); WHITE BLOOD COUNT 9.6 10^3/ul (4.8-10.8)
[2016-09-20] MEDS: predniSONE 1 MG TAB PO SCH (08:17)
[2016-09-20] MEDS: LISINOPRIL 20 MG TAB PO SCH (08:18)
[2016-09-20] MEDS: LINAGLIPTIN 5 MG TABLET PO SCH (08:18)
[2016-09-20] MEDS: GABAPENTIN 300 MG CAP PO SCH ×2 (08:19→20:29)
[2016-09-20] MEDS: CLOPIDOGREL 75 MG TAB PO SCH (08:19)
[2016-09-20] MEDS: ASPIRIN 81 MG TAB PO SCH (08:23)
[2016-09-20 08:35] LABS: ALBUMIN 3.7 g/dl (3.3-4.9); ALBUMIN/GLOBULIN RATIO 1.76; BILIRUBIN,INDIRECT 0.1 mg/dl (0-1.1); BILIRUBIN,TOTAL 0.1 mg/dl (0.2-1.3); CALCIUM 8.9 mg/dl (8.4-10.2); CHOL/HDL RATIO 2.8 RATIO; CREATININE 1.04 mg/dl (0.61-1.24); MAGNESIUM 1.9 mg/dl (1.7-2.5); POTASSIUM 3.7 mmol/L (3.5-5.1); TOTAL PROTEIN 5.8 g/dl (6.1-8.1)
[2016-09-20 08:57] LABS: THYROID STIMULATING HORMONE 5.18 MIU/L (0.465-4.680)
[2016-09-20] MEDS ORDERED: CLOPIDOGREL 75 MG TAB PO SCH (09:00)
[2016-09-20] MEDS ORDERED: METHIMAZOLE 5 MG TAB PO SCH (09:00)
[2016-09-20] MEDS ORDERED: LINAGLIPTIN 5 MG TABLET PO SCH (09:00)
[2016-09-20] MEDS ORDERED: ATORVASTATIN 40 MG TAB PO SCH (09:00)
[2016-09-20] MEDS: SOD CHLORIDE 0.9% 1,000 ML IV SCH (12:13)
--- NOTE | 2016-09-20 15:36 | PN ---
Date/Time of Note Date/Time of Note DATE: 09/20/16 TIME: 15:28 Assessment/Plan VTE Prophylaxis VTE Prophylaxis Intervention: other Lines/Catheters IV Catheter Type (from [facility]): Saline Lock Assessment/Plan Chief Complaint/Hosp Course 1. CAD: S/P [place], CABG, PCI: stable with no angina 2. hx VT: S/P ICD: STABLE NOW 3. HTN: cont coreg will add aldactone 4. TYSHAWN: resolved now 5. dhyslipidemia: cont statin 6. obesity: add aldactone cont other cardiac care dc planning when ok with IM THANK YOU. Problems: Subjective 24 Hr Interval Summary Free Text/Dictation CARDIOLOGY FOLLOW UP PROGRESS NOTE: D/w staff and rhythm was reviewed. pt remains in NSR. no chest pain or pressure. no palpitations meds reviewed OBJECTIVE: Gen: OBESE man in no acute distress. HEENT: NC/AT Pupils are equal and round. NEURO: awake and alert, OX 3 nonfocal. CV : RRR. systolic murmur pulm: CTA b/l no wheezes. GI: soft obese NT ND. no rebound EXT: trace LE EDEMA Psych: calm and pleasant. Exam/Review of Systems Vital Signs Vitals Vital Signs Date Time Temp Pulse Resp B/P Pulse Ox O2 Delivery O2 Flow Rate FiO2 09/20/16 12:00 69 09/20/16 11:46 97.7 19 155/74 96 09/18/16 20:15 Nasal Cannula 2.0 Intake and Output 09/19/16 09/19/16 09/20/16 15:00 23:00 07:00 Intake Total 1800 ml 800 ml Output Total 800 ml 1500 ml Balance 1000 ml -700 ml Results Result Diagram: 09/20/16 0657 09/20/16 0657 Results 24 hrs Laboratory Tests Test 09/20/16 06:57 White Blood Count 9.6 Red Blood Count 3.89 L Hemoglobin 11.2 L Hematocrit 36.5 L Mean Corpuscular Volume 93.8 Mean Corpuscular Hemoglobin 28.8 L Mean Corpuscular Hemoglobin Concent 30.7 L Red Cell Distribution Width 14.2 Platelet Count 223 Mean Platelet Volume 10.5 H Neutrophils % 58.4 Lymphocytes % 28.4 Monocytes % 9.7 Eosinophils % 2.3 Basophils % 0.5 Nucleated Red Blood Cells % 0.0 Neutrophils # 5.6 Lymphocytes # 2.7 Monocytes # 0.9 Eosinophils # 0.2 Basophils # 0.1 Nucleated Red Blood Cells # 0.0 Sodium Level 134 L Potassium Level 3.7 Chloride Level 103 Carbon Dioxide Level 29 Anion Gap 6 L Blood Urea Nitrogen 15 Creatinine 1.04 Glucose Level 101 Calcium Level 8.9 Magnesium Level 1.9 Total Bilirubin 0.1 L Direct Bilirubin 0.00 Indirect Bilirubin 0.1 Aspartate Amino Transf (AST/SGOT) 13 L Alanine Aminotransferase (ALT/SGPT) 20 Alkaline Phosphatase 86 B-Type Natriuretic Peptide 2640 H Total Protein 5.8 L Albumin 3.7 Globulin 2.10 Albumin/Globulin Ratio 1.76 Triglycerides Level 86 Cholesterol Level 143 LDL Cholesterol, Calculated 75 HDL Cholesterol 51 Cholesterol/HDL Ratio 2.8 Thyroid Stimulating Hormone (TSH) 5.180 H Free Thyroxine 1.02 Medications Medications Current Medications Carvedilol (Coreg) 25 mg BID PO Last administered on 09/20/16 08:18; Admin Dose 25 MG; Start 09/17/16 at 09:00 Linagliptin (Tradjenta) 5 mg DAILY PO Last administered on 09/20/16 08:18; Admin Dose 5 MG; Start 09/17/16 at 09:00 Prednisone (Prednisone) 4 mg DAILY PO Last administered on 09/20/16 08:17; Admin Dose 4 MG; Start 09/17/16 at 09:00 Atorvastatin Calcium (Lipitor) 40 mg HS PO Last administered on 09/19/16 20:36 ; Admin Dose 40 MG; Start 09/17/16 at 21:00 Clonidine (Catapres) 0.1 mg BID PRN PO ELEVATED BLOOD PRESSURE Last administered on 09/20/16 08:18; Admin Dose 0.1 MG; Start 09/17/16 at 07:00 Clopidogrel Bisulfate (plaVIX) 75 mg DAILY PO Last administered on 09/20/16 08 :19; Admin Dose 75 MG; Start 09/17/16 at 09:00 Carisoprodol (Soma) 350 mg Q8H PRN PO MUSCLE SPASMS Last administered on 10:55; Admin Dose 350 MG; Start 09/17/16 at 07:00 Gabapentin (Neurontin) 300 mg BID PO Last administered on 09/20/16 08:19; Admin Dose 300 MG; Start 09/17/16 at 09:00 Duloxetine HCl (Cymbalta) 60 mg HS PO Last administered on 09/19/16 20:36; Admin Dose 60 MG; Start 09/17/16 at 21:00 Lisinopril 20 mg 20 mg DAILY PO Last administered on 09/20/16 08:18; Admin Dose 20 MG; Start 09/17/16 at 09:00 Sodium Chloride (NS) 1,000 ml @ 60 mls/hr [id number] IV Last administered on 09/20 12:13; Admin Dose 60 MLS/HR; Start 09/17/16 at 07:30 Temazepam (Restoril) 15 mg HS PRN PO INSOMNIA Last administered on 09/19/16 23 :18; Admin Dose 15 MG; Start 09/17/16 at 23:45 Aspirin (Aspirin) 81 mg DAILY PO Last administered on 09/20/16 08:23; Admin Dose 81 MG; Start 09/20/16 at 09:00 Lorazepam (Ativan) 1 mg Q4H PRN PO ANXIETY Last administered on 09/19/16 23:18 ; Admin Dose 1 MG; Start 09/19/16 at 21:00 Miscellaneous Information 1 ea NOTE XX ; Start 09/20/16 at 07:00 Glucose (Glutose) 15 gm Q15M PRN PO DECREASED GLUCOSE; Start 09/20/16 at 07:00 Glucose (Glutose) 22.5 gm Q15M PRN PO DECREASED GLUCOSE; Start 09/20/16 at 07: 00 Dextrose (D50w Syringe) 25 ml Q15M PRN IV DECREASED GLUCOSE; Start 09/20/16 at 07:00 Dextrose (D50w Syringe) 50 ml Q15M PRN IV DECREASED GLUCOSE; Start 09/20/16 at 07:00 Glucagon (Glucagen) 1 mg Q15M PRN IM DECREASED GLUCOSE; Start 09/20/16 at 07:00 Glucose (Glutose) 15 gm Q15M PRN BUCCAL DECREASED GLUCOSE; Start 09/20/16 at 07 :00 PEÑA CUBA MD Sep 20, 2016 15:35
[2016-09-20] MEDS: SPIRONOLACTONE 25 MG TAB PO SCH (16:32)
--- NOTE | 2016-09-20 17:37 | PN ---
Date/Time of Note Date/Time of Note DATE: 09/20/16 TIME: 17:35 Assessment/Plan VTE Prophylaxis VTE Prophylaxis Intervention: SCD's Lines/Catheters IV Catheter Type (from [facility]): Saline Lock Assessment/Plan Chief Complaint/Hosp Course Patient has elevated blood pressure, restarted on blood pressure home medications, comfortable at rest, denies any chest pain, PT eval. ASSESSMENT AND PLAN: - Dehydration, resolved. - TYSHAWN secondary to dehydration, hold lisinopril. - Acute on chronic diastolic congestive heart failure. Dr. Gaxiola is following in cardiology consultation. Continue Coreg. - Coronary artery disease, history of percutaneous coronary intervention or history of coronary bypass. Continue Plavix. - History of ventricular tachycardia,s/p implantable cardioverter defibrillator placement. - Thyroid disorder. Continue methimazole. - Dyslipidemia. - Hypertension. Further recommendations based on clinical course. Plan of care discussed with Dr. Hannah. Problems: Exam/Review of Systems Vital Signs Vitals Vital Signs Date Time Temp Pulse Resp B/P Pulse Ox O2 Delivery O2 Flow Rate FiO2 09/20/16 16:00 69 09/20/16 15:32 98.0 19 175/81 100 09/18/16 20:15 Nasal Cannula 2.0 Intake and Output 09/19/16 09/19/16 09/20/16 15:00 23:00 07:00 Intake Total 1800 ml 800 ml Output Total 800 ml 1500 ml Balance 1000 ml -700 ml Exam Constitutional: alert, oriented Psych: no complaints Head: normocephalic Neck: supple Respiratory: normal air movement Cardiovascular: nl pulses, regular rate and rhythm Gastrointestinal: non-tender, soft Extremities: normal pulses 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: nl mental status Results Result Diagram: 09/20/16 0657 09/20/16 0657 Results 24 hrs Laboratory Tests Test 09/20/16 06:57 White Blood Count 9.6 Red Blood Count 3.89 L Hemoglobin 11.2 L Hematocrit 36.5 L Mean Corpuscular Volume 93.8 Mean Corpuscular Hemoglobin 28.8 L Mean Corpuscular Hemoglobin Concent 30.7 L Red Cell Distribution Width 14.2 Platelet Count 223 Mean Platelet Volume 10.5 H Neutrophils % 58.4 Lymphocytes % 28.4 Monocytes % 9.7 Eosinophils % 2.3 Basophils % 0.5 Nucleated Red Blood Cells % 0.0 Neutrophils # 5.6 Lymphocytes # 2.7 Monocytes # 0.9 Eosinophils # 0.2 Basophils # 0.1 Nucleated Red Blood Cells # 0.0 Sodium Level 134 L Potassium Level 3.7 Chloride Level 103 Carbon Dioxide Level 29 Anion Gap 6 L Blood Urea Nitrogen 15 Creatinine 1.04 Glucose Level 101 Calcium Level 8.9 Magnesium Level 1.9 Total Bilirubin 0.1 L Direct Bilirubin 0.00 Indirect Bilirubin 0.1 Aspartate Amino Transf (AST/SGOT) 13 L Alanine Aminotransferase (ALT/SGPT) 20 Alkaline Phosphatase 86 B-Type Natriuretic Peptide 2640 H Total Protein 5.8 L Albumin 3.7 Globulin 2.10 Albumin/Globulin Ratio 1.76 Triglycerides Level 86 Cholesterol Level 143 LDL Cholesterol, Calculated 75 HDL Cholesterol 51 Cholesterol/HDL Ratio 2.8 Thyroid Stimulating Hormone (TSH) 5.180 H Free Thyroxine 1.02 Medications Medications Current Medications Carvedilol (Coreg) 25 mg BID PO Last administered on 09/20/16 08:18; Admin Dose 25 MG; Start 09/17/16 at 09:00 Linagliptin (Tradjenta) 5 mg DAILY PO Last administered on 09/20/16 08:18; Admin Dose 5 MG; Start 09/17/16 at 09:00 Prednisone (Prednisone) 4 mg DAILY PO Last administered on 09/20/16 08:17; Admin Dose 4 MG; Start 09/17/16 at 09:00 Atorvastatin Calcium (Lipitor) 40 mg HS PO Last administered on 09/19/16 20:36 ; Admin Dose 40 MG; Start 09/17/16 at 21:00 Clonidine (Catapres) 0.1 mg BID PRN PO ELEVATED BLOOD PRESSURE Last administered on 09/20/16 16:32; Admin Dose 0.1 MG; Start 09/17/16 at 07:00 Clopidogrel Bisulfate (plaVIX) 75 mg DAILY PO Last administered on 09/20/16 08 :19; Admin Dose 75 MG; Start 09/17/16 at 09:00 Carisoprodol (Soma) 350 mg Q8H PRN PO MUSCLE SPASMS Last administered on 10:55; Admin Dose 350 MG; Start 09/17/16 at 07:00 Gabapentin (Neurontin) 300 mg BID PO Last administered on 09/20/16 08:19; Admin Dose 300 MG; Start 09/17/16 at 09:00 Duloxetine HCl (Cymbalta) 60 mg HS PO Last administered on 09/19/16 20:36; Admin Dose 60 MG; Start 09/17/16 at 21:00 Lisinopril 20 mg 20 mg DAILY PO Last administered on 09/20/16 08:18; Admin Dose 20 MG; Start 09/17/16 at 09:00 Sodium Chloride (NS) 1,000 ml @ 60 mls/hr [id number] IV Last administered on 09/20 12:13; Admin Dose 60 MLS/HR; Start 09/17/16 at 07:30 Temazepam (Restoril) 15 mg HS PRN PO INSOMNIA Last administered on 09/19/16 23 :18; Admin Dose 15 MG; Start 09/17/16 at 23:45 Aspirin (Aspirin) 81 mg DAILY PO Last administered on 09/20/16 08:23; Admin Dose 81 MG; Start 09/20/16 at 09:00 Lorazepam (Ativan) 1 mg Q4H PRN PO ANXIETY Last administered on 09/19/16 23:18 ; Admin Dose 1 MG; Start 09/19/16 at 21:00 Miscellaneous Information 1 ea NOTE XX ; Start 09/20/16 at 07:00 Glucose (Glutose) 15 gm Q15M PRN PO DECREASED GLUCOSE; Start 09/20/16 at 07:00 Glucose (Glutose) 22.5 gm Q15M PRN PO DECREASED GLUCOSE; Start 09/20/16 at 07: 00 Dextrose (D50w Syringe) 25 ml Q15M PRN IV DECREASED GLUCOSE; Start 09/20/16 at 07:00 Dextrose (D50w Syringe) 50 ml Q15M PRN IV DECREASED GLUCOSE; Start 09/20/16 at 07:00 Glucagon (Glucagen) 1 mg Q15M PRN IM DECREASED GLUCOSE; Start 09/20/16 at 07:00 Glucose (Glutose) 15 gm Q15M PRN BUCCAL DECREASED GLUCOSE; Start 09/20/16 at 07 :00 Spironolactone (Aldactone) 25 mg DAILY PO Last administered on 09/20/16 16:32 ; Admin Dose 25 MG; Start 09/20/16 at 16:00 JOSE VELASQUEZ Sep 20, 2016 17:36
[2016-09-20] MEDS: ATORVASTATIN 40 MG TAB PO SCH (20:29)
[2016-09-20] MEDS: DULOXETINE 30 MG CAP DR PO SCH (20:29)
[2016-09-20] MEDS: CARISOPRODOL 350 MG TAB PO PRN (21:54)
[2016-09-20] MEDS: LORAZEPAM 1 MG TAB PO PRN (22:53)
[2016-09-21] VITALS (13 sets, daily range): BP systolic 136–172; BP diastolic 64–87; PULSE 69–77; RESP 20–21
[2016-09-21] MEDS: TEMAZEPAM 15 MG CAP PO PRN ×2 (00:36→23:46)
[2016-09-21 07:55] LABS: ADD SCAN DIFF NO
[2016-09-21 07:59] LABS: BASOPHIL # 0.1 10^3/ul (0.0-0.1); BASOPHILS % 0.6 % (0.0-2.0); EOSINOPHILS # 0.2 10^3/ul (0.0-0.5); EOSINOPHILS % 2.3 % (0.0-7.0); HEMATOCRIT 36.2 % (42.0-52.0); HEMOGLOBIN 11.2 g/dl (14.0-18.0); LYMPHOCYTES # 2.4 10^3/ul (0.8-2.9); LYMPHOCYTES % 27.8 % (15.0-51.0); MEAN CORPUSCULAR HEMOGLOBIN 28.6 pg (29.0-33.0); MEAN CORPUSCULAR HGB CONC 30.9 g/dl (32.0-37.0); MEAN CORPUSCULAR VOLUME 92.3 fl (82.0-101.0); MEAN PLATELET VOLUME 10.5 fl (7.4-10.4); NEUTROPHILS % 57.5 % (39.0-77.0); PLATELET COUNT 226 10^3/UL (140-415); RED BLOOD COUNT 3.92 10^6/ul (4.70-6.10); RED CELL DISTRIBUTION WIDTH 14.2 % (11.5-14.5); WHITE BLOOD COUNT 8.7 10^3/ul (4.8-10.8)
[2016-09-21 08:29] LABS: CREATININE 1.22 mg/dl (0.61-1.24); POTASSIUM 4.1 mmol/L (3.5-5.1)
--- NOTE | 2016-09-21 08:31 | PN ---
Date/Time of Note Date/Time of Note DATE: 09/21/16 TIME: 08:29 Assessment/Plan VTE Prophylaxis VTE Prophylaxis Intervention: ambulation Lines/Catheters IV Catheter Type (from [facility]): Saline Lock Assessment/Plan Chief Complaint/Hosp Course 1. CAD: S/P [place], CABG, PCI: stable with no angina cont ASA 2. hx VT: S/P ICD: STABLE NOW 3. HTN: cont coreg will cont aldactone 4. TYSHAWN: resolved now 5. hyslipidemia: cont statin 6. obesity: CONT aldactone cont other cardiac care dc planning when ok with IM THANK YOU. Problems: Subjective 24 Hr Interval Summary Free Text/Dictation CARDIOLOGY FOLLOW UP PROGRESS NOTE: D/w staff and rhythm was reviewed. pt remains in NSR/ apaced rhythm no chest pain or pressure. no palpitations he states he walked today with no chest pain or pressure or sob meds reviewed OBJECTIVE: Gen: OBESE man in no acute distress. HEENT: NC/AT Pupils are equal and round. NEURO: awake and alert, OX 3 nonfocal. CV : RRR. systolic murmur pulm: CTA b/l no wheezes. GI: soft obese NT ND. no rebound EXT: trace LE EDEMA Psych: calm and pleasant. Exam/Review of Systems Vital Signs Vitals Vital Signs Date Time Temp Pulse Resp B/P Pulse Ox O2 Delivery O2 Flow Rate FiO2 09/21/16 07:31 97.9 70 20 145/72 98 09/18/16 20:15 Nasal Cannula 2.0 Intake and Output 09/20/16 09/20/16 09/21/16 15:00 23:00 07:00 Intake Total 2040 ml 1400 ml Output Total 1200 ml 1100 ml Balance 840 ml 300 ml Results Result Diagram: 09/21/16 0657 09/20/16 0657 Results 24 hrs Laboratory Tests Test 09/21/16 06:57 White Blood Count 8.7 Red Blood Count 3.92 L Hemoglobin 11.2 L Hematocrit 36.2 L Mean Corpuscular Volume 92.3 Mean Corpuscular Hemoglobin 28.6 L Mean Corpuscular Hemoglobin Concent 30.9 L Red Cell Distribution Width 14.2 Platelet Count 226 Mean Platelet Volume 10.5 H Neutrophils % 57.5 Lymphocytes % 27.8 Monocytes % 11.0 Eosinophils % 2.3 Basophils % 0.6 Nucleated Red Blood Cells % 0.0 Neutrophils # 5.0 Lymphocytes # 2.4 Monocytes # 1.0 H Eosinophils # 0.2 Basophils # 0.1 Nucleated Red Blood Cells # 0.0 Medications Medications Current Medications Carvedilol (Coreg) 25 mg BID PO Last administered on 09/20/16 20:29; Admin Dose 25 MG; Start 09/17/16 at 09:00 Linagliptin (Tradjenta) 5 mg DAILY PO Last administered on 09/20/16 08:18; Admin Dose 5 MG; Start 09/17/16 at 09:00 Prednisone (Prednisone) 4 mg DAILY PO Last administered on 09/20/16 08:17; Admin Dose 4 MG; Start 09/17/16 at 09:00 Atorvastatin Calcium (Lipitor) 40 mg HS PO Last administered on 09/20/16 20:29 ; Admin Dose 40 MG; Start 09/17/16 at 21:00 Clopidogrel Bisulfate (plaVIX) 75 mg DAILY PO Last administered on 09/20/16 08 :19; Admin Dose 75 MG; Start 09/17/16 at 09:00 Carisoprodol (Soma) 350 mg Q8H PRN PO MUSCLE SPASMS Last administered on 21:54; Admin Dose 350 MG; Start 09/17/16 at 07:00 Gabapentin (Neurontin) 300 mg BID PO Last administered on 09/20/16 20:29; Admin Dose 300 MG; Start 09/17/16 at 09:00 Duloxetine HCl (Cymbalta) 60 mg HS PO Last administered on 09/20/16 20:29; Admin Dose 60 MG; Start 09/17/16 at 21:00 Lisinopril (Zestril) 20 mg DAILY PO Last administered on 09/20/16 08:18; Admin Dose 20 MG; Start 09/17/16 at 09:00 Temazepam (Restoril) 15 mg HS PRN PO INSOMNIA Last administered on 09/21/16 00 :36; Admin Dose 15 MG; Start 09/17/16 at 23:45 Aspirin (Aspirin) 81 mg DAILY PO Last administered on 09/20/16 08:23; Admin Dose 81 MG; Start 09/20/16 at 09:00 Lorazepam (Ativan) 1 mg Q4H PRN PO ANXIETY Last administered on 09/20/16 22:53 ; Admin Dose 1 MG; Start 09/19/16 at 21:00 Miscellaneous Information 1 ea NOTE XX ; Start 09/20/16 at 07:00 Glucose (Glutose) 15 gm Q15M PRN PO DECREASED GLUCOSE; Start 09/20/16 at 07:00 Glucose (Glutose) 22.5 gm Q15M PRN PO DECREASED GLUCOSE; Start 09/20/16 at 07: 00 Dextrose (D50w Syringe) 25 ml Q15M PRN IV DECREASED GLUCOSE; Start 09/20/16 at 07:00 Dextrose (D50w Syringe) 50 ml Q15M PRN IV DECREASED GLUCOSE; Start 09/20/16 at 07:00 Glucagon (Glucagen) 1 mg Q15M PRN IM DECREASED GLUCOSE; Start 09/20/16 at 07:00 Glucose (Glutose) 15 gm Q15M PRN BUCCAL DECREASED GLUCOSE; Start 09/20/16 at 07 :00 Spironolactone (Aldactone) 25 mg DAILY PO Last administered on 09/20/16 16:32 ; Admin Dose 25 MG; Start 09/20/16 at 16:00 Clonidine (Catapres) 0.1 mg Q6H PRN PO ELEVATED BLOOD PRESSURE; Start 09/21/16 at 00:30 Hydralazine HCl (Apresoline) 25 mg Q6H PRN PO ELEVATED BLOOD PRESSURE Last administered on 09/21/16 00:50; Admin Dose 25 MG; Start 09/21/16 at 00:30 PEÑA CUBA MD Sep 21, 2016 08:31
[2016-09-21] MEDS: predniSONE 1 MG TAB PO SCH (09:00)
[2016-09-21] MEDS: ASPIRIN 81 MG TAB PO SCH (09:00)
[2016-09-21] MEDS: SPIRONOLACTONE 25 MG TAB PO SCH (09:59)
[2016-09-21] MEDS: CLOPIDOGREL 75 MG TAB PO SCH (09:59)
[2016-09-21] MEDS: LINAGLIPTIN 5 MG TABLET PO SCH (10:00)
[2016-09-21] MEDS: GABAPENTIN 300 MG CAP PO SCH ×2 (10:01→21:55)
[2016-09-21] MEDS: LISINOPRIL 20 MG TAB PO SCH (10:03)
[2016-09-21] MEDS: METHIMAZOLE 5 MG TAB PO SCH (10:03)
--- NOTE | 2016-09-21 17:24 | PN ---
Date/Time of Note Date/Time of Note DATE: 09/21/16 TIME: 17:21 Assessment/Plan VTE Prophylaxis VTE Prophylaxis Intervention: SCD's Lines/Catheters IV [facility] Type (from [facility]): Saline Lock Assessment/Plan Chief Complaint/Hosp Course Patient with intermittent hypertension, complaints of dizziness and shortness of breath on exertion, PT eval ordered. ASSESSMENT AND PLAN: - Dehydration, resolved. - TYSHAWN secondary to dehydration, hold lisinopril. - Acute on chronic diastolic congestive heart failure. Dr. Gaxiola is following in cardiology consultation. Continue Coreg. - Coronary artery disease, history of percutaneous coronary intervention or history of coronary bypass. Continue Plavix. - History of ventricular tachycardia,s/p implantable cardioverter defibrillator placement. - Thyroid disorder. Continue methimazole. - Dyslipidemia. - Hypertension. Continue Aldactone, hydralazine and clonidine as needed. Further recommendations based on clinical course. Plan of care discussed with Dr. Hannah. Problems: Exam/Review of Systems Vital Signs Vitals Vital Signs Date Time Temp Pulse Resp B/P Pulse Ox O2 Delivery O2 Flow Rate FiO2 09/21/16 16:35 69 09/21/16 15:15 98.1 20 166/87 97 09/18/16 20:15 Nasal Cannula 2.0 Intake and Output 09/20/16 09/20/16 09/21/16 15:00 23:00 07:00 Intake Total 2040 ml 1400 ml Output Total 1200 ml 1100 ml Balance 840 ml 300 ml Exam Constitutional: alert, oriented Psych: no complaints Head: normocephalic Neck: supple Respiratory: normal air movement Cardiovascular: nl pulses, regular rate and rhythm Gastrointestinal: non-tender, soft Extremities: normal pulses 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: nl mental status Results Result Diagram: 09/21/16 0657 09/21/16 0657 Results 24 hrs Laboratory Tests Test 09/21/16 06:57 White Blood Count 8.7 Red Blood Count 3.92 L Hemoglobin 11.2 L Hematocrit 36.2 L Mean Corpuscular Volume 92.3 Mean Corpuscular Hemoglobin 28.6 L Mean Corpuscular Hemoglobin Concent 30.9 L Red Cell Distribution Width 14.2 Platelet Count 226 Mean Platelet Volume 10.5 H Neutrophils % 57.5 Lymphocytes % 27.8 Monocytes % 11.0 Eosinophils % 2.3 Basophils % 0.6 Nucleated Red Blood Cells % 0.0 Neutrophils # 5.0 Lymphocytes # 2.4 Monocytes # 1.0 H Eosinophils # 0.2 Basophils # 0.1 Nucleated Red Blood Cells # 0.0 Sodium Level 136 Potassium Level 4.1 Chloride Level 102 Carbon Dioxide Level 32 H Anion Gap 6 L Blood Urea Nitrogen 19 Creatinine 1.22 Glucose Level 99 Calcium Level 9.0 Medications Medications Current Medications Carvedilol (Coreg) 25 mg BID PO Last administered on 09/21/16 10:02; Admin Dose 25 MG; Start 09/17/16 at 09:00 Linagliptin (Tradjenta) 5 mg DAILY PO Last administered on 09/21/16 10:00; Admin Dose 5 MG; Start 09/17/16 at 09:00 Prednisone (Prednisone) 4 mg DAILY PO Last administered on 09/21/16 09:00; Admin Dose 4 MG; Start 09/17/16 at 09:00 Atorvastatin Calcium (Lipitor) 40 mg HS PO Last administered on 09/20/16 20:29 ; Admin Dose 40 MG; Start 09/17/16 at 21:00 Clopidogrel Bisulfate (plaVIX) 75 mg DAILY PO Last administered on 09/21/16 09 :59; Admin Dose 75 MG; Start 09/17/16 at 09:00 Carisoprodol (Soma) 350 mg Q8H PRN PO MUSCLE SPASMS Last administered on 21:54; Admin Dose 350 MG; Start 09/17/16 at 07:00 Gabapentin (Neurontin) 300 mg BID PO Last administered on 09/21/16 10:01; Admin Dose 300 MG; Start 09/17/16 at 09:00 Duloxetine HCl (Cymbalta) 60 mg HS PO Last administered on 09/20/16 20:29; Admin Dose 60 MG; Start 09/17/16 at 21:00 Lisinopril (Zestril) 20 mg DAILY PO Last administered on 09/21/16 10:03; Admin Dose 20 MG; Start 09/17/16 at 09:00 Temazepam (Restoril) 15 mg HS PRN PO INSOMNIA Last administered on 09/21/16 00 :36; Admin Dose 15 MG; Start 09/17/16 at 23:45 Aspirin (Aspirin) 81 mg DAILY PO Last administered on 09/21/16 09:00; Admin Dose 81 MG; Start 09/20/16 at 09:00 Lorazepam (Ativan) 1 mg Q4H PRN PO ANXIETY Last administered on 09/20/16 22:53 ; Admin Dose 1 MG; Start 09/19/16 at 21:00 Miscellaneous Information 1 ea NOTE XX ; Start 09/20/16 at 07:00 Glucose (Glutose) 15 gm Q15M PRN PO DECREASED GLUCOSE; Start 09/20/16 at 07:00 Glucose (Glutose) 22.5 gm Q15M PRN PO DECREASED GLUCOSE; Start 09/20/16 at 07: 00 Dextrose (D50w Syringe) 25 ml Q15M PRN IV DECREASED GLUCOSE; Start 09/20/16 at 07:00 Dextrose (D50w Syringe) 50 ml Q15M PRN IV DECREASED GLUCOSE; Start 09/20/16 at 07:00 Glucagon (Glucagen) 1 mg Q15M PRN IM DECREASED GLUCOSE; Start 09/20/16 at 07:00 Glucose (Glutose) 15 gm Q15M PRN BUCCAL DECREASED GLUCOSE; Start 09/20/16 at 07 :00 Spironolactone (Aldactone) 25 mg DAILY PO Last administered on 09/21/16 09:59 ; Admin Dose 25 MG; Start 09/20/16 at 16:00 Clonidine (Catapres) 0.1 mg Q6H PRN PO ELEVATED BLOOD PRESSURE; Start 09/21/16 at 00:30 Hydralazine HCl (Apresoline) 25 mg Q6H PRN PO ELEVATED BLOOD PRESSURE Last administered on 09/21/16 00:50; Admin Dose 25 MG; Start 09/21/16 at 00:30 JOSE VELASQUEZ Sep 21, 2016 17:24
[2016-09-21] MEDS: ATORVASTATIN 40 MG TAB PO SCH (21:55)
[2016-09-21] MEDS: DULOXETINE 30 MG CAP DR PO SCH (21:55)
[2016-09-21] MEDS: LORAZEPAM 1 MG TAB PO PRN (23:46)
[2016-09-22] VITALS (13 sets, daily range): BP systolic 118–187; BP diastolic 58–88; PULSE 50–70; RESP 17–20
[2016-09-22] MEDS: METHIMAZOLE 5 MG TAB PO SCH (06:21)
[2016-09-22 07:34] LABS: ADD SCAN DIFF NO
[2016-09-22 07:43] LABS: BASOPHIL # 0.1 10^3/ul (0.0-0.1); BASOPHILS % 0.6 % (0.0-2.0); EOSINOPHILS # 0.2 10^3/ul (0.0-0.5); EOSINOPHILS % 2.4 % (0.0-7.0); HEMATOCRIT 37.8 % (42.0-52.0); HEMOGLOBIN 11.5 g/dl (14.0-18.0); LYMPHOCYTES # 2.6 10^3/ul (0.8-2.9); LYMPHOCYTES % 29.4 % (15.0-51.0); MEAN CORPUSCULAR HEMOGLOBIN 28.3 pg (29.0-33.0); MEAN CORPUSCULAR HGB CONC 30.4 g/dl (32.0-37.0); MEAN CORPUSCULAR VOLUME 92.9 fl (82.0-101.0); MEAN PLATELET VOLUME 10.6 fl (7.4-10.4); MONOCYTE # 0.9 10^3/ul (0.3-0.9); MONOCYTES % 10.1 % (0.0-11.0); NEUTROPHILS % 56.8 % (39.0-77.0); PLATELET COUNT 243 10^3/UL (140-415); RED BLOOD COUNT 4.07 10^6/ul (4.70-6.10); RED CELL DISTRIBUTION WIDTH 14.2 % (11.5-14.5); WHITE BLOOD COUNT 8.7 10^3/ul (4.8-10.8)
[2016-09-22 07:58] LABS: CALCIUM 9.6 mg/dl (8.4-10.2); CREATININE 1.23 mg/dl (0.61-1.24); POTASSIUM 4.1 mmol/L (3.5-5.1)
[2016-09-22] MEDS: CLOPIDOGREL 75 MG TAB PO SCH (08:18)
[2016-09-22] MEDS: predniSONE 1 MG TAB PO SCH (08:19)
[2016-09-22] MEDS: LINAGLIPTIN 5 MG TABLET PO SCH (08:19)
[2016-09-22] MEDS: LISINOPRIL 20 MG TAB PO SCH (08:21)
[2016-09-22] MEDS: SPIRONOLACTONE 25 MG TAB PO SCH (08:21)
[2016-09-22] MEDS: GABAPENTIN 300 MG CAP PO SCH ×2 (08:21→21:13)
[2016-09-22] MEDS: ASPIRIN 81 MG TAB PO SCH (08:21)
--- NOTE | 2016-09-22 09:50 | PN ---
Date/Time of Note Date/Time of Note DATE: 09/22/16 TIME: 09:49 Assessment/Plan VTE Prophylaxis VTE Prophylaxis Intervention: other Lines/Catheters IV Catheter Type (from [facility]): Saline Lock Urinary Cath still in place: No Assessment/Plan Chief Complaint/Hosp Course 1. CAD: S/P [place], CABG, PCI: stable with no angina cont ASA 2. hx VT: S/P ICD: STABLE NOW 3. HTN: cont coreg inc lisinopril will cont aldactone clonidine prn as well 4. TYSHAWN: resolved now 5. hyslipidemia: cont statin 6. obesity: dc planning when ok with IM THANK YOU. Problems: Subjective 24 Hr Interval Summary Free Text/Dictation CARDIOLOGY FOLLOW UP PROGRESS NOTE: D/w staff and rhythm was reviewed. pt remains in NSR/ apaced rhythm no chest pain or pressure. no palpitations BP has been elevated meds reviewed OBJECTIVE: Gen: OBESE man in no acute distress. HEENT: NC/AT Pupils are equal and round. NEURO: awake and alert, OX 3 nonfocal. CV : RRR. systolic murmur pulm: CTA b/l no wheezes. GI: soft obese NT ND. no rebound EXT: trace LE EDEMA Psych: calm and pleasant. Exam/Review of Systems Vital Signs Vitals Vital Signs Date Time Temp Pulse Resp B/P Pulse Ox O2 Delivery O2 Flow Rate FiO2 09/22/16 08:33 69 09/22/16 07:47 98.2 20 179/86 97 09/18/16 20:15 Nasal Cannula 2.0 Intake and Output 09/21/16 09/21/16 09/22/16 15:00 23:00 07:00 Intake Total 1000 ml 400 ml Output Total 600 ml Balance 1000 ml -200 ml Results Result Diagram: 09/22/16 0649 09/22/16 0649 Results 24 hrs Laboratory Tests Test 09/22/16 06:49 White Blood Count 8.7 Red Blood Count 4.07 L Hemoglobin 11.5 L Hematocrit 37.8 L Mean Corpuscular Volume 92.9 Mean Corpuscular Hemoglobin 28.3 L Mean Corpuscular Hemoglobin Concent 30.4 L Red Cell Distribution Width 14.2 Platelet Count 243 Mean Platelet Volume 10.6 H Neutrophils % 56.8 Lymphocytes % 29.4 Monocytes % 10.1 Eosinophils % 2.4 Basophils % 0.6 Nucleated Red Blood Cells % 0.0 Neutrophils # 5.0 Lymphocytes # 2.6 Monocytes # 0.9 Eosinophils # 0.2 Basophils # 0.1 Nucleated Red Blood Cells # 0.0 Sodium Level 132 L Potassium Level 4.1 Chloride Level 98 Carbon Dioxide Level 35 H Anion Gap 3 L Blood Urea Nitrogen 19 Creatinine 1.23 Glucose Level 98 Calcium Level 9.6 Medications Medications Current Medications Carvedilol (Coreg) 25 mg BID PO Last administered on 09/22/16 08:17; Admin Dose 25 MG; Start 09/17/16 at 09:00 Linagliptin (Tradjenta) 5 mg DAILY PO Last administered on 09/22/16 08:19; Admin Dose 5 MG; Start 09/17/16 at 09:00 Prednisone (Prednisone) 4 mg DAILY PO Last administered on 09/22/16 08:19; Admin Dose 4 MG; Start 09/17/16 at 09:00 Atorvastatin Calcium (Lipitor) 40 mg HS PO Last administered on 09/21/16 21:55 ; Admin Dose 40 MG; Start 09/17/16 at 21:00 Clopidogrel Bisulfate (plaVIX) 75 mg DAILY PO Last administered on 09/22/16 08 :18; Admin Dose 75 MG; Start 09/17/16 at 09:00 Carisoprodol (Soma) 350 mg Q8H PRN PO MUSCLE SPASMS Last administered on 21:54; Admin Dose 350 MG; Start 09/17/16 at 07:00 Gabapentin (Neurontin) 300 mg BID PO Last administered on 09/22/16 08:21; Admin Dose 300 MG; Start 09/17/16 at 09:00 Duloxetine HCl (Cymbalta) 60 mg HS PO Last administered on 09/21/16 21:55; Admin Dose 60 MG; Start 09/17/16 at 21:00 Temazepam (Restoril) 15 mg HS PRN PO INSOMNIA Last administered on 09/21/16 23 :46; Admin Dose 15 MG; Start 09/17/16 at 23:45 Aspirin (Aspirin) 81 mg DAILY PO Last administered on 09/22/16 08:21; Admin Dose 81 MG; Start 09/20/16 at 09:00 Lorazepam (Ativan) 1 mg Q4H PRN PO ANXIETY Last administered on 09/21/16 23:46 ; Admin Dose 1 MG; Start 09/19/16 at 21:00 Miscellaneous Information 1 ea NOTE XX ; Start 09/20/16 at 07:00 Glucose (Glutose) 15 gm Q15M PRN PO DECREASED GLUCOSE; Start 09/20/16 at 07:00 Glucose (Glutose) 22.5 gm Q15M PRN PO DECREASED GLUCOSE; Start 09/20/16 at 07: 00 Dextrose (D50w Syringe) 25 ml Q15M PRN IV DECREASED GLUCOSE; Start 09/20/16 at 07:00 Dextrose (D50w Syringe) 50 ml Q15M PRN IV DECREASED GLUCOSE; Start 09/20/16 at 07:00 Glucagon (Glucagen) 1 mg Q15M PRN IM DECREASED GLUCOSE; Start 09/20/16 at 07:00 Glucose (Glutose) 15 gm Q15M PRN BUCCAL DECREASED GLUCOSE; Start 09/20/16 at 07 :00 Spironolactone (Aldactone) 25 mg DAILY PO Last administered on 09/22/16 08:21 ; Admin Dose 25 MG; Start 09/20/16 at 16:00 Clonidine (Catapres) 0.1 mg Q6H PRN PO ELEVATED BLOOD PRESSURE; Start 09/21/16 at 00:30 Hydralazine HCl (Apresoline) 25 mg Q6H PRN PO ELEVATED BLOOD PRESSURE Last administered on 09/22/16 01:38; Admin Dose 25 MG; Start 09/21/16 at 00:30 Lisinopril (Zestril) 40 mg DAILY PO Last administered on 09/22/16 08:21; Admin Dose 40 MG; Start 09/22/16 at 09:00 PEÑA CUBA MD Sep 22, 2016 09:50
--- NOTE | 2016-09-22 19:55 | PN ---
Date/Time of Note Date/Time of Note DATE: 09/22/16 TIME: 19:53 Assessment/Plan VTE Prophylaxis VTE Prophylaxis Intervention: other Lines/Catheters IV Catheter Type (from [facility]): Saline Lock Urinary Cath still in place: No Assessment/Plan Assessment/Plan - Dehydration, resolved. - TYSHAWN secondary to dehydration, hold lisinopril. - Acute on chronic diastolic congestive heart failure. Dr. Gaxiola is following in cardiology consultation. Continue Coreg. - Coronary artery disease, history of percutaneous coronary intervention or history of coronary bypass. Continue Plavix. - History of ventricular tachycardia,s/p implantable cardioverter defibrillator placement. - Thyroid disorder. Continue methimazole. - Dyslipidemia. - Hypertension. Continue Aldactone, hydralazine and clonidine as needed. Further recommendations based on clinical course. Plan of care discussed with Dr. Hannah. Subjective 24 Hr Interval Summary Respiratory: no complaints Cardiovascular: no complaints Gastrointestinal: no complaints Genitourinary: no complaints Musculoskeletal: no complaints Exam/Review of Systems Vital Signs Vitals Vital Signs Date Time Temp Pulse Resp B/P Pulse Ox O2 Delivery O2 Flow Rate FiO2 09/22/16 16:39 50 09/22/16 16:08 98.6 18 169/80 98 09/18/16 20:15 Nasal Cannula 2.0 Intake and Output 09/21/16 09/21/16 09/22/16 15:00 23:00 07:00 Intake Total 1000 ml 400 ml Output Total 600 ml Balance 1000 ml -200 ml Exam Constitutional: alert, oriented, well developed Psych: nl mood/affect Respiratory: clear to auscultation, normal air movement Cardiovascular: nl pulses, regular rate and rhythm Gastrointestinal: non-tender, soft Musculoskeletal: nl extremities to inspection 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: nl mental status, nl speech Results Result Diagram: 09/22/16 0649 09/22/16 0649 Results 24 hrs Laboratory Tests Test 09/22/16 06:49 White Blood Count 8.7 Red Blood Count 4.07 L Hemoglobin 11.5 L Hematocrit 37.8 L Mean Corpuscular Volume 92.9 Mean Corpuscular Hemoglobin 28.3 L Mean Corpuscular Hemoglobin Concent 30.4 L Red Cell Distribution Width 14.2 Platelet Count 243 Mean Platelet Volume 10.6 H Neutrophils % 56.8 Lymphocytes % 29.4 Monocytes % 10.1 Eosinophils % 2.4 Basophils % 0.6 Nucleated Red Blood Cells % 0.0 Neutrophils # 5.0 Lymphocytes # 2.6 Monocytes # 0.9 Eosinophils # 0.2 Basophils # 0.1 Nucleated Red Blood Cells # 0.0 Sodium Level 132 L Potassium Level 4.1 Chloride Level 98 Carbon Dioxide Level 35 H Anion Gap 3 L Blood Urea Nitrogen 19 Creatinine 1.23 Glucose Level 98 Calcium Level 9.6 Medications Medications Current Medications Carvedilol (Coreg) 25 mg BID PO Last administered on 09/22/16 08:17; Admin Dose 25 MG; Start 09/17/16 at 09:00 Linagliptin (Tradjenta) 5 mg DAILY PO Last administered on 09/22/16 08:19; Admin Dose 5 MG; Start 09/17/16 at 09:00 Prednisone (Prednisone) 4 mg DAILY PO Last administered on 09/22/16 08:19; Admin Dose 4 MG; Start 09/17/16 at 09:00 Atorvastatin Calcium (Lipitor) 40 mg HS PO Last administered on 09/21/16 21:55 ; Admin Dose 40 MG; Start 09/17/16 at 21:00 Clopidogrel Bisulfate (plaVIX) 75 mg DAILY PO Last administered on 09/22/16 08 :18; Admin Dose 75 MG; Start 09/17/16 at 09:00 Carisoprodol (Soma) 350 mg Q8H PRN PO MUSCLE SPASMS Last administered on 21:54; Admin Dose 350 MG; Start 09/17/16 at 07:00 Gabapentin (Neurontin) 300 mg BID PO Last administered on 09/22/16 08:21; Admin Dose 300 MG; Start 09/17/16 at 09:00 Duloxetine HCl (Cymbalta) 60 mg HS PO Last administered on 09/21/16 21:55; Admin Dose 60 MG; Start 09/17/16 at 21:00 Temazepam (Restoril) 15 mg HS PRN PO INSOMNIA Last administered on 09/21/16 23 :46; Admin Dose 15 MG; Start 09/17/16 at 23:45 Aspirin (Aspirin) 81 mg DAILY PO Last administered on 09/22/16 08:21; Admin Dose 81 MG; Start 09/20/16 at 09:00 Lorazepam (Ativan) 1 mg Q4H PRN PO ANXIETY Last administered on 09/21/16 23:46 ; Admin Dose 1 MG; Start 09/19/16 at 21:00 Miscellaneous Information 1 ea NOTE XX ; Start 09/20/16 at 07:00 Glucose (Glutose) 15 gm Q15M PRN PO DECREASED GLUCOSE; Start 09/20/16 at 07:00 Glucose (Glutose) 22.5 gm Q15M PRN PO DECREASED GLUCOSE; Start 09/20/16 at 07: 00 Dextrose (D50w Syringe) 25 ml Q15M PRN IV DECREASED GLUCOSE; Start 09/20/16 at 07:00 Dextrose (D50w Syringe) 50 ml Q15M PRN IV DECREASED GLUCOSE; Start 09/20/16 at 07:00 Glucagon (Glucagen) 1 mg Q15M PRN IM DECREASED GLUCOSE; Start 09/20/16 at 07:00 Glucose (Glutose) 15 gm Q15M PRN BUCCAL DECREASED GLUCOSE; Start 09/20/16 at 07 :00 Spironolactone (Aldactone) 25 mg DAILY PO Last administered on 09/22/16 08:21 ; Admin Dose 25 MG; Start 09/20/16 at 16:00 Hydralazine HCl (Apresoline) 25 mg Q6H PRN PO ELEVATED BLOOD PRESSURE Last administered on 09/22/16 01:38; Admin Dose 25 MG; Start 09/21/16 at 00:30 Lisinopril (Zestril) 40 mg DAILY PO Last administered on 09/22/16 08:21; Admin Dose 40 MG; Start 09/22/16 at 09:00 Clonidine (Catapres) 0.1 mg Q6H PRN PO SBP > 170; Start 09/22/16 at 10:00 THOMAS DYER Sep 22, 2016 19:55
[2016-09-22] MEDS: DULOXETINE 30 MG CAP DR PO SCH (21:12)
[2016-09-22] MEDS: ATORVASTATIN 40 MG TAB PO SCH (21:12)
[2016-09-23] VITALS (12 sets, daily range): BP systolic 122–150; BP diastolic 56–78; PULSE 69; RESP 14–19
[2016-09-23] MEDS: LORAZEPAM 1 MG TAB PO PRN ×2 (01:17→17:16)
[2016-09-23] MEDS: TEMAZEPAM 15 MG CAP PO PRN ×2 (01:26→23:02)
[2016-09-23] MEDS: METHIMAZOLE 5 MG TAB PO SCH ×2 (05:42→08:19)
[2016-09-23] MEDS: predniSONE 1 MG TAB PO SCH (08:14)
[2016-09-23] MEDS: SPIRONOLACTONE 25 MG TAB PO SCH (08:15)
[2016-09-23] MEDS: CLOPIDOGREL 75 MG TAB PO SCH (08:15)
[2016-09-23] MEDS: GABAPENTIN 300 MG CAP PO SCH ×2 (08:16→20:23)
[2016-09-23] MEDS: LISINOPRIL 20 MG TAB PO SCH (08:16)
[2016-09-23] MEDS: ASPIRIN 81 MG TAB PO SCH (08:17)
[2016-09-23] MEDS: LINAGLIPTIN 5 MG TABLET PO SCH (08:17)
[2016-09-23] MEDS: CARISOPRODOL 350 MG TAB PO PRN (16:58)
--- NOTE | 2016-09-23 18:02 | PN ---
Date/Time of Note Date/Time of Note DATE: 09/23/16 TIME: 18:01 Assessment/Plan VTE Prophylaxis VTE Prophylaxis Intervention: SCD's Lines/Catheters IV C[facility]ter Type (from [facility]): Saline Lock Urinary Cath still in place: No Assessment/Plan Chief Complaint/Hosp Course Patient's current continues to have blood pressure fluctuation, systolic BP was around 200 last night per RN, patient is restarted on lisinopril, continue to monitor, if patient is stable for 24 hours patient can be discharged home. ASSESSMENT AND PLAN: - Dehydration, resolved. - TYSHAWN secondary to dehydration. - Acute on chronic diastolic congestive heart failure. Dr. Gaxiola is following in cardiology consultation. Continue Coreg. - Coronary artery disease, history of percutaneous coronary intervention or history of coronary bypass. Continue Plavix. - History of ventricular tachycardia,s/p implantable cardioverter defibrillator placement. - Thyroid disorder. Continue methimazole. - Dyslipidemia. - Hypertension. Continue Aldactone, hydralazine and clonidine as needed. Further recommendations based on clinical course. Plan of care discussed with Dr. Hannah. Problems: Exam/Review of Systems Vital Signs Vitals Vital Signs Date Time Temp Pulse Resp B/P Pulse Ox O2 Delivery O2 Flow Rate FiO2 09/23/16 16:30 97.7 69 18 135/70 99 Intake and Output 09/22/16 09/22/16 09/23/16 15:00 23:00 07:00 Intake Total 700 ml 600 ml Balance 700 ml 600 ml Exam Constitutional: alert, oriented Psych: no complaints Head: normocephalic Neck: supple Respiratory: normal air movement Cardiovascular: nl pulses, regular rate and rhythm Gastrointestinal: non-tender, soft Extremities: normal pulses 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: nl mental status Results Result Diagram: 09/22/1649 09/22/1649 Medications Medications Current Medications Carvedilol (Coreg) 25 mg BID PO Last administered on 09/23/16 08:18; Admin Dose 25 MG; Start 09/17/16 at 09:00 Linagliptin (Tradjenta) 5 mg DAILY PO Last administered on 09/23/16 08:17; Admin Dose 5 MG; Start 09/17/16 at 09:00 Prednisone (Prednisone) 4 mg DAILY PO Last administered on 09/23/16 08:14; Admin Dose 4 MG; Start 09/17/16 at 09:00 Atorvastatin Calcium (Lipitor) 40 mg HS PO Last administered on 09/22/16 21:12 ; Admin Dose 40 MG; Start 09/17/16 at 21:00 Clopidogrel Bisulfate (plaVIX) 75 mg DAILY PO Last administered on 09/23/16 08 :15; Admin Dose 75 MG; Start 09/17/16 at 09:00 Carisoprodol (Soma) 350 mg Q8H PRN PO MUSCLE SPASMS Last administered on 16:58; Admin Dose 350 MG; Start 09/17/16 at 07:00 Gabapentin (Neurontin) 300 mg BID PO Last administered on 09/23/16 08:16; Admin Dose 300 MG; Start 09/17/16 at 09:00 Duloxetine HCl (Cymbalta) 60 mg HS PO Last administered on 09/22/16 21:12; Admin Dose 60 MG; Start 09/17/16 at 21:00 Temazepam (Restoril) 15 mg HS PRN PO INSOMNIA Last administered on 09/23/16 01 :26; Admin Dose 15 MG; Start 09/17/16 at 23:45 Aspirin (Aspirin) 81 mg DAILY PO Last administered on 09/23/16 08:17; Admin Dose 81 MG; Start 09/20/16 at 09:00 Lorazepam (Ativan) 1 mg Q4H PRN PO ANXIETY Last administered on 09/23/16 17:16 ; Admin Dose 1 MG; Start 09/19/16 at 21:00 Miscellaneous Information 1 ea NOTE XX ; Start 09/20/16 at 07:00 Glucose (Glutose) 15 gm Q15M PRN PO DECREASED GLUCOSE; Start 09/20/16 at 07:00 Glucose (Glutose) 22.5 gm Q15M PRN PO DECREASED GLUCOSE; Start 09/20/16 at 07: 00 Dextrose (D50w Syringe) 25 ml Q15M PRN IV DECREASED GLUCOSE; Start 09/20/16 at 07:00 Dextrose (D50w Syringe) 50 ml Q15M PRN IV DECREASED GLUCOSE; Start 09/20/16 at 07:00 Glucagon (Glucagen) 1 mg Q15M PRN IM DECREASED GLUCOSE; Start 09/20/16 at 07:00 Glucose (Glutose) 15 gm Q15M PRN BUCCAL DECREASED GLUCOSE; Start 09/20/16 at 07 :00 Spironolactone (Aldactone) 25 mg DAILY PO Last administered on 09/23/16 08:15 ; Admin Dose 25 MG; Start 09/20/16 at 16:00 Hydralazine HCl (Apresoline) 25 mg Q6H PRN PO ELEVATED BLOOD PRESSURE Last administered on 09/22/16 21:50; Admin Dose 25 MG; Start 09/21/16 at 00:30 Lisinopril (Zestril) 40 mg DAILY PO Last administered on 09/23/16 08:16; Admin Dose 40 MG; Start 09/22/16 at 09:00 Clonidine (Catapres) 0.1 mg Q6H PRN PO SBP > 170; Start 09/22/16 at 10:00 JOSE VELASQUEZ Sep 23, 2016 18:02
--- NOTE | 2016-09-23 19:24 | PN ---
Date/Time of Note Date/Time of Note DATE: 09/23/16 TIME: 19:22 Assessment/Plan VTE Prophylaxis VTE Prophylaxis Intervention: ambulation Lines/Catheters IV Catheter Type (from [facility]): [facility]ine Lock Urinary Cath still in place: No Assessment/Plan Chief Complaint/Hosp Course 1. CAD: S/P PA, CABG, PCI: stable with no angina cont ASA 2. hx VT: S/P ICD: STABLE NOW 3. HTN: cont coreg CONT lisinopril will cont aldactone clonidine prn as well 4. TYSHAWN: resolved now 5. hyslipidemia: cont statin 6. obesity: OK to dc from cardiac stand point pt advised to call my office to schedule for the outpt follow up. will f/u prn for now THANK YOU. Problems: Subjective 24 Hr Interval Summary Free Text/Dictation CARDIOLOGY FOLLOW UP PROGRESS NOTE: D/w staff and rhythm was reviewed. pt remains in NSR/ a paced no chest pain or pressure. no palpitations BP has been elevated yesterday but better today pt has c/o being anxious today to RN meds reviewed OBJECTIVE: Gen: OBESE man in no acute distress. HEENT: NC/AT Pupils are equal and round. NEURO: awake and alert, OX 3 nonfocal. CV : RRR. systolic murmur pulm: CTA b/l no wheezes. GI: soft obese NT ND. no rebound EXT: trace LE EDEMA Psych: calm and pleasant. Exam/Review of Systems Vital Signs Vitals Vital Signs Date Time Temp Pulse Resp B/P Pulse Ox O2 Delivery O2 Flow Rate FiO2 09/23/16 16:30 97.7 69 18 135/70 99 Intake and Output 09/22/16 09/22/16 09/23/16 15:00 23:00 07:00 Intake Total 700 ml 600 ml Balance 700 ml 600 ml Results Result Diagram: 09/22/16 0649 09/22/16 0649 Medications Medications Current Medications Carvedilol (Coreg) 25 mg BID PO Last administered on 09/23/16 08:18; Admin Dose 25 MG; Start 09/17/16 at 09:00 Linagliptin (Tradjenta) 5 mg DAILY PO Last administered on 09/23/16 08:17; Admin Dose 5 MG; Start 09/17/16 at 09:00 Prednisone (Prednisone) 4 mg DAILY PO Last administered on 09/23/16 08:14; Admin Dose 4 MG; Start 09/17/16 at 09:00 Atorvastatin Calcium (Lipitor) 40 mg HS PO Last administered on 09/22/16 21:12 ; Admin Dose 40 MG; Start 09/17/16 at 21:00 Clopidogrel Bisulfate (plaVIX) 75 mg DAILY PO Last administered on 09/23/16 08 :15; Admin Dose 75 MG; Start 09/17/16 at 09:00 Carisoprodol (Soma) 350 mg Q8H PRN PO MUSCLE SPASMS Last administered on 16:58; Admin Dose 350 MG; Start 09/17/16 at 07:00 Gabapentin (Neurontin) 300 mg BID PO Last administered on 09/23/16 08:16; Admin Dose 300 MG; Start 09/17/16 at 09:00 Duloxetine HCl (Cymbalta) 60 mg HS PO Last administered on 09/22/16 21:12; Admin Dose 60 MG; Start 09/17/16 at 21:00 Temazepam (Restoril) 15 mg HS PRN PO INSOMNIA Last administered on 09/23/16 01 :26; Admin Dose 15 MG; Start 09/17/16 at 23:45 Aspirin (Aspirin) 81 mg DAILY PO Last administered on 09/23/16 08:17; Admin Dose 81 MG; Start 09/20/16 at 09:00 Lorazepam (Ativan) 1 mg Q4H PRN PO ANXIETY Last administered on 09/23/16 17:16 ; Admin Dose 1 MG; Start 09/19/16 at 21:00 Miscellaneous Information 1 ea NOTE XX ; Start 09/20/16 at 07:00 Glucose (Glutose) 15 gm Q15M PRN PO DECREASED GLUCOSE; Start 09/20/16 at 07:00 Glucose (Glutose) 22.5 gm Q15M PRN PO DECREASED GLUCOSE; Start 09/20/16 at 07: 00 Dextrose (D50w Syringe) 25 ml Q15M PRN IV DECREASED GLUCOSE; Start 09/20/16 at 07:00 Dextrose (D50w Syringe) 50 ml Q15M PRN IV DECREASED GLUCOSE; Start 09/20/16 at 07:00 Glucagon (Glucagen) 1 mg Q15M PRN IM DECREASED GLUCOSE; Start 09/20/16 at 07:00 Glucose (Glutose) 15 gm Q15M PRN BUCCAL DECREASED GLUCOSE; Start 09/20/16 at 07 :00 Spironolactone (Aldactone) 25 mg DAILY PO Last administered on 09/23/16 08:15 ; Admin Dose 25 MG; Start 09/20/16 at 16:00 Hydralazine HCl (Apresoline) 25 mg Q6H PRN PO ELEVATED BLOOD PRESSURE Last administered on 09/22/16 21:50; Admin Dose 25 MG; Start 09/21/16 at 00:30 Lisinopril (Zestril) 40 mg DAILY PO Last administered on 09/23/16 08:16; Admin Dose 40 MG; Start 09/22/16 at 09:00 Clonidine (Catapres) 0.1 mg Q6H PRN PO SBP > 170; Start 09/22/16 at 10:00 PEÑA CUBA MD Sep 23, 2016 19:23
[2016-09-23] MEDS: ATORVASTATIN 40 MG TAB PO SCH (20:23)
[2016-09-23] MEDS: DULOXETINE 30 MG CAP DR PO SCH (20:23)
[2016-09-24] VITALS (14 sets, daily range): BP systolic 135–158; BP diastolic 60–76; PULSE 69–81; RESP 17–20
[2016-09-24] MEDS: GABAPENTIN 300 MG CAP PO SCH ×2 (08:39→20:47)
[2016-09-24] MEDS: SPIRONOLACTONE 25 MG TAB PO SCH (08:39)
[2016-09-24] MEDS: CLOPIDOGREL 75 MG TAB PO SCH (08:39)
[2016-09-24] MEDS: LINAGLIPTIN 5 MG TABLET PO SCH (08:39)
[2016-09-24] MEDS: predniSONE 1 MG TAB PO SCH (08:39)
[2016-09-24] MEDS: LISINOPRIL 20 MG TAB PO SCH (08:40)
[2016-09-24] MEDS: ASPIRIN 81 MG TAB PO SCH (08:40)
[2016-09-24 09:11] LABS: ADD SCAN DIFF NO
[2016-09-24 09:17] LABS: BASOPHILS % 0.4 % (0.0-2.0); EOSINOPHILS # 0.2 10^3/ul (0.0-0.5); EOSINOPHILS % 2.3 % (0.0-7.0); HEMATOCRIT 39.8 % (42.0-52.0); HEMOGLOBIN 12.1 g/dl (14.0-18.0); LYMPHOCYTES # 2.4 10^3/ul (0.8-2.9); LYMPHOCYTES % 26.3 % (15.0-51.0); MEAN CORPUSCULAR HEMOGLOBIN 28.5 pg (29.0-33.0); MEAN CORPUSCULAR HGB CONC 30.4 g/dl (32.0-37.0); MEAN CORPUSCULAR VOLUME 93.9 fl (82.0-101.0); MEAN PLATELET VOLUME 10.5 fl (7.4-10.4); MONOCYTES % 10.6 % (0.0-11.0); NEUTROPHIL # 5.5 10^3/ul (1.6-7.5); NEUTROPHILS % 59.7 % (39.0-77.0); PLATELET COUNT 273 10^3/UL (140-415); RED BLOOD COUNT 4.24 10^6/ul (4.70-6.10); RED CELL DISTRIBUTION WIDTH 14.2 % (11.5-14.5); WHITE BLOOD COUNT 9.2 10^3/ul (4.8-10.8)
[2016-09-24 09:34] LABS: CALCIUM 9.5 mg/dl (8.4-10.2); CREATININE 1.43 mg/dl (0.61-1.24); POTASSIUM 4.2 mmol/L (3.5-5.1)
[2016-09-24] MEDS: DULOXETINE 30 MG CAP DR PO SCH (20:47)
[2016-09-24] MEDS: ATORVASTATIN 40 MG TAB PO SCH (20:47)
[2016-09-24] MEDS: LORAZEPAM 1 MG TAB PO PRN (23:12)
[2016-09-24] MEDS: TEMAZEPAM 15 MG CAP PO PRN (23:12)
[2016-09-25] VITALS (13 sets, daily range): BP systolic 108–169; BP diastolic 54–79; PULSE 69–73; RESP 17–19
[2016-09-25] MEDS: METHIMAZOLE 5 MG TAB PO SCH (06:40)
[2016-09-25] MEDS: LINAGLIPTIN 5 MG TABLET PO SCH (08:08)
[2016-09-25] MEDS: SPIRONOLACTONE 25 MG TAB PO SCH (08:08)
[2016-09-25] MEDS: predniSONE 1 MG TAB PO SCH (08:08)
[2016-09-25] MEDS: GABAPENTIN 300 MG CAP PO SCH ×2 (08:08→21:13)
[2016-09-25] MEDS: ASPIRIN 81 MG TAB PO SCH (08:08)
[2016-09-25] MEDS: LISINOPRIL 20 MG TAB PO SCH (08:08)
[2016-09-25] MEDS: CLOPIDOGREL 75 MG TAB PO SCH (08:08)
[2016-09-25] MEDS ORDERED: GABAPENTIN 100 MG CAP PO ONE (12:30)
[2016-09-25] MEDS: SOD CHLORIDE 0.45% 1,000 ML IV SCH (13:56)
--- NOTE | 2016-09-25 18:34 | PN ---
Date/Time of Note Date/Time of Note DATE: 09/25/16 TIME: 18:32 Assessment/Plan Lines/Catheters IV Catheter Type (from [facility]): [facility] Urinary Cath still in place: No Assessment/Plan Assessment/Plan - Dehydration, resolved. - TYSHAWN secondary to dehydration. - Acute on chronic diastolic congestive heart failure. Dr. Gaxiola is following in cardiology consultation. Continue Coreg. - Coronary artery disease, history of percutaneous coronary intervention or history of coronary bypass. Continue Plavix. - History of ventricular tachycardia,s/p implantable cardioverter defibrillator placement. - Thyroid disorder. Continue methimazole. - Dyslipidemia. - Hypertension. Continue Aldactone, hydralazine and clonidine as needed. Further recommendations based on clinical course. Plan of care discussed with Dr. Hannah. Subjective 24 Hr Interval Summary Free Text/Dictation late entry 09/24/2016 Constitutional: requiring O2 Respiratory: shortness of breath Cardiovascular: no complaints Gastrointestinal: no complaints Genitourinary: no complaints Musculoskeletal: no complaints Exam/Review of Systems Vital Signs Vitals Vital Signs Date Time Temp Pulse Resp B/P Pulse Ox O2 Delivery O2 Flow Rate FiO2 09/25/16 16:06 69 09/25/16 15:52 98.3 17 126/59 92 Intake and Output 09/24/16 09/24/16 09/25/16 15:00 23:00 07:00 Intake Total 1200 ml 800 ml Balance 1200 ml 800 ml Exam Constitutional: alert, oriented, well developed Respiratory: clear to auscultation, normal air movement Cardiovascular: nl pulses, regular rate and rhythm Gastrointestinal: non-tender, soft Musculoskeletal: nl extremities to inspection 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: nl mental status, nl speech Skin: nl turgor Results Result Diagram: 09/24/1646 09/24/1646 Medications Medications Current Medications Carvedilol (Coreg) 25 mg BID PO Last administered on 09/25/16 08:08; Admin Dose 25 MG; Start 09/17/16 at 09:00 Linagliptin (Tradjenta) 5 mg DAILY PO Last administered on 09/25/16 08:08; Admin Dose 5 MG; Start 09/17/16 at 09:00 Prednisone (Prednisone) 4 mg DAILY PO Last administered on 09/25/16 08:08; Admin Dose 4 MG; Start 09/17/16 at 09:00 Atorvastatin Calcium (Lipitor) 40 mg HS PO Last administered on 09/24/16 20:47 ; Admin Dose 40 MG; Start 09/17/16 at 21:00 Clopidogrel Bisulfate (plaVIX) 75 mg DAILY PO Last administered on 09/25/16 08 :08; Admin Dose 75 MG; Start 09/17/16 at 09:00 Carisoprodol (Soma) 350 mg Q8H PRN PO MUSCLE SPASMS Last administered on 16:58; Admin Dose 350 MG; Start 09/17/16 at 07:00 Gabapentin (Neurontin) 300 mg BID PO Last administered on 09/25/16 08:08; Admin Dose 300 MG; Start 09/17/16 at 09:00 Duloxetine HCl (Cymbalta) 60 mg HS PO Last administered on 09/24/16 20:47; Admin Dose 60 MG; Start 09/17/16 at 21:00 Temazepam (Restoril) 15 mg HS PRN PO INSOMNIA Last administered on 09/24/16 23 :12; Admin Dose 15 MG; Start 09/17/16 at 23:45 Aspirin (Aspirin) 81 mg DAILY PO Last administered on 09/25/16 08:08; Admin Dose 81 MG; Start 09/20/16 at 09:00 Miscellaneous Information 1 ea NOTE XX ; Start 09/20/16 at 07:00 Glucose (Glutose) 15 gm Q15M PRN PO DECREASED GLUCOSE; Start 09/20/16 at 07:00 Glucose (Glutose) 22.5 gm Q15M PRN PO DECREASED GLUCOSE; Start 09/20/16 at 07: 00 Dextrose (D50w Syringe) 25 ml Q15M PRN IV DECREASED GLUCOSE; Start 09/20/16 at 07:00 Dextrose (D50w Syringe) 50 ml Q15M PRN IV DECREASED GLUCOSE; Start 09/20/16 at 07:00 Glucagon (Glucagen) 1 mg Q15M PRN IM DECREASED GLUCOSE; Start 09/20/16 at 07:00 Glucose (Glutose) 15 gm Q15M PRN BUCCAL DECREASED GLUCOSE; Start 09/20/16 at 07 :00 Spironolactone (Aldactone) 25 mg DAILY PO Last administered on 09/25/16 08:08 ; Admin Dose 25 MG; Start 7/11/17 at 16:00 Hydralazine HCl (Apresoline) 25 mg Q6H PRN PO ELEVATED BLOOD PRESSURE Last administered on 09/22/16 21:50; Admin Dose 25 MG; Start 09/21/16 at 00:30 Lisinopril (Zestril) 40 mg DAILY PO Last administered on 09/25/16 08:08; Admin Dose 40 MG; Start 09/22/16 at 09:00 Clonidine (Catapres) 0.1 mg Q6H PRN PO SBP > 170; Start 09/22/16 at 10:00 Lorazepam 0.5 mg 0.5 mg Q6H PRN PO ANXIETY; Start 09/25/16 at 14:00 Sodium Chloride (1/2 NS) 1,000 ml @ 75 mls/hr [id number] IV Last administered on 09/25/16 13:56; Admin Dose 75 MLS/HR; Start 09/25/16 at 14:00 THOMAS DYER Sep 25, 2016 18:34
--- NOTE | 2016-09-25 18:36 | PN ---
Date/Time of Note Date/Time of Note DATE: 09/25/16 TIME: 18:35 Assessment/Plan Lines/Catheters IV Catheter Type (from [facility]): [facility] Lock Urinary Cath still in place: No Assessment/Plan Assessment/Plan - Dehydration, resolved. - TYSHAWN secondary to dehydration. - Acute on chronic diastolic congestive heart failure. Dr. Gaxiola is following in cardiology consultation. Continue Coreg. - Coronary artery disease, history of percutaneous coronary intervention or history of coronary bypass. Continue Plavix. - History of ventricular tachycardia,s/p implantable cardioverter defibrillator placement. - Thyroid disorder. Continue methimazole. - Dyslipidemia. - Hypertension. Continue Aldactone, hydralazine and clonidine as needed. Further recommendations based on clinical course. Plan of care discussed with Dr. Hannah. Subjective 24 Hr Interval Summary Free Text/Dictation Late Entry=09/24/2016 Exam/Review of Systems Vital Signs Vitals Vital Signs Date Time Temp Pulse Resp B/P Pulse Ox O2 Delivery O2 Flow Rate FiO2 09/25/16 16:06 69 09/25/16 15:52 98.3 17 126/59 92 Intake and Output 09/24/16 09/24/16 09/25/16 15:00 23:00 07:00 Intake Total 1200 ml 800 ml Balance 1200 ml 800 ml Results Result Diagram: 09/24/16 0846 09/24/16 0846 Medications Medications Current Medications Carvedilol (Coreg) 25 mg BID PO Last administered on 09/25/16 08:08; Admin Dose 25 MG; Start 09/17/16 at 09:00 Linagliptin (Tradjenta) 5 mg DAILY PO Last administered on 09/25/16 08:08; Admin Dose 5 MG; Start 09/17/16 at 09:00 Prednisone (Prednisone) 4 mg DAILY PO Last administered on 09/25/16 08:08; Admin Dose 4 MG; Start 09/17/16 at 09:00 Atorvastatin Calcium (Lipitor) 40 mg HS PO Last administered on 09/24/16 20:47 ; Admin Dose 40 MG; Start 09/17/16 at 21:00 Clopidogrel Bisulfate (plaVIX) 75 mg DAILY PO Last administered on 09/25/16 08 :08; Admin Dose 75 MG; Start 09/17/16 at 09:00 Carisoprodol (Soma) 350 mg Q8H PRN PO MUSCLE SPASMS Last administered on 16:58; Admin Dose 350 MG; Start 09/17/16 at 07:00 Gabapentin (Neurontin) 300 mg BID PO Last administered on 09/25/16 08:08; Admin Dose 300 MG; Start 09/17/16 at 09:00 Duloxetine HCl (Cymbalta) 60 mg HS PO Last administered on 09/24/16 20:47; Admin Dose 60 MG; Start 09/17/16 at 21:00 Temazepam (Restoril) 15 mg HS PRN PO INSOMNIA Last administered on 09/24/16 23 :12; Admin Dose 15 MG; Start 09/17/16 at 23:45 Aspirin (Aspirin) 81 mg DAILY PO Last administered on 09/25/16 08:08; Admin Dose 81 MG; Start 09/20/16 at 09:00 Miscellaneous Information 1 ea NOTE XX ; Start 09/20/16 at 07:00 Glucose (Glutose) 15 gm Q15M PRN PO DECREASED GLUCOSE; Start 09/20/16 at 07:00 Glucose (Glutose) 22.5 gm Q15M PRN PO DECREASED GLUCOSE; Start 09/20/16 at 07: 00 Dextrose (D50w Syringe) 25 ml Q15M PRN IV DECREASED GLUCOSE; Start 09/20/16 at 07:00 Dextrose (D50w Syringe) 50 ml Q15M PRN IV DECREASED GLUCOSE; Start 09/20/16 at 07:00 Glucagon (Glucagen) 1 mg Q15M PRN IM DECREASED GLUCOSE; Start 09/20/16 at 07:00 Glucose (Glutose) 15 gm Q15M PRN BUCCAL DECREASED GLUCOSE; Start 09/20/16 at 07 :00 Spironolactone (Aldactone) 25 mg DAILY PO Last administered on 09/25/16 08:08 ; Admin Dose 25 MG; Start 09/20/16 at 16:00 Hydralazine HCl (Apresoline) 25 mg Q6H PRN PO ELEVATED BLOOD PRESSURE Last administered on 09/22/16 21:50; Admin Dose 25 MG; Start 09/21/16 at 00:30 Lisinopril (Zestril) 40 mg DAILY PO Last administered on 09/25/16 08:08; Admin Dose 40 MG; Start 09/22/16 at 09:00 Clonidine (Catapres) 0.1 mg Q6H PRN PO SBP > 170; Start 09/22/16 at 10:00 Lorazepam 0.5 mg 0.5 mg Q6H PRN PO ANXIETY; Start 09/25/16 at 14:00 Sodium Chloride (1/2 NS) 1,000 ml @ 75 mls/hr [id number] IV Last administered on 09/25/16t 13:56; Admin Dose 75 MLS/HR; Start 09/25/16 at 14:00 THOMAS DYER Sep 25, 2016 18:36
--- NOTE | 2016-09-25 18:39 | PN ---
Date/Time of Note Date/Time of Note DATE: 09/25/16 TIME: 18:36 Assessment/Plan Lines/Catheters IV Catheter Type (from [facility] [place]): Saline Lock Urinary Cath still in place: No Assessment/Plan Assessment/Plan - TYSHAWN. - Cr Elevated - on IVF- NS - cont to monitor - anticipate DC am -- Dehydration, resolved. - Acute on chronic diastolic congestive heart failure. Dr. Gaxiola is following in cardiology consultation. Continue Coreg. - Coronary artery disease, history of percutaneous coronary intervention or history of coronary bypass. Continue Plavix. - History of ventricular tachycardia,s/p implantable cardioverter defibrillator placement. - Thyroid disorder. Continue methimazole. - Dyslipidemia. - Hypertension. Continue Aldactone, hydralazine and clonidine as needed. Further recommendations based on clinical course. Plan of care discussed with Dr. Hannah. Exam/Review of Systems Vital Signs Vitals Vital Signs Date Time Temp Pulse Resp B/P Pulse Ox O2 Delivery O2 Flow Rate FiO2 09/25/16 16:06 69 09/25/16 15:52 98.3 17 126/59 92 Intake and Output 09/24/16 09/24/16 09/25/16 15:00 23:00 07:00 Intake Total 1200 ml 800 ml Balance 1200 ml 800 ml Exam Constitutional: alert, oriented, well developed Respiratory: clear to auscultation, diminished breath sounds, normal air movement Cardiovascular: nl pulses, regular rate and rhythm Gastrointestinal: non-tender, soft Musculoskeletal: nl extremities to inspection Extremities: normal pulses 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: nl mental status Results Result Diagram: 09/24/1646 09/24/1646 Medications Medications Current Medications Carvedilol (Coreg) 25 mg BID PO Last administered on 09/25/16 08:08; Admin Dose 25 MG; Start 09/17/16 at 09:00 Linagliptin (Tradjenta) 5 mg DAILY PO Last administered on 09/25/16 08:08; Admin Dose 5 MG; Start 09/17/16 at 09:00 Prednisone (Prednisone) 4 mg DAILY PO Last administered on 09/25/16 08:08; Admin Dose 4 MG; Start 09/17/16 at 09:00 Atorvastatin Calcium (Lipitor) 40 mg HS PO Last administered on 09/24/16 20:47 ; Admin Dose 40 MG; Start 09/17/16 at 21:00 Clopidogrel Bisulfate (plaVIX) 75 mg DAILY PO Last administered on 09/25/16 08 :08; Admin Dose 75 MG; Start 09/17/16 at 09:00 Carisoprodol (Soma) 350 mg Q8H PRN PO MUSCLE SPASMS Last administered on 16:58; Admin Dose 350 MG; Start 09/17/16 at 07:00 Gabapentin (Neurontin) 300 mg BID PO Last administered on 09/25/16 08:08; Admin Dose 300 MG; Start 09/17/16 at 09:00 Duloxetine HCl (Cymbalta) 60 mg HS PO Last administered on 09/24/16 20:47; Admin Dose 60 MG; Start 09/17/16 at 21:00 Temazepam (Restoril) 15 mg HS PRN PO INSOMNIA Last administered on 09/24/16 23 :12; Admin Dose 15 MG; Start 09/17/16 at 23:45 Aspirin (Aspirin) 81 mg DAILY PO Last administered on 09/25/16 08:08; Admin Dose 81 MG; Start 09/20/16 at 09:00 Miscellaneous Information 1 ea NOTE XX ; Start 09/20/16 at 07:00 Glucose (Glutose) 15 gm Q15M PRN PO DECREASED GLUCOSE; Start 09/20/16 at 07:00 Glucose (Glutose) 22.5 gm Q15M PRN PO DECREASED GLUCOSE; Start 09/20/16 at 07: 00 Dextrose (D50w Syringe) 25 ml Q15M PRN IV DECREASED GLUCOSE; Start 09/20/16 at 07:00 Dextrose (D50w Syringe) 50 ml Q15M PRN IV DECREASED GLUCOSE; Start 09/20/16 at 07:00 Glucagon (Glucagen) 1 mg Q15M PRN IM DECREASED GLUCOSE; Start 09/20/16 at 07:00 Glucose (Glutose) 15 gm Q15M PRN BUCCAL DECREASED GLUCOSE; Start 09/20/16 at 07 :00 Spironolactone (Aldactone) 25 mg DAILY PO Last administered on 09/25/16 08:08 ; Admin Dose 25 MG; Start 09/20/16 at 16:00 Hydralazine HCl (Apresoline) 25 mg Q6H PRN PO ELEVATED BLOOD PRESSURE Last administered on 7/13/17at 21:50; Admin Dose 25 MG; Start 09/21/16 at 00:30 Lisinopril (Zestril) 40 mg DAILY PO Last administered on 09/25/16 08:08; Admin Dose 40 MG; Start 09/22/16 at 09:00 Clonidine (Catapres) 0.1 mg Q6H PRN PO SBP > 170; Start 09/22/16 at 10:00 Lorazepam 0.5 mg 0.5 mg Q6H PRN PO ANXIETY; Start 09/25/16 at 14:00 Sodium Chloride (1/2 NS) 1,000 ml @ 75 mls/hr [id number] IV Last administered on 09/25/16 13:56; Admin Dose 75 MLS/HR; Start 09/25/16 at 14:00 THOMAS DYER Sep 25, 2016 18:38
[2016-09-25] MEDS: ATORVASTATIN 40 MG TAB PO SCH (21:13)
[2016-09-25] MEDS: DULOXETINE 30 MG CAP DR PO SCH (21:13)
[2016-09-25] MEDS: LORAZEPAM 0.5 MG TAB PO PRN (21:39)
[2016-09-25] MEDS: TEMAZEPAM 15 MG CAP PO PRN (23:08)
[2016-09-26] VITALS (10 sets, daily range): BP systolic 131–148; BP diastolic 65–82; PULSE 69–70; RESP 17–18
[2016-09-26] MEDS: CARISOPRODOL 350 MG TAB PO PRN ×2 (02:06→09:45)
[2016-09-26] MEDS: SOD CHLORIDE 0.45% 1,000 ML IV SCH ×2 (03:20→15:37)
[2016-09-26] MEDS: METHIMAZOLE 5 MG TAB PO SCH (05:58)
[2016-09-26 07:30] LABS: ADD SCAN DIFF NO
[2016-09-26 07:35] LABS: BASOPHIL # 0.1 10^3/ul (0.0-0.1); BASOPHILS % 0.6 % (0.0-2.0); EOSINOPHILS # 0.2 10^3/ul (0.0-0.5); EOSINOPHILS % 2.2 % (0.0-7.0); HEMATOCRIT 39.3 % (42.0-52.0); HEMOGLOBIN 12.1 g/dl (14.0-18.0); LYMPHOCYTES # 3.1 10^3/ul (0.8-2.9); LYMPHOCYTES % 31.2 % (15.0-51.0); MEAN CORPUSCULAR HEMOGLOBIN 28.6 pg (29.0-33.0); MEAN CORPUSCULAR HGB CONC 30.8 g/dl (32.0-37.0); MEAN CORPUSCULAR VOLUME 92.9 fl (82.0-101.0); MEAN PLATELET VOLUME 10.7 fl (7.4-10.4); MONOCYTE # 1.1 10^3/ul (0.3-0.9); MONOCYTES % 10.6 % (0.0-11.0); NEUTROPHIL # 5.4 10^3/ul (1.6-7.5); NEUTROPHILS % 54.8 % (39.0-77.0); PLATELET COUNT 264 10^3/UL (140-415); RED BLOOD COUNT 4.23 10^6/ul (4.70-6.10); RED CELL DISTRIBUTION WIDTH 13.8 % (11.5-14.5); WHITE BLOOD COUNT 9.9 10^3/ul (4.8-10.8)
[2016-09-26 08:34] LABS: CALCIUM 9.1 mg/dl (8.4-10.2); CREATININE 1.45 mg/dl (0.61-1.24); POTASSIUM 4.2 mmol/L (3.5-5.1)
[2016-09-26] MEDS: CLOPIDOGREL 75 MG TAB PO SCH (09:40)
[2016-09-26] MEDS: predniSONE 1 MG TAB PO SCH (09:40)
[2016-09-26] MEDS: ASPIRIN 81 MG TAB PO SCH (09:40)
[2016-09-26] MEDS: SPIRONOLACTONE 25 MG TAB PO SCH (09:41)
[2016-09-26] MEDS: GABAPENTIN 300 MG CAP PO SCH ×2 (09:42→20:45)
[2016-09-26] MEDS: LINAGLIPTIN 5 MG TABLET PO SCH (09:42)
[2016-09-26] MEDS: LISINOPRIL 20 MG TAB PO SCH (09:42)
--- NOTE | 2016-09-26 15:46 | PN ---
Date/Time of Note Date/Time of Note DATE: 09/26/16 TIME: 15:43 Assessment/Plan VTE Prophylaxis VTE Prophylaxis Intervention: SCD's Lines/Catheters IV C[facility]ter Type (from [facility] Sal[facility] Central line still needed: Yes Urinary Cath still in place: No Assessment/Plan Chief Complaint/Hosp Course Patient denies any chest pain, increase in creatinine noted, continue gentle IV hydration, BMP tomorrow. Blood pressure is better controlled. ASSESSMENT AND PLAN: - Dehydration, resolved. - TYSHAWN secondary to dehydration. - Acute on chronic diastolic congestive heart failure. Dr. Gaxiola is following in cardiology consultation. Continue Coreg. - Coronary artery disease, history of percutaneous coronary intervention or history of coronary bypass. Continue Plavix. - History of ventricular tachycardia,s/p implantable cardioverter defibrillator placement. - Thyroid disorder. Continue methimazole. - Dyslipidemia. - Hypertension. Continue Aldactone, hydralazine and clonidine as needed. Further recommendations based on clinical course. Plan of care discussed with Dr. Hannah. Problems: Exam/Review of Systems Vital Signs Vitals Vital Signs Date Time Temp Pulse Resp B/P Pulse Ox O2 Delivery O2 Flow Rate FiO2 09/26/16 15:35 98.1 70 17 135/77 97 Intake and Output 09/25/16 09/25/16 09/26/16 15:00 23:00 07:00 Intake Total 1337.5 ml 600 ml Output Total 1100 ml 1200 ml Balance 237.5 ml -600 ml Exam Constitutional: alert, oriented Psych: no complaints Head: normocephalic Neck: supple Respiratory: normal air movement Cardiovascular: nl pulses Gastrointestinal: non-tender, soft Extremities: normal pulses 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: nl mental status Results Result Diagram: 09/26/16 0555 09/26/16 0555 Results 24 hrs Laboratory Tests Test 09/26/16 05:55 White Blood Count 9.9 Red Blood Count 4.23 L Hemoglobin 12.1 L Hematocrit 39.3 L Mean Corpuscular Volume 92.9 Mean Corpuscular Hemoglobin 28.6 L Mean Corpuscular Hemoglobin Concent 30.8 L Red Cell Distribution Width 13.8 Platelet Count 264 Mean Platelet Volume 10.7 H Neutrophils % 54.8 Lymphocytes % 31.2 Monocytes % 10.6 Eosinophils % 2.2 Basophils % 0.6 Nucleated Red Blood Cells % 0.0 Neutrophils # 5.4 Lymphocytes # 3.1 H Monocytes # 1.1 H Eosinophils # 0.2 Basophils # 0.1 Nucleated Red Blood Cells # 0.0 Sodium Level 143 Potassium Level 4.2 Chloride Level 101 Carbon Dioxide Level 29 Anion Gap 17 H Blood Urea Nitrogen 25 H Creatinine 1.45 H Glucose Level 110 Calcium Level 9.1 Medications Medications Current Medications Carvedilol (Coreg) 25 mg BID PO Last administered on 09/26/16 09:41; Admin Dose 25 MG; Start 09/17/16 at 09:00 Linagliptin (Tradjenta) 5 mg DAILY PO Last administered on 09/26/16 09:42; Admin Dose 5 MG; Start 09/17/16 at 09:00 Prednisone (Prednisone) 4 mg DAILY PO Last administered on 09/26/16 09:40; Admin Dose 4 MG; Start 09/17/16 at 09:00 Atorvastatin Calcium (Lipitor) 40 mg HS PO Last administered on 09/25/16 21:13 ; Admin Dose 40 MG; Start 09/17/16 at 21:00 Clopidogrel Bisulfate (plaVIX) 75 mg DAILY PO Last administered on 09/26/16 09 :40; Admin Dose 75 MG; Start 09/17/16 at 09:00 Carisoprodol (Soma) 350 mg Q8H PRN PO MUSCLE SPASMS Last administered on 09:45; Admin Dose 350 MG; Start 09/17/16 at 07:00 Gabapentin (Neurontin) 300 mg BID PO Last administered on 09/26/16 09:42; Admin Dose 300 MG; Start 09/17/16 at 09:00 Duloxetine HCl (Cymbalta) 60 mg HS PO Last administered on 09/25/16 21:13; Admin Dose 60 MG; Start 09/17/16 at 21:00 Temazepam (Restoril) 15 mg HS PRN PO INSOMNIA Last administered on 09/25/16 23 :08; Admin Dose 15 MG; Start 09/17/16 at 23:45 Aspirin (Aspirin) 81 mg DAILY PO Last administered on 09/26/16 09:40; Admin Dose 81 MG; Start 09/20/16 at 09:00 Miscellaneous Information 1 ea NOTE XX ; Start 09/20/16 at 07:00 Glucose (Glutose) 15 gm Q15M PRN PO DECREASED GLUCOSE; Start 09/20/16 at 07:00 Glucose (Glutose) 22.5 gm Q15M PRN PO DECREASED GLUCOSE; Start 09/20/16 at 07: 00 Dextrose (D50w Syringe) 25 ml Q15M PRN IV DECREASED GLUCOSE; Start 09/20/16 at 07:00 Dextrose (D50w Syringe) 50 ml Q15M PRN IV DECREASED GLUCOSE; Start 09/20/16 at 07:00 Glucagon (Glucagen) 1 mg Q15M PRN IM DECREASED GLUCOSE; Start 09/20/16 at 07:00 Glucose (Glutose) 15 gm Q15M PRN BUCCAL DECREASED GLUCOSE; Start 09/20/16 at 07 :00 Spironolactone (Aldactone) 25 mg DAILY PO Last administered on 09/26/16 09:41 ; Admin Dose 25 MG; Start 09/20/16 at 16:00 Hydralazine HCl (Apresoline) 25 mg Q6H PRN PO ELEVATED BLOOD PRESSURE Last administered on 09/22/16 21:50; Admin Dose 25 MG; Start 09/21/16 at 00:30 Lisinopril (Zestril) 40 mg DAILY PO Last administered on 09/26/16 09:42; Admin Dose 40 MG; Start 09/22/16 at 09:00 Clonidine (Catapres) 0.1 mg Q6H PRN PO SBP > 170; Start 09/22/16 at 10:00 Lorazepam 0.5 mg 0.5 mg Q6H PRN PO ANXIETY Last administered on 09/25/16 21:39 ; Admin Dose 0.5 MG; Start 09/25/16 at 14:00 Sodium Chloride (1/2 NS) 1,000 ml @ 75 mls/hr [id number] IV Last administered on 09/26/16 15:37; Admin Dose 75 MLS/HR; Start 09/25/16 at 14:00 JOSE VELASQUEZ Sep 26, 2016 15:46
--- NOTE | 2016-09-26 18:57 | PN ---
Date/Time of Note Date/Time of Note DATE: 09/26/16 TIME: 18:56 Assessment/Plan VTE Prophylaxis VTE Prophylaxis Intervention: ambulation Lines/Catheters IV C[facility]ter Type (from [facility]): Saline Lock Urinary Cath still in place: No Assessment/Plan Chief Complaint/Hosp Course 1. CAD: S/P [place], CABG, PCI: stable with no angina cont ASA 2. hx VT: S/P ICD: STABLE NOW 3. HTN: cont coreg CONT lisinopril will cont aldactone clonidine prn as well 4. TYSHAWN: resolved now 5. hyslipidemia: cont statin 6. obesity: 7. Hx of CHF: WILL dc IV fluid to avoid fluid overload now that pt is eating well THANK YOU. Problems: Subjective 24 Hr Interval Summary Free Text/Dictation CARDIOLOGY FOLLOW UP PROGRESS NOTE: D/w staff and rhythm was reviewed. pt remains in NSR/ a paced no chest pain or pressure. no palpitations BP has been more stable today meds reviewed OBJECTIVE: Gen: OBESE man in no acute distress. HEENT: NC/AT Pupils are equal and round. NEURO: awake and alert, OX 3 nonfocal. CV : RRR. systolic murmur pulm: CTA b/l no wheezes. GI: soft obese NT ND. no rebound EXT: trace LE EDEMA Psych: calm and pleasant. Exam/Review of Systems Vital Signs Vitals Vital Signs Date Time Temp Pulse Resp B/P Pulse Ox O2 Delivery O2 Flow Rate FiO2 09/26/16 16:18 69 09/26/16 15:35 98.1 17 135/77 97 Intake and Output 09/25/16 09/25/16 09/26/16 15:00 23:00 07:00 Intake Total 1337.5 ml 600 ml Output Total 1100 ml 1200 ml Balance 237.5 ml -600 ml Results Result Diagram: 09/26/16 0555 09/26/16 0555 Results 24 hrs Laboratory Tests Test 09/26/16 05:55 White Blood Count 9.9 Red Blood Count 4.23 L Hemoglobin 12.1 L Hematocrit 39.3 L Mean Corpuscular Volume 92.9 Mean Corpuscular Hemoglobin 28.6 L Mean Corpuscular Hemoglobin Concent 30.8 L Red Cell Distribution Width 13.8 Platelet Count 264 Mean Platelet Volume 10.7 H Neutrophils % 54.8 Lymphocytes % 31.2 Monocytes % 10.6 Eosinophils % 2.2 Basophils % 0.6 Nucleated Red Blood Cells % 0.0 Neutrophils # 5.4 Lymphocytes # 3.1 H Monocytes # 1.1 H Eosinophils # 0.2 Basophils # 0.1 Nucleated Red Blood Cells # 0.0 Sodium Level 143 Potassium Level 4.2 Chloride Level 101 Carbon Dioxide Level 29 Anion Gap 17 H Blood Urea Nitrogen 25 H Creatinine 1.45 H Glucose Level 110 Calcium Level 9.1 Medications Medications Current Medications Carvedilol (Coreg) 25 mg BID PO Last administered on 09/26/16 09:41; Admin Dose 25 MG; Start 09/17/16 at 09:00 Linagliptin (Tradjenta) 5 mg DAILY PO Last administered on 09/26/16 09:42; Admin Dose 5 MG; Start 09/17/16 at 09:00 Prednisone (Prednisone) 4 mg DAILY PO Last administered on 09/26/16 09:40; Admin Dose 4 MG; Start 09/17/16 at 09:00 Atorvastatin Calcium (Lipitor) 40 mg HS PO Last administered on 09/25/16 21:13 ; Admin Dose 40 MG; Start 09/17/16 at 21:00 Clopidogrel Bisulfate (plaVIX) 75 mg DAILY PO Last administered on 09/26/16 09 :40; Admin Dose 75 MG; Start 09/17/16 at 09:00 Carisoprodol (Soma) 350 mg Q8H PRN PO MUSCLE SPASMS Last administered on 09:45; Admin Dose 350 MG; Start 09/17/16 at 07:00 Gabapentin (Neurontin) 300 mg BID PO Last administered on 09/26/16 09:42; Admin Dose 300 MG; Start 09/17/16 at 09:00 Duloxetine HCl (Cymbalta) 60 mg HS PO Last administered on 09/25/16 21:13; Admin Dose 60 MG; Start 09/17/16 at 21:00 Temazepam (Restoril) 15 mg HS PRN PO INSOMNIA Last administered on 09/25/16 23 :08; Admin Dose 15 MG; Start 09/17/16 at 23:45 Aspirin (Aspirin) 81 mg DAILY PO Last administered on 09/26/16 09:40; Admin Dose 81 MG; Start 09/20/16 at 09:00 Miscellaneous Information 1 ea NOTE XX ; Start 09/20/16 at 07:00 Glucose (Glutose) 15 gm Q15M PRN PO DECREASED GLUCOSE; Start 09/20/16 at 07:00 Glucose (Glutose) 22.5 gm Q15M PRN PO DECREASED GLUCOSE; Start 09/20/16 at 07: 00 Dextrose (D50w Syringe) 25 ml Q15M PRN IV DECREASED GLUCOSE; Start 09/20/16 at 07:00 Dextrose (D50w Syringe) 50 ml Q15M PRN IV DECREASED GLUCOSE; Start 09/20/16 at 07:00 Glucagon (Glucagen) 1 mg Q15M PRN IM DECREASED GLUCOSE; Start 09/20/16 at 07:00 Glucose (Glutose) 15 gm Q15M PRN BUCCAL DECREASED GLUCOSE; Start 09/20/16 at 07 :00 Spironolactone (Aldactone) 25 mg DAILY PO Last administered on 09/26/16 09:41 ; Admin Dose 25 MG; Start 09/20/16 at 16:00 Hydralazine HCl (Apresoline) 25 mg Q6H PRN PO ELEVATED BLOOD PRESSURE Last administered on 09/22/16 21:50; Admin Dose 25 MG; Start 09/21/16 at 00:30 Lisinopril (Zestril) 40 mg DAILY PO Last administered on 09/26/16 09:42; Admin Dose 40 MG; Start 09/22/16 at 09:00 Clonidine (Catapres) 0.1 mg Q6H PRN PO SBP > 170; Start 09/22/16 at 10:00 Lorazepam 0.5 mg 0.5 mg Q6H PRN PO ANXIETY Last administered on 09/25/16 21:39 ; Admin Dose 0.5 MG; Start 09/25/16 at 14:00 Sodium Chloride (1/2 NS) 1,000 ml @ 75 mls/hr [id number] IV Last administered on 09/26/16 15:37; Admin Dose 75 MLS/HR; Start 09/25/16 at 14:00 PEÑA CUBA MD Sep 26, 2016 18:57
[2016-09-26] MEDS: ATORVASTATIN 40 MG TAB PO SCH (20:45)
[2016-09-26] MEDS: DULOXETINE 30 MG CAP DR PO SCH (20:45)
[2016-09-26] MEDS: LORAZEPAM 0.5 MG TAB PO PRN (23:06)
[2016-09-27] VITALS (8 sets, daily range): BP systolic 104–135; BP diastolic 56–70; PULSE 69; RESP 15–18
[2016-09-27] MEDS: TEMAZEPAM 15 MG CAP PO PRN (00:50)
[2016-09-27] MEDS: METHIMAZOLE 5 MG TAB PO SCH (06:19)
[2016-09-27 07:59] LABS: ADD SCAN DIFF NO
[2016-09-27 08:05] LABS: BASOPHIL # 0.1 10^3/ul (0.0-0.1); BASOPHILS % 0.6 % (0.0-2.0); EOSINOPHILS # 0.2 10^3/ul (0.0-0.5); HEMATOCRIT 40.4 % (42.0-52.0); HEMOGLOBIN 12.5 g/dl (14.0-18.0); LYMPHOCYTES # 3.2 10^3/ul (0.8-2.9); LYMPHOCYTES % 31.8 % (15.0-51.0); MEAN CORPUSCULAR HEMOGLOBIN 28.7 pg (29.0-33.0); MEAN CORPUSCULAR HGB CONC 30.9 g/dl (32.0-37.0); MEAN CORPUSCULAR VOLUME 92.7 fl (82.0-101.0); MEAN PLATELET VOLUME 10.6 fl (7.4-10.4); MONOCYTE # 1.2 10^3/ul (0.3-0.9); MONOCYTES % 11.7 % (0.0-11.0); NEUTROPHIL # 5.4 10^3/ul (1.6-7.5); PLATELET COUNT 272 10^3/UL (140-415); RED BLOOD COUNT 4.36 10^6/ul (4.70-6.10); RED CELL DISTRIBUTION WIDTH 13.9 % (11.5-14.5); WHITE BLOOD COUNT 10.1 10^3/ul (4.8-10.8)
[2016-09-27 08:33] LABS: CALCIUM 9.2 mg/dl (8.4-10.2); CREATININE 1.38 mg/dl (0.61-1.24); POTASSIUM 4.4 mmol/L (3.5-5.1)
[2016-09-27] MEDS: predniSONE 1 MG TAB PO SCH (08:39)
[2016-09-27] MEDS: CLOPIDOGREL 75 MG TAB PO SCH (08:40)
[2016-09-27] MEDS: LISINOPRIL 20 MG TAB PO SCH (08:41)
[2016-09-27] MEDS: LINAGLIPTIN 5 MG TABLET PO SCH (08:42)
[2016-09-27] MEDS: SPIRONOLACTONE 25 MG TAB PO SCH (08:42)
[2016-09-27] MEDS: GABAPENTIN 300 MG CAP PO SCH (08:42)
[2016-09-27] MEDS: ASPIRIN 81 MG TAB PO SCH (08:42)
--- NOTE | 2016-09-27 09:29 | PN ---
Date/Time of Note Date/Time of Note DATE: 09/27/16 TIME: 09:28 Assessment/Plan VTE Prophylaxis VTE Prophylaxis Intervention: ambulation Lines/Catheters IV C[facility]ter Type (from [facility]): Saline Lock Urinary Cath still in place: No Assessment/Plan Chief Complaint/Hosp Course 1. CAD: S/P [place], CABG, PCI: stable with no angina cont ASA 2. hx VT: S/P ICD: STABLE NOW 3. HTN: cont coreg CONT lisinopril will cont aldactone clonidine prn as well 4. TYSHAWN: improved now 5. dyslipidemia: cont statin 6. obesity: 7. Hx of CHF: stable now avoid fluid overload. THANK YOU. Problems: Subjective 24 Hr Interval Summary Free Text/Dictation CARDIOLOGY FOLLOW UP PROGRESS NOTE: D/w staff and rhythm was reviewed. pt remains in NSR/ a paced no chest pain or pressure. no palpitations BP has been more stable today he states he is able to walk meds reviewed OBJECTIVE: Gen: OBESE man in no acute distress. HEENT: NC/AT Pupils are equal and round. NEURO: awake and alert, OX 3 nonfocal. CV : RRR. systolic murmur pulm: CTA b/l no wheezes. GI: soft obese NT ND. no rebound EXT: trace LE EDEMA Psych: calm and pleasant. Exam/Review of Systems Vital Signs Vitals Vital Signs Date Time Temp Pulse Resp B/P Pulse Ox O2 Delivery O2 Flow Rate FiO2 09/27/16 08:18 69 09/27/16 07:40 98.1 18 114/56 93 Intake and Output 09/26/16 09/26/16 09/27/16 15:00 23:00 07:00 Intake Total 1650 ml 600 ml Output Total 650 ml Balance 1000 ml 600 ml Results Result Diagram: 09/27/16 0721 09/27/16 0721 Results 24 hrs Laboratory Tests Test 09/27/16 07:21 White Blood Count 10.1 Red Blood Count 4.36 L Hemoglobin 12.5 L Hematocrit 40.4 L Mean Corpuscular Volume 92.7 Mean Corpuscular Hemoglobin 28.7 L Mean Corpuscular Hemoglobin Concent 30.9 L Red Cell Distribution Width 13.9 Platelet Count 272 Mean Platelet Volume 10.6 H Neutrophils % 53.0 Lymphocytes % 31.8 Monocytes % 11.7 H Eosinophils % 2.0 Basophils % 0.6 Nucleated Red Blood Cells % 0.0 Neutrophils # 5.4 Lymphocytes # 3.2 H Monocytes # 1.2 H Eosinophils # 0.2 Basophils # 0.1 Nucleated Red Blood Cells # 0.0 Sodium Level 141 Potassium Level 4.4 Chloride Level 102 Carbon Dioxide Level 25 Anion Gap 18 H Blood Urea Nitrogen 25 H Creatinine 1.38 H Glucose Level 87 Calcium Level 9.2 Medications Medications Current Medications Carvedilol (Coreg) 25 mg BID PO Last administered on 09/27/16 08:41; Admin Dose 25 MG; Start 09/17/16 at 09:00 Linagliptin (Tradjenta) 5 mg DAILY PO Last administered on 09/27/16 08:42; Admin Dose 5 MG; Start 09/17/16 at 09:00 Prednisone (Prednisone) 4 mg DAILY PO Last administered on 09/27/16 08:39; Admin Dose 4 MG; Start 09/17/16 at 09:00 Atorvastatin Calcium (Lipitor) 40 mg HS PO Last administered on 09/26/16 20:45 ; Admin Dose 40 MG; Start 09/17/16 at 21:00 Clopidogrel Bisulfate (plaVIX) 75 mg DAILY PO Last administered on 09/27/16 08 :40; Admin Dose 75 MG; Start 09/17/16 at 09:00 Carisoprodol (Soma) 350 mg Q8H PRN PO MUSCLE SPASMS Last administered on 09:45; Admin Dose 350 MG; Start 09/17/16 at 07:00 Gabapentin (Neurontin) 300 mg BID PO Last administered on 09/27/16 08:42; Admin Dose 300 MG; Start 09/17/16 at 09:00 Duloxetine HCl (Cymbalta) 60 mg HS PO Last administered on 09/26/16 20:45; Admin Dose 60 MG; Start 09/17/16 at 21:00 Temazepam (Restoril) 15 mg HS PRN PO INSOMNIA Last administered on 09/27/16 00 :50; Admin Dose 15 MG; Start 09/17/16 at 23:45 Aspirin (Aspirin) 81 mg DAILY PO Last administered on 09/27/16 08:42; Admin Dose 81 MG; Start 09/20/16 at 09:00 Miscellaneous Information 1 ea NOTE XX ; Start 09/20/16 at 07:00 Glucose (Glutose) 15 gm Q15M PRN PO DECREASED GLUCOSE; Start 09/20/16 at 07:00 Glucose (Glutose) 22.5 gm Q15M PRN PO DECREASED GLUCOSE; Start 09/20/16 at 07: 00 Dextrose (D50w Syringe) 25 ml Q15M PRN IV DECREASED GLUCOSE; Start 09/20/16 at 07:00 Dextrose (D50w Syringe) 50 ml Q15M PRN IV DECREASED GLUCOSE; Start 09/20/16 at 07:00 Glucagon (Glucagen) 1 mg Q15M PRN IM DECREASED GLUCOSE; Start 09/20/16 at 07:00 Glucose (Glutose) 15 gm Q15M PRN BUCCAL DECREASED GLUCOSE; Start 09/20/16 at 07 :00 Spironolactone (Aldactone) 25 mg DAILY PO Last administered on 09/27/16 08:42 ; Admin Dose 25 MG; Start 09/20/16 at 16:00 Hydralazine HCl (Apresoline) 25 mg Q6H PRN PO ELEVATED BLOOD PRESSURE Last administered on 09/22/16 21:50; Admin Dose 25 MG; Start 09/21/16 at 00:30 Lisinopril (Zestril) 40 mg DAILY PO Last administered on 09/27/16 08:41; Admin Dose 40 MG; Start 09/22/16 at 09:00 Clonidine (Catapres) 0.1 mg Q6H PRN PO SBP > 170; Start 09/22/16 at 10:00 Lorazepam (Ativan) 0.5 mg Q6H PRN PO ANXIETY Last administered on 09/26/16 23: 06; Admin Dose 0.5 MG; Start 09/25/16 at 14:00 PEÑA CUBA MD Sep 27, 2016 09:29
[2016-09-27] MEDS ORDERED: RES15 PO (16:20)
[2016-09-27] MEDS ORDERED: PRED1TAB17 PO (16:20)
[2016-09-27] MEDS ORDERED: SPIR25TA PO (16:20)
[2016-09-27] MEDS ORDERED: LISI20TA11 PO (16:20)
--- NOTE | 2016-09-27 19:17 | DS ---
Date/Time of Note Date/Time of Note DATE: 09/27/16 TIME: 19:14 Discharge Summary Admission/Discharge Info Admit Date/Time Sep 17, 2016 at 04:20 Discharge Date/Time Patient Condition: Good Hx of Present Illness Patient with hypertension, coronary artery disease, chronic back pain comes with weakness and hypotension. Patient was found to be hypotensive and weakness. Patient will be admitted for intravenous fluids and further evaluation to rule out evidence of sepsis Hospital Course - Dehydration, resolved. - TYSHAWN secondary to dehydration. - Acute on chronic diastolic congestive heart failure. Dr. Gaxiola is following in cardiology consultation. Continue Coreg. - Coronary artery disease, history of percutaneous coronary intervention or history of coronary bypass. Continue Plavix. - History of ventricular tachycardia,s/p implantable cardioverter defibrillator placement. - Thyroid disorder. Continue methimazole. - Dyslipidemia. - Hypertension. Continue Aldactone, hydralazine and clonidine as needed. Home Meds Active Scripts Temazepam (Restoril) 15 Mg Cap, 15 MG PO HS Y for INSOMNIA for 30 Days, CAP Prov:JOSE VELASQUEZ 09/27/16 Prednisone* (Prednisone*) 1 Mg Tab, 4 MG PO DAILY for 30 Days, TAB Prov:JOSE VELASQUEZ 09/27/16 Spironolactone* (Aldactone*) 25 Mg Tablet, 25 MG PO DAILY for 30 Days, TAB Prov:JOSE VELASQUEZ 09/27/16 Lisinopril* (Lisinopril*) 20 Mg Tablet, 40 MG PO DAILY for 30 Days, TAB Prov:JOSE VELASQUEZ 09/27/16 Atorvastatin* (Atorvastatin*) 40 Mg Tablet, 40 MG PO DAILY for 30 Days, TAB Prov:JOSE VELASQUEZ 04/22/16 Methimazole* (Methimazole*) 5 Mg Tablet, 10 MG PO DAILY for 30 Days, TAB Prov:JOSE VELASQUEZ 04/22/16 Linagliptin (TRADJENTA) 5 Mg Tablet, 5 MG PO DAILY for 30 Days, TAB Prov:JOSE VELASQUEZ 04/22/16 Carvedilol* (Coreg*) 25 Mg Tab, 25 MG PO BID for 30 Days, TAB Prov:JOSE VELASQUEZ 07/15/15 Aspirin (Aspirin) 81 Mg Chew, 81 MG PO DAILY for 30 Days Prov:LINDA ARDON 12/22/14 Reported Medications Duloxetine Hcl* (Duloxetine Hcl*) 60 Mg Capsule.dr, 60 MG PO QHS, #30 CAP 03/26/16 Gabapentin* (Gabapentin*) 300 Mg Capsule, 300 MG PO BID, #60 CAP 03/26/16 Carisoprodol* (Carisoprodol*) 350 Mg Tablet, 350 MG PO BID, TAB 06/12/15 Clopidogrel Bisulfate (Clopidogrel) 75 Mg Tablet, 75 MG PO DAILY, #30 TAB 02/17/15 Clonidine Hcl (KAPVAY) 0.1 Mg Tab.er.12h, 0.1 MG PO BID Y for ELEVATED BLOOD PRESSURE GIVE IF BLOOD PRESSURE IS 150/90 11/12/12 Discontinued Reported Medications Lisinopril* (Lisinopril*) 20 Mg Tablet, 20 MG PO DAILY, #30 TAB 03/26/16 Discontinued Scripts Prednisone (Prednisone) 50 Mg Tab, 50 MG PO DAILY for 14 Days, TAB Prov:JOSE VELASQUEZ 04/22/16 Follow-up Plan Follow-up with PMD in 1- 2 weeks. BMP in 1 week. Primary Care Provider Benny Hannah MD Time spent on discharge: > 30 minutes Pending Labs Laboratory Tests Test 09/27/16 07:21 White Blood Count 10.110^3/ul (4.8-10.8) Red Blood Count 4.3610^6/ul (4.70-6.10) Hemoglobin 12.5g/dl (14.0-18.0) Hematocrit 40.4% (42.0-52.0) Mean Corpuscular Volume 92.7fl (82.0-101.0) Mean Corpuscular Hemoglobin 28.7pg (29.0-33.0) Mean Corpuscular Hemoglobin Concent 30.9g/dl (32.0-37.0) Red Cell Distribution Width 13.9% (11.5-14.5) Platelet Count 32545^3/UL (140-415) Mean Platelet Volume 10.6fl (7.4-10.4) Neutrophils % 53.0% (39.0-77.0) Lymphocytes % 31.8% (15.0-51.0) Monocytes % 11.7% (0.0-11.0) Eosinophils % 2.0% (0.0-7.0) Basophils % 0.6% (0.0-2.0) Nucleated Red Blood Cells % 0.0/100WBC (0.0-0.0) Neutrophils # 5.410^3/ul (1.6-7.5) Lymphocytes # 3.210^3/ul (0.8-2.9) Monocytes # 1.210^3/ul (0.3-0.9) Eosinophils # 0.210^3/ul (0.0-0.5) Basophils # 0.110^3/ul (0.0-0.1) Nucleated Red Blood Cells # 0.010^3/ul (0.0-0.0) Sodium Level 141mmol/L (135-144) Potassium Level 4.4mmol/L (3.5-5.1) Chloride Level 102mmol/L (97-110) Carbon Dioxide Level 25mmol/L (21-31) Anion Gap 18 (8-16) Blood Urea Nitrogen 25mg/dl (7-20) Creatinine 1.38mg/dl (0.61-1.24) Glucose Level 87mg/dl (70-220) Calcium Level 9.2mg/dl (8.4-10.2) JOSE VELASQUEZ Sep 27, 2016 19:16
--- NOTE | 2016-10-01 11:42 | CONS ---
DATE OF ADMISSION: 09/17/2016 DATE OF CONSULTATION: REFERRING PHYSICIAN: REASON FOR CONSULTATION: Coronary artery disease, history of congestive heart failure, arrhythmias. CHIEF COMPLAINT: Weakness. HISTORY OF PRESENT ILLNESS: Thank you for the patient . This is a pleasant, 66-year-old gentleman. I have been known to him from previous admission to the hospital as well as outpatient workup, who came to the emergency room . The patient says that he has been very hot in his home; he does not have an air conditioner. He has noted that his blood pressure was low and he was very weak and sweaty. He was having also dyspnea on exertion. He finally decided to call Dr. Hannah who told him to come to the emergency room. In the emergency room he was noted to be hypotensive as well as in acute renal failure. He has received IV fluids and currently feeling much better. He denies any chest pain palpitations to me. PAST MEDICAL HISTORY: coronary artery disease status post DE, serial bypass surgeries, and multiple , history of SVTs, as well as history of VT, ICD placement, some hypertension, dyslipidemia, congestive heart failure, renal failure, thyroid disorder, and hyperthyroidism. MEDICATION: Medications were reviewed and as in medical . SOCIAL HISTORY: He does not smoke or drink. FAMILY HISTORY: No known history of coronary artery disease; however, the patient is adopted. ALLERGIES: NO KNOWN DRUG ALLERGIES. REVIEW OF SYSTEMS: He has had back pain which is under control. He does not take narcotics any more he says to me. All other review of systems are negative except as above mentioned. PHYSICAL EXAMINATION: VITAL SIGNS: Blood pressure is 155/73, respiratory rate of 20, satting 98 percent, heart rate of 70. Blood pressure on admission was 97/55. : No acute distress. CARDIOVASCULAR: ICD. PULMONARY: with no wheezes, had no rhonchi. GASTROINTESTINAL: Obese, soft, nontender. EXTREMITIES: NEUROLOGIC: . LABORATORY: Shows WBC of 9.2, hemoglobin of 11.4, platelets 234. Sodium 137. Potassium was 3.6 as of yesterday. BUN 26, creatinine 1.53. BUN and creatinine on the were 26 and 2.62. ProBNP of 3560. Chest x-ray showed no acute disease. EKG showed normal sinus rhythm. Right bundle branch block. Nonspecific ST- T-wave abnormalities. Review of the old chart shows that the patient's echocardiogram done on March 27 of this year showed ejection fraction of about 55 percent. ASSESSMENT AND PLAN: 1. Acute renal failure, currently is improved. 2. History of severe coronary artery disease. 3. Serial coronary bypass . 4. History of sustained VT. 5. Status post ICD. 6. Congestive heart failure. 7. dysfunction. 8. Hypertension. Labs were stable. 9. History of thyroid disorder and hyperthyroidism. 10. Dyslipidemia. RECOMMENDATIONS: We will continue with the current cardiac care. Will check the electrolytes tomorrow again, renal function tomorrow. I would also check the thyroid function test tomorrow. Will monitor on telemetry. Diuresis on hold for now. Will continue to follow along with you. Dictated By: Jorge Gaxiola MD /miles/lisseth /Document#: [id number] CC: Benny Hannah MD;*[facility] [place]*
== END 2016-09-27 18:30 | disposition home or self-care (01) | DRG 314 ==
LOC: E/R 02:15 → MS4 04:20
PROVIDERS: ADMIT Internal Medicine; ATTEND Internal Medicine
DX: I95.9 Hypotension, unspecified (principal); I50.33 Acute on chronic diastolic (congestive) heart failure; N17.9 Acute kidney failure, unspecified; I13.0 Hypertensive heart and chronic kidney disease with heart failure and stage 1 through stage 4 chronic kidney disease, or unspecified chronic kidney disease; E86.0 Dehydration; Z95.1 Presence of aortocoronary bypass graft; N18.9 Chronic kidney disease, unspecified; E05.90 Thyrotoxicosis, unspecified without thyrotoxic crisis or storm; I25.10 Atherosclerotic heart disease of native coronary artery without angina pectoris; E78.5 Hyperlipidemia, unspecified; E87.6 Hypokalemia; D64.9 Anemia, unspecified; Z87.891 Personal history of nicotine dependence; E66.9 Obesity, unspecified; Z68.36 Body mass index [BMI] 36.0-36.9, adult; I25.2 Old myocardial infarction; Z95.810 Presence of automatic (implantable) cardiac defibrillator; Z95.5 Presence of coronary angioplasty implant and graft
CPT/HCPCS: 36415; 71010; 80048; 80053; 80061; 81001; 83735; 83880; 84439; 84443; 84484; 85025; 85610; 85730; 93005; 97162; J2060; J7030; J7040; J7512

== ENCOUNTER 2017-08-06 14:50 | Emergency (ER) | END 2017-08-06 16:04 | disposition home or self-care (01) ==